=== PATIENT | male | born 1935 | race Hispanic/Latino ===

== ENCOUNTER 2017-10-01 01:09 | Inpatient (IN) | payer MEDICARE ==
[2017-10-01 01:09] VITALS: BMI 23.1
--- NOTE | 2017-10-01 01:29 | C.PDOC ---
History Of Present Illness 82 year old male presents to the ED for evaluation of palpitations. Patient reports he usually goes to dialysis Monday, and Monday, patient states he went to dialysis today. Patient reports he feels like his heart is jumping out of his chest, HR observed on monitor was 180. Patient denies CP, SOB , nausea, vomit, diaphoresis, headache, blurry vision. Time Seen by Provider: 10/01/17 01:28 Chief Complaint (Nursing): Palpitations History Per: Patient History/Exam Limitations: no limitations Onset/Duration Of Symptoms: Hrs Current Symptoms Are (Timing): Still Present Quality Of Symptoms: Rapid Heart Rate Recent travel outside of the [place]: No Additional History Per: Patient Past Medical History Reviewed: Historical Data, Nursing Documentation, Vital Signs Vital Signs: Last Vital Signs Temp Pulse 179 H 10/01/17 01:24 Resp 18 10/01/17 01:24 BP 130/79 10/01/17 01:24 Pulse Ox 99 10/01/17 01:56 - Medical History PMH: Atrial Fibrillation, HTN, Hyperlipidemia, End Stage Renal Disease, Chronic Kidney Disease Surgical History: Appendectomy, CABG, Coronary Stent Family History: States: Unknown Family Hx - Social History Hx Alcohol Use: No Hx Substance Use: No - Immunization History Hx Tetanus Toxoid Vaccination: No Hx Influenza Vaccination: Yes Hx Pneumococcal Vaccination: Yes Review Of Systems Constitutional: Negative for: Fever, Chills Cardiovascular: Positive for: Palpitations. Negative for: Chest Pain Respiratory: Negative for: Cough, Shortness of Breath Gastrointestinal: Negative for: Nausea, Vomiting, Abdominal Pain Skin: Negative for: Rash Neurological: Negative for: Weakness, Numbness, Headache, Dizziness Physical Exam - Physical Exam Appears: Non-toxic, No Acute Distress Skin: Warm, Dry Head: Normacephalic Nose: No Discharge, No Epistaxis, No Deformity Oral Mucosa: Dry Neck: Normal ROM, Supple Chest: Symmetrical, Other (dialysis shunt good thrill bruit) Cardiovascular: Rhythm Regular, No Murmur, Other (dialysis shunt good thrill bruit) Respiratory: No Decreased Breath Sounds, No Rales, No Rhonchi, No Wheezing Gastrointestinal/Abdominal: Soft, No Tenderness Extremity: Normal ROM, No Pedal Edema, No Calf Tenderness, No Deformity, No Swelling Neurological/Psych: Oriented x3 ED Course And Treatment - Laboratory Results Result Diagrams: 10/01/17 01:50 ECG: Interpreted By Me, Viewed By Me ECG Rhythm: SVT, ST/T Changes (non specific) Interpretation Of ECG: Infralateral ischemic changes Rate From EC O2 Sat by Pulse Oximetry: 99 (On RA) Pulse Ox Interpretation: Normal Progress Note: Plan: -EKG. -Blood work. -Adenosine 12 mg IVP. -Adenoside 6 mg IVP. -Cardizem 25 mg IVP. -UA. Patient was given 6 mg and 12 mg of adenosine which did not break the SVT, then patient was give also 25 mg of cardizem which decreased the HR to 97. Patient states he feels much better. repeat ekg nsr 124 lvh, nsstt changes Critical Care Time - Critical Care Note Total Time (in mins): 30 Documented critical care: time excludes all time spent performing seperately billable procedures. Disposition Discussed With : Stephan Trivedi Comment: accepted the pt on his service and took over the care at 2 AM Counseled Patient/Family Regarding: Studies Performed, Diagnosis - Disposition Disposition: HOSPITALIZED Disposition Time: 01:29 Condition: GUARDED Forms: Nival (Kiswahili) - POA Present On Arrival: None - Clinical Impression Clinical Impression: Palpitations, SVT (supraventricular tachycardia) - Scribe Statement The provider has reviewed the documentation as recorded by the Scribe Dariel Lee All medical record entries made by the Scribe were at my direction and personally dictated by me. I have reviewed the chart and agree that the record accurately reflects my personal performance of the history, physical exam, medical decision making, and the department course for this patient. I have also personally directed, reviewed, and agree with the discharge instructions and disposition. Decision To Admit - Pt Status Changed To: Hospital Disposition Of: Inpatient - Admit Certification Admit to Inpatient:: After my assessment, the patient will require hospitalization for at least two midnights. This is because of the severity of symptoms shown, intensity of services needed, and/or the medical risk in this patient being treated as an outpatient. - InPatient: Physician Admission Certification: I certify that this patient requires 2 or more midnights of care for the following reason:: After my assessment, the patient will require hospitalization for at least two midnights. This is because of the severity of symptoms shown, intensity of services needed, and/or the medical risk in this patient being treated as an outpatient. - . Bed Request Type: Telemetry Admitting Physician: Stephan Trivedi Patient Diagnosis: Palpitations, SVT (supraventricular tachycardia)
[2017-10-01 01:56] LABS: BASO # 0.1 K/uL (0.0-0.2); BASO % 1.4 % (0.0-2.0); EOS # 0.2 K/uL (0.0-0.7); EOS % 3.9 % (0.0-4.0); LYMPH # 1.8 K/uL (1.0-4.3); LYMPH % 27.3 % (20.0-40.0); MEAN CORPUSCULAR HEMOGLOBIN 35.1 pg (27.0-31.0); MEAN CORPUSCULAR HGB CONC 34.4 g/dL (33.0-37.0); MEAN PLATELET VOLUME 9.1 fL (7.2-11.7); MONO # 0.9 K/uL (0.0-0.8); MONO % 14.4 % (0.0-10.0); NEUT # 3.4 K/uL (1.8-7.0); NRBC % 0.1 % (0.0-2.0); RBC 3.41 Mil/uL (4.40-5.90); RED CELL DISTRIBUTION WIDTH 14.4 % (11.5-14.5); WHITE BLOOD COUNT 6.5 K/uL (4.8-10.8)
[2017-10-01 02:05] LABS: INR 1.1; PROTHROMBIN TIME 12.6 SECONDS (9.7-12.2)
[2017-10-01 02:10] LABS: ALB/GLOB RATIO 1.3 (1.0-2.1); ALBUMIN 4.1 g/dL (3.5-5.0); CALCIUM 9.2 mg/dl (8.6-10.4)
[2017-10-01] MEDS ORDERED: Potassium Chloride 20 mEq ER Tab PO ONE ×2 (02:14→03:42)
[2017-10-01 02:24] LABS: TROPONIN I 0.623 ng/mL (0.00-0.120)
--- NOTE | 2017-10-01 02:43 | CP.PCM.HP ---
History of Present Illness - History of Present Illness History of Present Illness: "My heart was beating fast" HPI: Mr Jose is a 82 year old male with a PMHx of CAD, AFib, HTN, ESRD on HD, HLD, who was brought to the ER by his because at around midnight today he felt like his heart was racing. He stated he was getting ready for bed and had a coughing fit and immediately after the coughing fit he felt his heart racing. His measured his heart rate which was around 200. He also had some chest tightness. He denied chest pain, dizziness, or lightheadedness. He has a history of palpitations and has had 3 prior ablations. He had a coronary stent placed in 2009 and a CABG in 2016. He also had a valve replacement in 2016. His collections clerk is Dr Kirk. He had hemodialysis yesterday morning at 5:30am. His supervisor graphite is Dr Higuera. PMD: Dr Bennett Shell Grader: Dr Kirk Airplane Pilot Helper: Dr Higuera PMHx: AFib, CAD, HLD, HTN, ESRD on HD (TThS) PSHx: Appendectomy at age 19, Prostectomy 2001, Hernia repair 2003, Coronary Stent 2009, Thoracentesis 2015, CABG 2015, Valve replacement 2015 Home Medications: Crestor 5mg PO QD, Cozaar 50mg PO QD, Eliquis 5mg PO BID, Renvela 800mg PO TID, Metoprolol Tartrate 50mg PO QD FamHx: Father had SD, DM2; Mother had SD, DM2 Social: Never smoked; Non-drinker; No illicit drugs; Lives with at home Present on Admission - Present on Admission Any Indicators Present on Admission: No Review of Systems - Constitutional Constitutional: As Per HPI. absent: Chills, Fever - EENT Eyes: absent: Change in Vision - Cardiovascular Cardiovascular: Palpitations. absent: Chest Pain, Lightheadedness - Respiratory Respiratory: absent: Cough - Gastrointestinal Gastrointestinal: absent: Abdominal Pain - Genitourinary Genitourinary: absent: Dysuria - Neurological Neurological: absent: Dizziness, Syncope Past Patient History - Infectious Disease Hx of Infectious Diseases: None - Past Social History Smoking Status: Never Smoked - CARDIAC Hx Atrial Fibrillation: Yes Hx Hypertension: Yes - PULMONARY Hx Respiratory Disorders: No Other/Comment: left pleural effusion - NEUROLOGICAL Hx Neurological Disorder: No - HEENT Hx HEENT Problems: No Hx Cataracts: Yes - RENAL Hx Chronic Kidney Disease: Yes - ENDOCRINE/METABOLIC Hx Endocrine Disorders: No - HEMATOLOGICAL/ONCOLOGICAL Hx Blood Disorders: No - INTEGUMENTARY Hx Dermatological Problems: No - MUSCULOSKELETAL/RHEUMATOLOGICAL Hx Musculoskeletal Disorders: No - GASTROINTESTINAL Hx Gastrointestinal Disorders: No Hx Constipation: Yes - GENITOURINARY/GYNECOLOGICAL Hx Genitourinary Disorders: No Hx Prostate Problems: Yes (removed at 67) - PSYCHIATRIC Hx Substance Use: No - SURGICAL HISTORY Hx Appendectomy: Yes Hx Coronary Artery Bypass Graft: Yes Hx Coronary Stent: Yes - ANESTHESIA Hx Anesthesia: Yes Hx Anesthesia Reactions: No Hx Malignant Hyperthermia: No Meds Allergies/Adverse Reactions: Allergies Allergy/AdvReac Type Severity Reaction Status Date / Time morphine Allergy VOMITING Verified 10/01/17 01:27 Physical Exam - Constitutional Appears: Well, Non-toxic, No Acute Distress - Head Exam Head Exam: ATRAUMATIC, NORMAL INSPECTION - Eye Exam Eye Exam: EOMI, Normal appearance - ENT Exam ENT Exam: Mucous Membranes Moist - Neck Exam Neck exam: Positive for: Full Rom, Normal Inspection. Negative for: Tenderness - Respiratory Exam Respiratory Exam: Clear to Auscultation Bilateral, NORMAL BREATHING PATTERN. absent: Rales, Rhonchi, Wheezes - Cardiovascular Exam Cardiovascular Exam: Tachycardia, Irregular Rhythm. absent: JVD - GI/Abdominal Exam GI & Abdominal Exam: Normal Bowel Sounds, Soft. absent: Distended, Firm, Guarding, Tenderness - Extremities Exam Extremities exam: Positive for: normal inspection Additional comments: Left arm with HD access site - Neurological Exam Neurological exam: Alert, Oriented x3 - Psychiatric Exam Psychiatric exam: Normal Affect, Normal Mood - Skin Skin Exam: Intact, Normal Color, Warm Additional comments: Midline surgical scar at sternum Results - Vital Signs Recent Vital Signs: Last Vital Signs Temp Pulse 179 H 10/01/17 01:24 Resp 18 10/01/17 01:24 BP 130/79 10/01/17 01:24 Pulse Ox 99 10/01/17 02:08 - Labs Result Diagrams: 10/01/17 01:50 10/01/17 01:50 Labs: Laboratory Results - last 24 hr 10/01/17 10/01/17 10/01/17 01:50 01:50 01:50 WBC 6.5 RBC 3.41 L Hgb 12.0 Hct 34.8 L MCV 102.0 H MCH 35.1 H MCHC 34.4 RDW 14.4 Plt Count 190 MPV 9.1 Neut % (Auto) 53.0 Lymph % (Auto) 27.3 [place] % (Auto) 14.4 H Eos % (Auto) 3.9 Baso % (Auto) 1.4 Neut # 3.4 Lymph # 1.8 [place] # 0.9 H Eos # 0.2 Baso # 0.1 PT 12.6 H INR 1.1 Sodium 136 Potassium 3.2 L Chloride 88 L Carbon Dioxide 35 H Anion Gap 16 BUN 21 H Creatinine 4.9 H Est GFR ( Amer) 14 Est GFR (Non-Af Amer) 11 Random Glucose 140 H Calcium 9.2 Total Bilirubin 0.6 AST 24 ALT 28 Alkaline Phosphatase 153 H Troponin I 0.6230 H* NT-Pro-B Natriuret Pep 17111 H Total Protein 7.3 Albumin 4.1 Globulin 3.2 Albumin/Globulin Ratio 1.3 Assessment & Plan (1) SVT (supraventricular tachycardia) Assessment and Plan: Consult Shell Grader Dr Kirk Regular rhythm tachy HR in 180's narrow complex not responded to adenosine, slowed with cardizem drip currently 7mg/hr, rhythm is sinus 1st deg av block with PAC s/p ablation x3 Con't home med Eliquis 5mg PO BID Cardizem Drip Status: Acute (2) ESRD (end stage renal disease) on dialysis Assessment and Plan: Consult Nephrology, Dr Higuera HD on [facility]Th[facility] Con't home med Renvela 800mg PO TID Status: Acute (3) CAD (coronary artery disease) Assessment and Plan: Coronary Stent 2009, CABG 2015, Valve replacement 2016 Trop elevated 2/2 ESRD Con't home med crestor 5mg PO QD Con't home med Cozaar 50mg PO QD Con't home med metoprolol tartrate 50mg PO QD Status: Acute (4) HLD (hyperlipidemia) Assessment and Plan: Con't home med crestor 5mg PO QD Status: Acute (5) HTN (hypertension) Assessment and Plan: BP well controlled Con't home med Cozaar 50mg PO QD Con't home med metoprolol tartrate 50mg PO QD Status: Acute (6) History of atrial fibrillation Assessment and Plan: s/p ablation x3; cont' home med eliquis 5mg PO BID Status: Acute (7) Prophylactic measure Assessment and Plan: Eliquis 5mg PO BID, SCDs Protonix 40mg PO QD Heart healthy Diet Status: Acute
[2017-10-01] MEDS ORDERED: Metoprolol 1 mg/ml Inj IVP ONE (03:16)
--- NOTE | 2017-10-01 05:44 | CP.PCM.PN ---
Subjective - Date & Time of Evaluation Date of Evaluation: 10/01/17 Time of Evaluation: 05:38 - Subjective Subjective: Assessment * Regular rhythm tachy HR in 180's narrow complex not responded to adenosine, slowed with cardizem drip currently 7mg/hr, rhythm is sinus 1st deg av block with PAC * H/o Aflutter in past s/p ablation x2, h/o AVR, h/o CABG 1 1/2 yrs back after with the Aflutter stopped, pt on eliquis, Dr. Kirk is general magistrate. * H/o HTN * ESRD on hd Dr. Higuera is his physician Plan * Patient given additional dose of metoprolol, continue home meds, continue non titrable cardizem * May need w/u for ischemia * Cardiology and nephrology consult * See orders for detail. Objective - Vital Signs/Intake and Output Vital Signs (last 24 hours): Temp Pulse Resp BP Pulse Ox 179 H 18 112/58 L 99 10/01/17 01:24 10/01/17 01:24 10/01/17 03:20 10/01/17 02:08 - Medications Medications: Current Medications Apixaban (Eliquis) 5 mg PO BID [facility] Diltiazem HCl 125 mg/ Sodium (Chloride) 125 mls @ 5 mls/hr IV .Q24H [facility] PRN Reason: 5 MG/HR Last Admin: 10/01/17 01:53 Dose: 5 mls/hr Losartan Potassium (Cozaar) 50 mg PO DAILY [facility] Metoprolol Tartrate (Lopressor) 50 mg PO DAILY [facility] Rosuvastatin Calcium (Crestor) 5 mg PO HS [facility] Sevelamer Carbonate (Renvela) 800 mg PO TIDCC [facility] - Labs Labs: 10/01/17 01:50 10/01/17 01:50 PT 12.6 SECONDS (9.7-12.2) H 10/01/17 01:50 INR 1.1 10/01/17 01:50
--- NOTE | 2017-10-01 08:36 | CP.PCM.PN ---
<Tammy Mary - Last Filed: 10/01/17 11:23> Subjective - Date & Time of Evaluation Date of Evaluation: 10/01/17 Time of Evaluation: 09:00 - Subjective Subjective: Medicine progress note for Dr. Medina: Patient was seen and examined at bedside this morning. Patient denied chest pain , palpitations, or SOB. He states he is able to eat normally without N/V. He had no complaints today. States he has had many episodes of rapid heart rate due to A fib in the past. We will wait for Dr. Kirk and Dr. Higuera to evaluate the patient before discharge. The patient was requesting to go home. Objective - Vital Signs/Intake and Output Vital Signs (last 24 hours): Temp Pulse Resp BP Pulse Ox 98.1 F 54 L 18 123/54 L 100 10/01/17 05:15 10/01/17 07:15 10/01/17 07:15 10/01/17 07:15 10/01/17 07:15 - Medications Medications: Current Medications Apixaban (Eliquis) 5 mg PO BID [facility] Diltiazem HCl 125 mg/ Sodium (Chloride) 125 mls @ 5 mls/hr IV .Q24H [facility] PRN Reason: 5 MG/HR Last Admin: 10/01/17 01:53 Dose: 5 mls/hr Losartan Potassium (Cozaar) 50 mg PO DAILY [facility] Metoprolol Tartrate (Lopressor) 50 mg PO DAILY [facility] Pantoprazole Sodium (Protonix Ec Tab) 40 mg PO DAILY [facility] Rosuvastatin Calcium (Crestor) 5 mg PO HS [facility] Sevelamer Carbonate (Renvela) 800 mg PO TIDCC [facility] - Labs Labs: 10/01/17 01:50 10/01/17 01:50 PT 12.6 SECONDS (9.7-12.2) H 10/01/17 01:50 INR 1.1 10/01/17 01:50 - Constitutional Appears: Non-toxic, No Acute Distress - Head Exam Head Exam: ATRAUMATIC, NORMAL INSPECTION - Eye Exam Eye Exam: EOMI - ENT Exam ENT Exam: Mucous Membranes Moist - Respiratory Exam Respiratory Exam: Clear to Ausculation Bilateral, NORMAL BREATHING PATTERN. absent: Respiratory Distress - Cardiovascular Exam Cardiovascular Exam: REGULAR RHYTHM, +S1, +S2 - GI/Abdominal Exam GI & Abdominal Exam: Soft, Normal Bowel Sounds. absent: Distended, Firm, Guarding, Tenderness - Extremities Exam Extremities Exam: Normal Inspection. absent: Calf Tenderness - Back Exam Back Exam: NORMAL INSPECTION. absent: CVA tenderness (L), CVA tenderness (R) - Neurological Exam Neurological Exam: Alert, Awake, CN II-XII Intact, Oriented x3 - Psychiatric Exam Psychiatric exam: Normal Affect, Normal Mood - Skin Skin Exam: Dry, Intact, Normal Color, Warm Assessment and Plan - Assessment and Plan (Free Text) Assessment: SVT (supraventricular tachycardia) Assessment and Plan: Consult Assembler Wet Wash Dr Kirk - f/u recs HR in the 60s on tele monitor Overnight: Regular rhythm tachy HR in 180's narrow complex not responded to adenosine, slowed with cardizem drip currently 7mg/hr, rhythm is sinus 1st deg av block with PAC. Cardizem drip was discontinued because patients HR was down into the 50s s/p ablation x3 Eliquis 5mg PO BID Trop #1 - 0.6230, Trop #2 - 0.9560 f/u ekg Status: Acute ESRD (end stage renal disease) on dialysis Assessment and Plan: Consult Nephrology, Dr Higuera HD on [facility]Th[facility] Renvela 800mg PO TID Status: Acute CAD (coronary artery disease) Assessment and Plan: Coronary Stent 2009, CABG 2015, Valve replacement 2015 Trop elevated 2/2 ESRD crestor 5mg PO QD Cozaar 50mg PO QD metoprolol tartrate 50mg PO QD Status: Acute HLD (hyperlipidemia) Assessment and Plan: Crestor 5mg PO QD Status: Acute HTN (hypertension) Assessment and Plan: BP well controlled Cozaar 50mg PO QD metoprolol tartrate 50mg PO QD Status: Acute History of atrial fibrillation Assessment and Plan: s/p ablation x3; eliquis 5mg PO BID Status: Acute Prophylactic measure Assessment and Plan: Eliquis 5mg PO BID SCDs Protonix 40mg PO QD Heart healthy Diet Status: Acute <Tramaine Medina - Last Filed: 10/01/17 15:03> Objective - Vital Signs/Intake and Output Vital Signs (last 24 hours): Temp Pulse Resp BP Pulse Ox 97.5 F L 61 20 133/58 L 98 10/01/17 12:14 10/01/17 12:14 10/01/17 12:14 10/01/17 12:14 10/01/17 12:14 Intake and Output: 10/01/17 10/01/17 06:59 18:59 Intake Total 480 Balance 480 - Medications Medications: Current Medications Apixaban (Eliquis) 5 mg PO BID [facility] Last Admin: 10/01/17 10:09 Dose: 5 mg Aspirin (Ecotrin) 81 mg PO DAILY [facility] Diltiazem HCl (Cardizem) 30 mg PO TID [facility] Last Admin: 10/01/17 13:59 Dose: Not Given Diltiazem HCl 125 mg/ Sodium (Chloride) 125 mls @ 5 mls/hr IV .Q24H [facility] PRN Reason: 5 MG/HR Last Admin: 10/01/17 01:53 Dose: 5 mls/hr Losartan Potassium (Cozaar) 50 mg PO DAILY [facility] Last Admin: 10/01/17 10:09 Dose: 50 mg Metoprolol Tartrate (Lopressor) 25 mg PO BID [facility] Last Admin: 10/01/17 12:14 Dose: 25 mg Pantoprazole Sodium (Protonix Ec Tab) 40 mg PO DAILY [facility] Last Admin: 10/01/17 10:09 Dose: 40 mg Potassium Chloride (K-Dur 20 Meq Er Tab) 20 meq PO BRK [facility] Last Admin: 10/01/17 13:21 Dose: 20 meq Rosuvastatin Calcium (Crestor) 5 mg PO HS [facility] Sevelamer Carbonate (Renvela) 800 mg PO TIDCC [facility] Last Admin: 10/01/17 12:10 Dose: 800 mg - Labs Labs: 10/01/17 09:40 10/01/17 09:40 PT 12.6 SECONDS (9.7-12.2) H 10/01/17 01:50 INR 1.1 10/01/17 01:50 Attending/Attestation - Attestation I have personally seen and examined this patient.: Yes I have fully participated in the care of the patient.: Yes I have reviewed all pertinent clinical information, including history, physical exam and plan: Yes Notes (Text): Medical attending: Patient was seen and examined by me. Agree with the above note by the resident This is a 82-year-old male with an extensive cardiac history including valvular replacement 2016, atrial fibrillation, CAD, CABG surgery in 2016 and end-stage renal disease for which she gets to 6 and Saturdays hemodialysis. He came in with the chief complaint of sensation of rapid heart rate. He does have history of atrial fibrillation. In the emergency room he initially received adenosine for what was initially thought to be SVT, this did not work he was then given Cardizem which then slowed down the rate and was subsequently placed on a Cardizem drip earlier this morning when he was readmitted. Before he reached the telemetry floor, the patient's heart rate returned to the 50s to 60s range and the Cardizem drip was stopped. He is now on PO lopressor and PO Cardizem By the time we saw the patient this morning, he reported feeling fine. He was not having shortness of breath. He was not having chest pain. He reported he no longer had the sensation of palpitations. He requested to go home, however we advised him he should be evaluated by his refuge worker and vice president and portfolio manager He did have a chest XRAY and it did not suggest any significant amounts of pleural effusion or pulmonary edema Tramaine Medina
--- NOTE | 2017-10-01 08:49 | RAD ---
PROCEDURE: CHEST RADIOGRAPH, 1 VIEW HISTORY: chest pain COMPARISON: Comparison is made to 08/04/2017 FINDINGS: LUNGS: No evidence of new infiltrate or consolidation in the lungs. PLEURA: Blunting of the left costophrenic angle is again noted likely due to pleural thickening. The possibility of small left pleural effusion is not totally excluded. CARDIOVASCULAR: The cardiac silhouette is prominent in size. Post cardiac surgery changes are again noted. OSSEOUS STRUCTURES: No significant abnormalities. VISUALIZED UPPER ABDOMEN: Normal. OTHER FINDINGS: None. IMPRESSION: No significant interval change noted since the previous exam.
[2017-10-01] MEDS: Pantoprazole 40 mg EC Tab PO SCH (10:09)
[2017-10-01 10:12] LABS: BASO # 0.1 K/uL (0.0-0.2); BASO % 1.4 % (0.0-2.0); EOS # 0.3 K/uL (0.0-0.7); EOS % 4.9 % (0.0-4.0); HEMOGLOBIN 11.1 g/dL (12.0-18.0); LYMPH # 1.5 K/uL (1.0-4.3); LYMPH % 21.6 % (20.0-40.0); MEAN CELL VOLUME 102.9 fL (80.0-94.0); MEAN CORPUSCULAR HEMOGLOBIN 34.9 pg (27.0-31.0); MEAN CORPUSCULAR HGB CONC 33.9 g/dL (33.0-37.0); MONO # 0.8 K/uL (0.0-0.8); MONO % 12.2 % (0.0-10.0); NEUT % 59.9 % (50.0-75.0); RBC 3.17 Mil/uL (4.40-5.90); RED CELL DISTRIBUTION WIDTH 15.1 % (11.5-14.5); WHITE BLOOD COUNT 6.7 K/uL (4.8-10.8)
[2017-10-01 10:23] LABS: ALB/GLOB RATIO 1.3 (1.0-2.1); ALBUMIN 3.7 g/dL (3.5-5.0); CALCIUM 8.9 mg/dl (8.6-10.4); CK-MB 2.25 ng/mL (0.0-3.38); MAGNESIUM 2.1 mg/dL (1.6-2.3)
[2017-10-01 10:35] LABS: TROPONIN I 0.956 ng/mL (0.00-0.120)
--- NOTE | 2017-10-01 12:49 | CP.PCM.CON ---
History of Present Illness - History of Present Illness History of Present Illness: THe pt is an 82 year old man with CKD, on dialysis, with a long PMH. Pt had CABG avr in 201g, after previously having stents. He had ablation in 2012 twice for svt. Pt had a cough recenlty, and repeat outpatient echo demonstrated normal LV EF and normal functioning bio aortic valve. A chest ct was also negative. Pt had his dialysis volume increased, and cough resolved, suggesting he had a degree of diastolic dysfunction. ] Pt has had no chest pain, and was lifting his hands over his head to take off a sweater and noticed fast heart rates. He went to ER and rapid svt noted with marked st depression. Pt converted to nsr with IOV cardezem. Feels well today and wants to go home. TNI has risen to ,9. ECG in s elbert reveals mild first degree av block and diffuse non specific st changes. Review of Systems - Review of Systems All systems: reviewed and no additional remarkable complaints except (as above) Past Patient History - Infectious Disease Hx of Infectious Diseases: None - Past Medical History & Family History Past Medical History?: Yes - Past Social History Smoking Status: Never Smoked - CARDIAC Hx Atrial Fibrillation: Yes Hx Hypertension: Yes - PULMONARY Hx Respiratory Disorders: No Other/Comment: left pleural effusion - NEUROLOGICAL Hx Neurological Disorder: No - HEENT Hx HEENT Problems: No Hx Cataracts: Yes - RENAL Hx Chronic Kidney Disease: Yes - ENDOCRINE/METABOLIC Hx Endocrine Disorders: No - HEMATOLOGICAL/ONCOLOGICAL Hx Blood Disorders: No - INTEGUMENTARY Hx Dermatological Problems: No - MUSCULOSKELETAL/RHEUMATOLOGICAL Hx Falls: No - GASTROINTESTINAL Hx Gastrointestinal Disorders: No Hx Constipation: Yes - GENITOURINARY/GYNECOLOGICAL Hx Genitourinary Disorders: No Hx Prostate Problems: Yes (removed at 67) - PSYCHIATRIC Hx Substance Use: No - SURGICAL HISTORY Hx Appendectomy: Yes Hx Coronary Artery Bypass Graft: Yes Hx Coronary Stent: Yes - ANESTHESIA Hx Anesthesia: Yes Hx Anesthesia Reactions: No Hx Malignant Hyperthermia: No Meds Allergies/Adverse Reactions: Allergies Allergy/AdvReac Type Severity Reaction Status Date / Time morphine Allergy VOMITING Verified 10/01/17 01:27 - Medications Medications: Current Medications Apixaban (Eliquis) 5 mg PO BID [facility] Last Admin: 10/01/17 10:09 Dose: 5 mg Diltiazem HCl 125 mg/ Sodium (Chloride) 125 mls @ 5 mls/hr IV .Q24H [facility] PRN Reason: 5 MG/HR Last Admin: 10/01/17 01:53 Dose: 5 mls/hr Losartan Potassium (Cozaar) 50 mg PO DAILY [facility] Last Admin: 10/01/17 10:09 Dose: 50 mg Metoprolol Tartrate (Lopressor) 25 mg PO BID [facility] Last Admin: 10/01/17 12:14 Dose: 25 mg Pantoprazole Sodium (Protonix Ec Tab) 40 mg PO DAILY [facility] Last Admin: 10/01/17 10:09 Dose: 40 mg Rosuvastatin Calcium (Crestor) 5 mg PO [facility] Sevelamer Carbonate (Renvela) 800 mg PO TIDCC [facility] Last Admin: 10/01/17 12:10 Dose: 800 mg Physical Exam - Constitutional Appears: Well - Head Exam Head Exam: ATRAUMATIC - Eye Exam Eye Exam: EOMI, Normal appearance - ENT Exam ENT Exam: Mucous Membranes Moist - Cardiovascular Exam Cardiovascular Exam: REGULAR RHYTHM - GI/Abdominal Exam GI & Abdominal Exam: Normal Bowel Sounds - Exam External exam: NORMAL EXTERNAL EXAM - Extremities Exam Extremities exam: Positive for: normal inspection - Back Exam Back exam: NORMAL INSPECTION - Neurological Exam Neurological exam: Alert, Normal Gait, Oriented x3, Reflexes Normal - Psychiatric Exam Psychiatric exam: Normal Affect - Skin Skin Exam: Normal Color Results - Vital Signs Recent Vital Signs: Last Vital Signs Temp 97.5 F L 10/01/17 12:14 Pulse 61 10/01/17 12:14 Resp 20 10/01/17 12:14 BP 133/58 L 10/01/17 12:14 Pulse Ox 98 10/01/17 12:14 - Labs Result Diagrams: 10/01/17 09:40 10/01/17 09:40 Labs: Laboratory Results - last 24 hr 10/01/17 10/01/17 10/01/17 01:50 01:50 01:50 WBC 6.5 RBC 3.41 L Hgb 12.0 Hct 34.8 L MCV 102.0 H MCH 35.1 H MCHC 34.4 RDW 14.4 Plt Count 190 MPV 9.1 Neut % (Auto) 53.0 Lymph % (Auto) 27.3 Hunt % (Auto) 14.4 H Eos % (Auto) 3.9 Baso % (Auto) 1.4 Neut # 3.4 Lymph # 1.8 Hunt # 0.9 H Eos # 0.2 Baso # 0.1 PT 12.6 H INR 1.1 Sodium 136 Potassium 3.2 L Chloride 88 L Carbon Dioxide 35 H Anion Gap 16 BUN 21 H Creatinine 4.9 H Est GFR ( Amer) 14 Est GFR (Non-Af Amer) 11 Random Glucose 140 H Calcium 9.2 Phosphorus Magnesium Total Bilirubin 0.6 AST 24 ALT 28 Alkaline Phosphatase 153 H Total Creatine Kinase CK-MB (Mass) Troponin I 0.6230 H* NT-Pro-B Natriuret Pep 81420 H Total Protein 7.3 Albumin 4.1 Globulin 3.2 Albumin/Globulin Ratio 1.3 10/01/17 10/01/17 09:40 09:40 WBC 6.7 RBC 3.17 L Hgb 11.1 L Hct 32.6 L MCV 102.9 H MCH 34.9 H MCHC 33.9 RDW 15.1 H Plt Count 172 MPV 9.0 Neut % (Auto) 59.9 Lymph % (Auto) 21.6 Hunt % (Auto) 12.2 H Eos % (Auto) 4.9 H Baso % (Auto) 1.4 Neut # 4.0 Lymph # 1.5 Hunt # 0.8 Eos # 0.3 Baso # 0.1 PT INR Sodium 133 Potassium 3.6 Chloride 90 L Carbon Dioxide 37 H Anion Gap 10 BUN 26 H Creatinine 5.0 H Est GFR ( Amer) 14 Est GFR (Non-Af Amer) 11 Random Glucose 129 H Calcium 8.9 Phosphorus 4.0 Magnesium 2.1 Total Bilirubin 0.6 AST 26 ALT 29 Alkaline Phosphatase 113 Total Creatine Kinase 51 L CK-MB (Mass) 2.25 Troponin I 0.9560 H* NT-Pro-B Natriuret Pep Total Protein 6.6 Albumin 3.7 Globulin 2.9 Albumin/Globulin Ratio 1.3 - EKG Data EKG comments: by me as above Assessment & Plan - Assessment and Plan (Free Text) Assessment: 1. SVT: pt cannot tolerate amiodrone (tried in the past). Will try to add in addition a low dose of cardezem if HR and BP allow. Pt is advsied to have repeat ablation, after a nuclear stress test. 2. Pt has no angina, but during tachycardia, marked st depression and a small non stemi from demand ischemia. add asa. Pt is on eliquis already. He is on a statin. a nuclear stress test is advised prior to ablation to assess for ischemia (after cabg ion 2016). If pt is stable tomorrow, he will prefer to do this as outpatient. 3. Replace K. Mag level is good. 4. TFTs
[2017-10-01] MEDS: Potassium Chloride 20 mEq ER Tab PO SCH (13:21)
[2017-10-01 18:05] LABS: URINE BILIRUBIN NEGATIVE (NEGATIVE); URINE BLOOD NEGATIVE (NEGATIVE); URINE CLARITY Clear (Clear); URINE COLOR Yellow (YELLOW); URINE GLUCOSE (UA) NORMAL (Normal); URINE LEUKOCYTE ESTERASE NEG Leu/uL (Negative); URINE NITRATE NEGATIVE (NEGATIVE); URINE PROTEIN 2+ mg/dL (NEGATIVE); URINE UROBILINOGEN NORMAL mg/dL (0.2-1.0)
[2017-10-02 01:29] VITALS: RESP 20
[2017-10-02 07:58] VITALS: PULSE 72; TEMP 97.5; O2SAT 96
[2017-10-02 08:25] LABS: BASO # 0.1 K/uL (0.0-0.2); BASO % 1.2 % (0.0-2.0); EOS # 0.5 K/uL (0.0-0.7); EOS % 5.8 % (0.0-4.0); HEMOGLOBIN 11.2 g/dL (12.0-18.0); LYMPH # 1.6 K/uL (1.0-4.3); LYMPH % 20.3 % (20.0-40.0); MEAN CELL VOLUME 102.2 fL (80.0-94.0); MEAN CORPUSCULAR HEMOGLOBIN 35.5 pg (27.0-31.0); MEAN CORPUSCULAR HGB CONC 34.7 g/dL (33.0-37.0); MONO # 0.8 K/uL (0.0-0.8); MONO % 10.8 % (0.0-10.0); NEUT # 4.8 K/uL (1.8-7.0); NEUT % 61.9 % (50.0-75.0); RBC 3.17 Mil/uL (4.40-5.90); RED CELL DISTRIBUTION WIDTH 14.6 % (11.5-14.5); WHITE BLOOD COUNT 7.8 K/uL (4.8-10.8)
--- NOTE | 2017-10-02 08:39 | CP.PCM.DIS ---
<BrittonYosef R - Last Filed: 10/02/17 10:22> Provider - Provider Date of Admission: 10/01/17 02:06 Attending physician: Stephan Trivedi MD Primary care physician: PMD: Dr Bennett Consults: Research Worker Encyclopedia: Dr Kirk Online Media Buyer: Dr Higuera Time Spent in preparation of Discharge (in minutes): 42 Diagnosis - Discharge Diagnosis (1) SVT (supraventricular tachycardia) Status: Resolved Priority: High (2) ESRD (end stage renal disease) on dialysis Status: Chronic Priority: Medium (3) CAD (coronary artery disease) Status: Chronic Priority: Medium (4) HLD (hyperlipidemia) Status: Chronic Priority: Medium (5) HTN (hypertension) Status: Acute (6) History of atrial fibrillation Status: Chronic Priority: Medium (7) Prophylactic measure Status: Resolved Priority: Low Hospital Course - Lab Results Lab Results: Most Recent Lab Values WBC 7.8 K/uL (4.8-10.8) 10/02/17 08:18 RBC 3.17 Mil/uL (4.40-5.90) L 10/02/17 08:18 Hgb 11.2 g/dL (12.0-18.0) L 10/02/17 08:18 Hct 32.4 % (35.0-51.0) L 10/02/17 08:18 MCV 102.2 fL (80.0-94.0) H 10/02/17 08:18 MCH 35.5 pg (27.0-31.0) H 10/02/17 08:18 MCHC 34.7 g/dL (33.0-37.0) 10/02/17 08:18 RDW 14.6 % (11.5-14.5) H 10/02/17 08:18 Plt Count 171 K/uL (130-400) 10/02/17 08:18 MPV 9.0 fL (7.2-11.7) 10/02/17 08:18 Neut % (Auto) 61.9 % (50.0-75.0) 10/02/17 08:18 Lymph % (Auto) 20.3 % (20.0-40.0) 10/02/17 08:18 Snyder % (Auto) 10.8 % (0.0-10.0) H 10/02/17 08:18 Eos % (Auto) 5.8 % (0.0-4.0) H 10/02/17 08:18 Baso % (Auto) 1.2 % (0.0-2.0) 10/02/17 08:18 Neut # 4.8 K/uL (1.8-7.0) 10/02/17 08:18 Lymph # 1.6 K/uL (1.0-4.3) 10/02/17 08:18 Snyder # 0.8 K/uL (0.0-0.8) 10/02/17 08:18 Eos # 0.5 K/uL (0.0-0.7) 10/02/17 08:18 Baso # 0.1 K/uL (0.0-0.2) 10/02/17 08:18 PT 12.6 SECONDS (9.7-12.2) H 10/01/17 01:50 INR 1.1 10/01/17 01:50 Sodium 133 mmol/L (132-148) 10/01/17 09:40 Potassium 3.6 mmol/L (3.6-5.2) 10/01/17 09:40 Chloride 90 mmol/L (98-107) L 10/01/17 09:40 Carbon Dioxide 37 mmol/L (22-30) H 10/01/17 09:40 Anion Gap 10 (10-20) 10/01/17 09:40 BUN 26 mg/dL (9-20) H 10/01/17 09:40 Creatinine 5.0 mg/dL (0.8-1.5) H 10/01/17 09:40 Est GFR ( Amer) 14 10/01/17 09:40 Est GFR (Non-Af Amer) 11 10/01/17 09:40 Random Glucose 129 mg/dL (75-110) H 10/01/17 09:40 Calcium 8.9 mg/dl (8.6-10.4) 10/01/17 09:40 Phosphorus 4.0 mg/dL (2.5-4.5) 10/01/17 09:40 Magnesium 2.1 mg/dL (1.6-2.3) 10/01/17 09:40 Total Bilirubin 0.6 mg/dL (0.2-1.3) 10/01/17 09:40 AST 26 U/L (17-59) 10/01/17 09:40 ALT 29 U/L (21-72) 10/01/17 09:40 Alkaline Phosphatase 113 U/L (38-126) 10/01/17 09:40 Total Creatine Kinase 51 U/L (55-170) L 10/01/17 09:40 CK-MB (Mass) 2.25 ng/mL (0.0-3.38) 10/01/17 09:40 Troponin I 0.9560 ng/mL (0.00-0.120) H* 10/01/17 09:40 NT-Pro-B Natriuret Pep 16506 pg/mL (0-900) H 10/01/17 01:50 Total Protein 6.6 g/dL (6.3-8.3) 10/01/17 09:40 Albumin 3.7 g/dL (3.5-5.0) 10/01/17 09:40 Globulin 2.9 gm/dL (2.2-3.9) 10/01/17 09:40 Albumin/Globulin Ratio 1.3 (1.0-2.1) 10/01/17 09:40 Urine Color Yellow (YELLOW) 10/01/17 17:45 Urine Clarity Clear (Clear) 10/01/17 17:45 Urine pH 8.0 (5.0-8.0) 10/01/17 17:45 Ur Specific [place] 1.015 (1.003-1.030) 10/01/17 17:45 Urine Protein 2+ mg/dL (NEGATIVE) H 10/01/17 17:45 Urine Glucose (UA) Normal mg/dL (Normal) 10/01/17 17:45 Urine Ketones Negative mg/dL (NEGATIVE) 10/01/17 17:45 Urine Blood Negative (NEGATIVE) 10/01/17 17:45 Urine Nitrate Negative (NEGATIVE) 10/01/17 17:45 Urine Bilirubin Negative (NEGATIVE) 10/01/17 17:45 Urine Urobilinogen Normal mg/dL (0.2-1.0) 10/01/17 17:45 Ur Leukocyte Esterase Neg Maycol/uL (Negative) 10/01/17 17:45 Urine WBC (Auto) < 1 /hpf (0-5) 10/01/17 17:45 Urine RBC (Auto) 2 /hpf (0-3) 10/01/17 17:45 - Hospital Course Hospital Course: "My heart was beating fast" HPI: Mr Jose is a 82 year old male with a PMHx of CAD, AFib, HTN, ESRD on HD, HLD, who was brought to the ER by his because at around midnight today he felt like his heart was racing. He stated he was getting ready for bed and had a coughing fit and immediately after the coughing fit he felt his heart racing. His measured his heart rate which was around 200. He also had some chest tightness. He denied chest pain, dizziness, or lightheadedness. He has a history of palpitations and has had 3 prior ablations. He had a coronary stent placed in 2009 and a CABG in 2016. He also had a valve replacement in 2016. His manager recruitment is Dr Kirk. He had hemodialysis yesterday morning at 5:30am. His intellectual property manager is Dr Higuera. PMD: Dr Bennett Research Worker Encyclopedia: Dr Kirk Online Media Buyer: Dr Higuera PMHx: AFib, CAD, HLD, HTN, ESRD on HD (TThS) PSHx: Appendectomy at age 19, Prostectomy 2001, Hernia repair 2003, Coronary Stent 2009, Thoracentesis 2015, CABG 2015, Valve replacement 2015 Home Medications: Crestor 5mg PO QD, Cozaar 50mg PO QD, Eliquis 5mg PO BID, Renvela 800mg PO TID, Metoprolol Tartrate 50mg PO QD FamHx: Father had VT, DM2; Mother had VT, DM2 Social: Never smoked; Non-drinker; No illicit drugs; Lives with at home HOSPITAL COURSE: This is a patient with a PMHx of SVT and AFib (including what is stated above) who was given various medications to break him out of his SVT. He presented with regular rhythm tachy HR in 180's narrow complex which did not respond to adenosine. The rate slowed with cardizem drip which ran at 7mg/hr and resulted in a rhythm sinus 1st deg av block with PAC. The cardizem drip was eventually discontinued due to a HR in the 50s. His cardiolgist, Dr Kirk was consulted and left the following note (please see his full note for more details): 1. SVT: pt cannot tolerate amiodrone (tried in the past). Will try to add in addition a low dose of cardezem if HR and BP allow. Pt is advsied to have repeat ablation, after a nuclear stress test. 2. Pt has no angina, but during tachycardia, marked st depression and a small non stemi from demand ischemia. add asa. Pt is on eliquis already. He is on a statin. a nuclear stress test is advised prior to ablation to assess for ischemia (after cabg ion 2016). If pt is stable tomorrow, he will prefer to do this as outpatient. 3. Replace K. Mag level is good. 4. TFTs He was given his home medications to treat his other chronic conditions which include ESRD on HD, CAD, HLD, HTN and a Hx of AFib. Discharge Exam - Head Exam Head Exam: ATRAUMATIC - Additional Findings Additional findings: - Constitutional Appears: Non-toxic, No Acute Distress - Head Exam Head Exam: ATRAUMATIC, NORMAL INSPECTION - Eye Exam Eye Exam: EOMI - ENT Exam ENT Exam: Mucous Membranes Moist - Respiratory Exam Respiratory Exam: Clear to Ausculation Bilateral, NORMAL BREATHING PATTERN. absent: Respiratory Distress - Cardiovascular Exam Cardiovascular Exam: REGULAR RHYTHM, +S1, +S2 - GI/Abdominal Exam GI & Abdominal Exam: Soft, Normal Bowel Sounds. absent: Distended, Firm, Guarding, Tenderness - Extremities Exam Extremities Exam: Normal Inspection. absent: Calf Tenderness - Back Exam Back Exam: NORMAL INSPECTION. absent: CVA tenderness (L), CVA tenderness (R) - Neurological Exam Neurological Exam: Alert, Awake, CN II-XII Intact, Oriented x3 - Psychiatric Exam Psychiatric exam: Normal Affect, Normal Mood - Skin Skin Exam: Dry, Intact, Normal Color, Warm Discharge Plan - Discharge Medications Prescriptions: Aspirin [Ecotrin] 81 mg PO DAILY 30 Days #30 tabec Metoprolol Tartrate [Lopressor] 25 mg PO BID 30 Days #60 tab - Follow Up Plan Condition: GOOD Disposition: HOME/ ROUTINE Instructions: Metoprolol (By mouth), Apixaban (By mouth), Supraventricular Tachycardia (DC), Supraventricular Tachycardia (GEN), Palpitations (DC), Palpitations (GEN) Additional Instructions: Patient is medically stable for discharge. Your manager recruitment has recommended you take the following new medications: 1. Aspirin 81mg 1 tablet once a day Please resume all your other home medications which include Eliquis, Cozaar, Metoprolol Tartrate, Crestor, and Renvela. Please note that you should be taking Metoprolol Tartrate 25mg twice a day - If you have 50mg tablets, make sure to break them in half and take half in the morning and half in the evening. Please make an appointment and follow-up with your Research Worker Encyclopedia, Dr Kirk. He has recommended a Stress Test and a possible ablation afterwards. Please follow-up with your PMD, Dr Bennett, so he may be aware of this hospital stay. Please resume hemodialysis as scheduled. If symptoms return or worsen, please return to the ER. Referrals: Surendra Kirk MD [Staff Provider] - Tramaine Medina DO [Staff Provider] - Silvestre Bennett DO [Doctor Osteopathy] - <Tramaine Medina - Last Filed: 10/02/17 18:46> Provider - Provider Date of Admission: 10/01/17 02:06 Attending physician: Stephan Trivedi MD Hospital Course - Lab Results Lab Results: Most Recent Lab Values WBC 7.8 K/uL (4.8-10.8) 10/02/17 08:18 RBC 3.17 Mil/uL (4.40-5.90) L 10/02/17 08:18 Hgb 11.2 g/dL (12.0-18.0) L 10/02/17 08:18 Hct 32.4 % (35.0-51.0) L 10/02/17 08:18 MCV 102.2 fL (80.0-94.0) H 10/02/17 08:18 MCH 35.5 pg (27.0-31.0) H 10/02/17 08:18 MCHC 34.7 g/dL (33.0-37.0) 10/02/17 08:18 RDW 14.6 % (11.5-14.5) H 10/02/17 08:18 Plt Count 171 K/uL (130-400) 10/02/17 08:18 MPV 9.0 fL (7.2-11.7) 10/02/17 08:18 Neut % (Auto) 61.9 % (50.0-75.0) 10/02/17 08:18 Lymph % (Auto) 20.3 % (20.0-40.0) 10/02/17 08:18 Snyder % (Auto) 10.8 % (0.0-10.0) H 10/02/17 08:18 Eos % (Auto) 5.8 % (0.0-4.0) H 10/02/17 08:18 Baso % (Auto) 1.2 % (0.0-2.0) 10/02/17 08:18 Neut # 4.8 K/uL (1.8-7.0) 10/02/17 08:18 Lymph # 1.6 K/uL (1.0-4.3) 10/02/17 08:18 Snyder # 0.8 K/uL (0.0-0.8) 10/02/17 08:18 Eos # 0.5 K/uL (0.0-0.7) 10/02/17 08:18 Baso # 0.1 K/uL (0.0-0.2) 10/02/17 08:18 PT 12.6 SECONDS (9.7-12.2) H 10/01/17 01:50 INR 1.1 10/01/17 01:50 Sodium 135 mmol/L (132-148) 10/02/17 08:18 Potassium 4.0 mmol/L (3.6-5.2) 10/02/17 08:18 Chloride 94 mmol/L (98-107) L 10/02/17 08:18 Carbon Dioxide 33 mmol/L (22-30) H 10/02/17 08:18 Anion Gap 13 (10-20) 10/02/17 08:18 BUN 33 mg/dL (9-20) H 10/02/17 08:18 Creatinine 6.8 mg/dL (0.8-1.5) H 10/02/17 08:18 Est GFR ( Amer) 10 10/02/17 08:18 Est GFR (Non-Af Amer) 8 10/02/17 08:18 Random Glucose 88 mg/dL (75-110) 10/02/17 08:18 Calcium 9.2 mg/dl (8.6-10.4) 10/02/17 08:18 Phosphorus 4.0 mg/dL (2.5-4.5) 10/01/17 09:40 Magnesium 2.1 mg/dL (1.6-2.3) 10/01/17 09:40 Total Bilirubin 0.7 mg/dL (0.2-1.3) 10/02/17 08:18 AST 20 U/L (17-59) 10/02/17 08:18 ALT 22 U/L (21-72) 10/02/17 08:18 Alkaline Phosphatase 79 U/L (38-126) 10/02/17 08:18 Total Creatine Kinase 37 U/L (55-170) L 10/02/17 08:18 CK-MB (Mass) 0.86 ng/mL (0.0-3.38) 10/02/17 08:18 Troponin I 0.9030 ng/mL (0.00-0.120) H* 10/02/17 08:18 NT-Pro-B Natriuret Pep 12963 pg/mL (0-900) H 10/01/17 01:50 Total Protein 6.4 g/dL (6.3-8.3) 10/02/17 08:18 Albumin 3.6 g/dL (3.5-5.0) 10/02/17 08:18 Globulin 2.9 gm/dL (2.2-3.9) 10/02/17 08:18 Albumin/Globulin Ratio 1.2 (1.0-2.1) 10/02/17 08:18 Free T4 1.18 ng/dL (0.78-2.19) 10/02/17 08:18 TSH 3rd Generation 1.41 mIU/L (0.46-4.68) 10/02/17 08:18 Urine Color Yellow (YELLOW) 10/01/17 17:45 Urine Clarity Clear (Clear) 10/01/17 17:45 Urine pH 8.0 (5.0-8.0) 10/01/17 17:45 Ur Specific [place] 1.015 (1.003-1.030) 10/01/17 17:45 Urine Protein 2+ mg/dL (NEGATIVE) H 10/01/17 17:45 Urine Glucose (UA) Normal mg/dL (Normal) 10/01/17 17:45 Urine Ketones Negative mg/dL (NEGATIVE) 10/01/17 17:45 Urine Blood Negative (NEGATIVE) 10/01/17 17:45 Urine Nitrate Negative (NEGATIVE) 10/01/17 17:45 Urine Bilirubin Negative (NEGATIVE) 10/01/17 17:45 Urine Urobilinogen Normal mg/dL (0.2-1.0) 10/01/17 17:45 Ur Leukocyte Esterase Neg Maycol/uL (Negative) 10/01/17 17:45 Urine WBC (Auto) < 1 /hpf (0-5) 10/01/17 17:45 Urine RBC (Auto) 2 /hpf (0-3) 10/01/17 17:45 Attending/Attestation - Attestation I have personally seen and examined this patient.: Yes I have fully participated in the care of the patient.: Yes I have reviewed all pertinent clinical information, including history, physical exam and plan: Yes Notes (Text): 10/02/17 18:46 Medical attending: Patient was seen and examined by me, agrees the above note by registered medical transcriptionist. He reported that he is feeling fine overnight, he again reiterated that he wanted to go home He did not have any palpitations overnight. He denied chest pain, denied shortness of breath. His telemetry readings showed a heart rate in the 50s and 60s and the PO cardizem was held overnight. There were borderine positive troponins, probably from demand ischemia. He needs to continnue with the Eliquis as well as statin medication. The patient is well aware that he needs to follow-up with his manager recruitment. Per the cardiology note the plan is for stress test to be done, and following this the patient will probably need another ablation to be done to see if he can prevent these episodes these episodes of SVT/atrial flutter. thank you Tramaine Medina
[2017-10-02 08:49] LABS: ALB/GLOB RATIO 1.2 (1.0-2.1); ALBUMIN 3.6 g/dL (3.5-5.0); CALCIUM 9.2 mg/dl (8.6-10.4)
[2017-10-02 09:02] LABS: CK-MB 0.86 ng/mL (0.0-3.38); TROPONIN I 0.903 ng/mL (0.00-0.120)
[2017-10-02 09:11] LABS: FREE T4 1.18 ng/dL (0.78-2.19)
[2017-10-02] MEDS: Pantoprazole 40 mg EC Tab PO SCH (10:27)
[2017-10-02 10:32] VITALS: BP 163/52
[2017-10-02] MEDS: Potassium Chloride 20 mEq ER Tab PO SCH (12:01)
--- NOTE | 2017-10-02 12:06 | CP.PCM.PN ---
Subjective - Date & Time of Evaluation Date of Evaluation: 10/02/17 Time of Evaluation: 12:03 - Subjective Subjective: Pt feels Well. HR was too slow to allow cardezem. TNI trended downwards Objective - Vital Signs/Intake and Output Vital Signs (last 24 hours): Temp Pulse Resp BP Pulse Ox 97.5 F L 72 20 163/52 H 96 10/02/17 07:57 10/02/17 07:57 10/02/17 07:57 10/02/17 10:27 10/02/17 07:57 Intake and Output: 10/02/17 10/02/17 06:59 18:59 Intake Total 100 Balance 100 - Medications Medications: Current Medications Apixaban (Eliquis) 5 mg PO BID [facility] Last Admin: 10/02/17 10:35 Dose: Not Given Aspirin (Ecotrin) 81 mg PO DAILY [facility] Last Admin: 10/02/17 10:37 Dose: 81 mg Diltiazem HCl (Cardizem) 30 mg PO TID [facility] Last Admin: 10/02/17 12:01 Dose: Not Given Losartan Potassium (Cozaar) 50 mg PO DAILY [facility] Last Admin: 10/02/17 10:27 Dose: 50 mg Metoprolol Tartrate (Lopressor) 25 mg PO BID [facility] Last Admin: 10/02/17 10:27 Dose: 25 mg Pantoprazole Sodium (Protonix Ec Tab) 40 mg PO DAILY [facility] Last Admin: 10/02/17 10:27 Dose: 40 mg Potassium Chloride (K-Dur 20 Meq Er Tab) 20 meq PO BRK [facility] Last Admin: 10/02/17 12:01 Dose: Not Given Rosuvastatin Calcium (Crestor) 5 mg PO HS [facility] Last Admin: 10/01/17 21:23 Dose: 5 mg Sevelamer Carbonate (Renvela) 800 mg PO TIDCC [facility] Last Admin: 10/02/17 08:51 Dose: 800 mg - Labs Labs: 10/02/17 08:18 10/02/17 08:18 PT 12.6 SECONDS (9.7-12.2) H 10/01/17 01:50 INR 1.1 10/01/17 01:50 - Constitutional Appears: Well - Head Exam Head Exam: NORMAL INSPECTION - Eye Exam Eye Exam: EOMI - ENT Exam ENT Exam: Mucous Membranes Moist - Neck Exam Neck Exam: Full ROM - Respiratory Exam Respiratory Exam: Clear to Ausculation Bilateral, NORMAL BREATHING PATTERN - Cardiovascular Exam Cardiovascular Exam: REGULAR RHYTHM - GI/Abdominal Exam GI & Abdominal Exam: Normal Bowel Sounds - Exam External exam: NORMAL EXTERNAL EXAM - Extremities Exam Extremities Exam: Full ROM - Back Exam Back Exam: NORMAL INSPECTION - Neurological Exam Neurological Exam: Alert, Awake, CN II-XII Intact - Skin Skin Exam: Normal Color Assessment and Plan - Assessment and Plan (Free Text) Assessment: 1. S/P svt. likely a flutter: pt will be referred for repeat ablation after stress test. 2. Small non stemi as a result of demand ischemia from rapid svt. A nuclear stres test is planned. asa. 3. Could not tolerate addition of ca channel aylin due to [id number].
--- NOTE | 2017-10-03 08:07 | CON ---
DATE: 10/01/2017 ATTENDING PHYSICIAN: Stephan Trivedi MD HISTORY OF PRESENT ILLNESS: Mr. Jose is an 82-year-old white male who is being seen for management of dialysis-dependant renal failure. Mr. Jose has a history of hypertension, end-stage renal disease on dialysis for years. Last treatment was 09/30/2017. Last evening, he developed palpitations and felt his heart was racing. He was brought to the emergency room, where he was found to have rapid SVT, was given Cardizem with breaking of the arrhythmia. He subsequently became bradycardic and was admitted. LABORATORY DATA: His white count was 6500, hemoglobin 12, hematocrit 34.8. Sodium 136, potassium 3.2, repeated 3.6, chloride 88, CO2 of 35, BUN 21, creatinine 4.9, calcium 9.2, total bilirubin 0.6. AST of 24, ALT of 28, alkaline phosphatase of 153, troponin was 0.9560, repeated 0.6230, total protein 7.3, albumin 4.1, globulin 3.2. Chest x-ray showed prominent cardiac silhouette, blunting of the left costophrenic angle, and no evidence of new infiltrate or consolidation in the lungs. PAST MEDICAL HISTORY: Please see the above. Coronary artery disease, atrial fib, coronary bypass surgery, coronary stent, prostatectomy, valve replacement in 2016. FAMILY HISTORY: Positive for coronary artery disease and hypertension. SOCIAL HISTORY: Negative for alcohol or drug abuse. He has never smoked. REVIEW OF SYSTEMS: He denied orthostatic symptoms. He denied chest pain, cough, or hemoptysis. There was no abdominal pain, nausea, vomiting, or diarrhea. He continues to make urine with no symptomatology or gross blood. PHYSICAL EXAMINATION: GENERAL: He was awake and alert, in no acute distress. VITAL SIGNS: His blood pressure was 133/54. His pulse was 63. His temperature was 97.6. NECK: There was no jugular venous distention at 60 degrees. LUNGS: Clear. HEART: Rhythm was regular. ABDOMEN: Soft and nontender. EXTREMITIES: There was no CVA tenderness or presacral edema. He moves all his extremities. IMPRESSION: End-stage renal disease, dialysis dependant, hypertensive nephrosclerosis, coronary artery disease post coronary bypass surgery, percutaneous transluminal coronary angioplasty and stent, paroxysmal supraventricular tachycardia. We will follow cardiology recommendations. We will schedule dialysis for 10/03/2017. Thank you for your kind referral. We will continue to follow with you. Austen Perez MD
--- NOTE | 2017-10-03 13:24 | CARD ---
APPROVED REPORT EKG Measurement Heart [id number] [place] 224P80 [id number] <Conclusion> Sinus bradycardia with 1st degree AV block Abnormal QRS-T angle, consider primary T wave abnormality Abnormal ECG
--- NOTE | 2017-10-03 13:25 | CARD ---
APPROVED REPORT EKG Measurement Heart [id number] [place] 218P94 [id number] <Conclusion> Sinus bradycardia with 1st degree AV block Nonspecific ST and T wave abnormality Abnormal ECG
--- NOTE | 2017-10-03 13:26 | CARD ---
APPROVED REPORT EKG Measurement Heart [id number] [place] 136P20 [id number] <Conclusion> Sinus tachycardia Left ventricular hypertrophy with repolarization abnormality Abnormal ECG
--- NOTE | 2017-10-03 13:26 | CARD ---
APPROVED REPORT EKG Measurement Heart [id number] [place] 206P31 [id number] <Conclusion> Sinus bradycardia Nonspecific ST and T wave abnormality Abnormal ECG
--- NOTE | 2017-10-03 13:26 | CARD ---
APPROVED REPORT EKG Measurement Heart [id number] [place] 220P55 [id number] <Conclusion> Sinus bradycardia with 1st degree AV block Left ventricular hypertrophy with repolarization abnormality Abnormal ECG
--- NOTE | 2017-10-03 13:26 | CARD ---
APPROVED REPORT EKG Measurement Heart [id number] <Conclusion> Supraventricular tachycardia Left ventricular hypertrophy with repolarization abnormality Marked ST abnormality, possible anterior subendocardial injury Abnormal ECG
== END 2017-10-02 14:01 | disposition home or self-care (01) | DRG 280 ==
LOC: C.ER 01:09 → C.9E 02:06 → C.5S 07:34
PROVIDERS: ADMIT Internal Medicine; ATTEND Internal Medicine
DX: I47.1 Supraventricular tachycardia (principal); I21.A1 Myocardial infarction type 2; N18.6 End stage renal disease; E11.22 Type 2 diabetes mellitus with diabetic chronic kidney disease; I12.0 Hypertensive chronic kidney disease with stage 5 chronic kidney disease or end stage renal disease; I48.91 Unspecified atrial fibrillation; I48.92 Unspecified atrial flutter; Z99.2 Dependence on renal dialysis; E78.5 Hyperlipidemia, unspecified; Z95.1 Presence of aortocoronary bypass graft; I25.10 Atherosclerotic heart disease of native coronary artery without angina pectoris; Z95.2 Presence of prosthetic heart valve

== ENCOUNTER 2017-10-04 00:26 | Inpatient (IN) | payer MEDICARE ==
[2017-10-04 00:27] VITALS: BMI 23.1
[2017-10-04] MEDS ORDERED: Aspirin 325 mg EC Tablets PO STA (00:46)
--- NOTE | 2017-10-04 00:46 | C.PDOC ---
History Of Present Illness 82 year old male presents to the ER with a complaint of a rapid heart rate and mild chest discomfort. He was seen 2 days ago with similar symptoms, at the time he initially did not respond to adenosine but responded to cardizem. Patient is a Monday, , Monday dialysis patient and notes he was dialyzed this past Monday. Denies fever, chills, nausea, or vomiting. Time Seen by Provider: 10/04/17 00:45 Chief Complaint (Nursing): Chest Pain History Per: Patient History/Exam Limitations: no limitations Onset/Duration Of Symptoms: Hrs Current Symptoms Are (Timing): Still Present Associated Symptoms: Chest Pain. denies: Other (Nausea, vomiting, fever, chills ) Quality Of Symptoms: Rapid Heart Rate Severity: Moderate Pain Scale Rating Of: 4 Exacerbating Factor(s): Pos: None Recent travel outside of the [place]: No Additional History Per: Patient Past Medical History Reviewed: Historical Data, Nursing Documentation, Vital Signs Vital Signs: Last Vital Signs Temp 97.9 F 10/04/17 01:06 Pulse 61 10/04/17 01:06 Resp 14 10/04/17 01:06 BP 104/65 10/04/17 01:06 Pulse Ox 97 10/04/17 01:29 - Medical History PMH: Atrial Fibrillation, HTN, Hypercholesterolemia, Hyperlipidemia, End Stage Renal Disease, Chronic Kidney Disease Surgical History: Appendectomy, CABG, Coronary Stent Family History: States: Unknown Family Hx - Social History Hx Alcohol Use: No Hx Substance Use: No - Immunization History Hx Tetanus Toxoid Vaccination: No Hx Influenza Vaccination: Yes Hx Pneumococcal Vaccination: Yes Review Of Systems Constitutional: Negative for: Fever, Chills Eyes: Negative for: Vision Change Cardiovascular: Positive for: Chest Pain, Palpitations Respiratory: Negative for: Cough, Shortness of Breath Gastrointestinal: Negative for: Nausea, Vomiting Musculoskeletal: Negative for: Back Pain Skin: Negative for: Rash Neurological: Negative for: Weakness, Numbness Psych: Negative for: Anxiety Physical Exam - Physical Exam Appears: In Acute Distress Skin: Warm, Dry Head: Normacephalic Eye(s): bilateral: Normal Inspection Oral Mucosa: Moist Neck: Trachea Midline, Supple Chest: Symmetrical, No Tenderness Cardiovascular: Rhythm Irregular (tachy) Respiratory: No Rales, No Rhonchi, No Wheezing Gastrointestinal/Abdominal: Soft, No Tenderness Back: No CVA Tenderness Extremity: Normal ROM, Other (left hd shunt with good thrill and bruit) Extremity: Bilateral: Atraumatic, Normal Color And Temperature, Normal ROM Pulses: Left Dorsalis Pedis: Normal, Right Dorsalis Pedis: Normal Neurological/Psych: Oriented x3, Normal Speech, Normal Cognition, Other (No focal deficits) Gait: Steady ED Course And Treatment - Laboratory Results Result Diagrams: 10/04/17 00:53 10/04/17 00:53 O2 Sat by Pulse Oximetry: 97 (Room air) Pulse Ox Interpretation: Normal Progress Note: Blood work, EKG, and CXR ordered. IV fluids, cardizem, and aspirin administered. EKG texted to Dr. Galvan at 12:38, who agrees he does not meet code heart criteria. Critical Care Time - Critical Care Note Total Time (in mins): 30 Documented critical care: time excludes all time spent performing seperately billable procedures. Disposition Discussed With DrJoel: Yong Ward Comment: accepted the pt on his service and took over the care at 1:31 AM Doctor Will See Patient In The: ED Counseled Patient/Family Regarding: Studies Performed, Diagnosis - Disposition Disposition: HOSPITALIZED Disposition Time: 00:46 Condition: GUARDED Forms: [facility] ([place]) - POA Present On Arrival: None - Clinical Impression Clinical Impression: Chest pain, ESRD (end stage renal disease) on dialysis, SVT (supraventricular tachycardia) - Scribe Statement The provider has reviewed the documentation as recorded by the Scribedelmira Covington All medical record entries made by the Scribe were at my direction and personally dictated by me. I have reviewed the chart and agree that the record accurately reflects my personal performance of the history, physical exam, medical decision making, and the department course for this patient. I have also personally directed, reviewed, and agree with the discharge instructions and disposition. Decision To Admit - Pt Status Changed To: Hospital Disposition Of: Inpatient - Admit Certification Admit to Inpatient:: After my assessment, the patient will require hospitalization for at least two midnights. This is because of the severity of symptoms shown, intensity of services needed, and/or the medical risk in this patient being treated as an outpatient. - InPatient: Physician Admission Certification: I certify that this patient requires 2 or more midnights of care for the following reason:: After my assessment, the patient will require hospitalization for at least two midnights. This is because of the severity of symptoms shown, intensity of services needed, and/or the medical risk in this patient being treated as an outpatient. - . Bed Request Type: Telemetry Admitting Physician: Yong Ward Patient Diagnosis: Chest pain, ESRD (end stage renal disease) on dialysis, SVT (supraventricular tachycardia)
[2017-10-04 00:58] LABS: BASO # 0.1 K/uL (0.0-0.2); BASO % 1.3 % (0.0-2.0); EOS # 0.3 K/uL (0.0-0.7); EOS % 3.8 % (0.0-4.0); LYMPH % 22.3 % (20.0-40.0); MEAN CELL VOLUME 101.9 fL (80.0-94.0); MEAN CORPUSCULAR HEMOGLOBIN 34.6 pg (27.0-31.0); MEAN PLATELET VOLUME 9.2 fL (7.2-11.7); MONO # 1.2 K/uL (0.0-0.8); MONO % 13.1 % (0.0-10.0); NEUT # 5.3 K/uL (1.8-7.0); NEUT % 59.5 % (50.0-75.0); RBC 3.47 Mil/uL (4.40-5.90); RED CELL DISTRIBUTION WIDTH 14.8 % (11.5-14.5)
[2017-10-04 01:04] LABS: INR 1.1; PROTHROMBIN TIME 12.8 SECONDS (9.7-12.2)
[2017-10-04 01:09] LABS: ALB/GLOB RATIO 1.3 (1.0-2.1); ALBUMIN 4.3 g/dL (3.5-5.0); CALCIUM 8.8 mg/dl (8.6-10.4)
[2017-10-04 01:22] LABS: TROPONIN I 0.322 ng/mL (0.00-0.120)
--- NOTE | 2017-10-04 03:07 | CP.PCM.HP ---
<Armando William - Last Filed: 10/04/17 04:17> History of Present Illness - History of Present Illness History of Present Illness: PGY-1 H&P for Dr. Ward CC: Palpitations This is an 82 year old male with PMHx CAD, AFib, HTN, ESRD on HD (T, Th, S), HLD who presents complaining of palpatations. This began similar to the most recent episode. Patient was preparing to go to sleep when he felt his heart racing at around 11PM. Patient measured his vitals at home and he was "195/90" and his pulse around "122." Patient denies chest pain but admitted to mild diaphoresis minutes after his episode began. Patient also denies dyspnea. He states that he just felt unwell. This sensation is relieved with sitting in an upright posture as opposed to lying down. Patient states that he took all of his medications yesterday and also had his regularly scheduled dialysis session. There was concern of ST segment elevations while patient in the ED. The ED spoke with the [facility] Heart retrofit installer, but per the specialist, the patient was not a candidate for PCI at this time. PMHx: AFib, CAD, HLD, HTN, ESRD on HD (TThS) PSHx: Appendectomy at age 19, Prostectomy 2001, Hernia repair 2003, Coronary Stent 2009, Thoracentesis 2015, CABG 2015, Valve replacement 2015, ablations in the past Allergies: Morphine FamHx: Father had GA, DM2; Mother had GA, DM2 Social: Never smoked; Non-drinker; No illicit drugs; Lives with at home PMD: Dr Bennett Dirt Shoveler: Dr Kirk Boat Diesel Motor Mechanic: Dr Higuera Home Medications: Crestor 5mg PO daily, Cozaar 50mg PO daily, Eliquis 5mg PO BID , Renvela 800mg PO TID, Metoprolol Tartrate 25mg PO BID Present on Admission - Present on Admission Any Indicators Present on Admission: No Review of Systems - Constitutional Constitutional: absent: Chills, Fever - EENT Eyes: absent: Change in Vision Ears: absent: Decreased Hearing Nose/Mouth/Throat: absent: Nasal Congestion - Cardiovascular Cardiovascular: Diaphoresis (resolved at home), Palpitations, Rapid Heart Rate. absent: Chest Pain - Respiratory Respiratory: absent: Cough, Dyspnea - Gastrointestinal Gastrointestinal: absent: Abdominal Pain, Constipation, Diarrhea, Nausea, Vomiting - Genitourinary Genitourinary: absent: Flank Pain - Musculoskeletal Musculoskeletal: absent: Back Pain - Integumentary Integumentary: absent: Rash - Neurological Neurological: absent: Dizziness, Headaches, Weakness - Psychiatric Psychiatric: absent: Anxiety - Endocrine Endocrine: Palpitations. absent: Fatigue Past Patient History - Infectious Disease Hx of Infectious Diseases: None - Past Medical History & Family History Past Medical History?: Yes - Past Social History Smoking Status: Never Smoked - CARDIAC Hx Atrial Fibrillation: Yes Hx Hypercholesterolemia: Yes Hx Hypertension: Yes - PULMONARY Hx Respiratory Disorders: No Other/Comment: left pleural effusion - NEUROLOGICAL Hx Neurological Disorder: No - HEENT Hx HEENT Problems: No Hx Cataracts: Yes - RENAL Hx Chronic Kidney Disease: Yes - ENDOCRINE/METABOLIC Hx Endocrine Disorders: No - HEMATOLOGICAL/ONCOLOGICAL Hx Blood Disorders: No - INTEGUMENTARY Hx Dermatological Problems: No - MUSCULOSKELETAL/RHEUMATOLOGICAL Hx Falls: No - GASTROINTESTINAL Hx Gastrointestinal Disorders: Yes Hx Constipation: Yes - GENITOURINARY/GYNECOLOGICAL Hx Genitourinary Disorders: No Hx Prostate Problems: Yes (removed at 67) - PSYCHIATRIC Hx Substance Use: No - SURGICAL HISTORY Hx Appendectomy: Yes Hx Coronary Artery Bypass Graft: Yes Hx Coronary Stent: Yes - ANESTHESIA Hx Anesthesia: Yes Hx Anesthesia Reactions: No Hx Malignant Hyperthermia: No Meds Allergies/Adverse Reactions: Allergies Allergy/AdvReac Type Severity Reaction Status Date / Time morphine Allergy VOMITING Verified 10/04/17 00:45 Physical Exam - Constitutional Appears: Well, No Acute Distress - Head Exam Head Exam: ATRAUMATIC, NORMOCEPHALIC - Eye Exam Eye Exam: EOMI, PERRL - ENT Exam ENT Exam: Mucous Membranes Moist - Respiratory Exam Respiratory Exam: Clear to Auscultation Bilateral, NORMAL BREATHING PATTERN. absent: Rales, Rhonchi, Wheezes - Cardiovascular Exam Cardiovascular Exam: Irregular Rhythm, +S1, +S2, Systolic Murmur Additional comments: mid line scar on chest wall from prior surgery - GI/Abdominal Exam GI & Abdominal Exam: Normal Bowel Sounds, Soft. absent: Distended, Tenderness - Extremities Exam Extremities exam: Positive for: pedal pulses present. Negative for: pedal edema , tenderness - Neurological Exam Neurological exam: Alert, CN II-XII Intact, Oriented x3 - Psychiatric Exam Psychiatric exam: Normal Affect, Normal Mood - Skin Skin Exam: Dry, Intact, Normal Color, Warm Additional comments: midline scar on chest wall from prior surgery. AV fistula on left arm Results - Vital Signs Recent Vital Signs: Last Vital Signs Temp 97.9 F 10/04/17 01:06 Pulse 59 L 10/04/17 02:54 Resp 15 10/04/17 02:54 BP 114/48 L 10/04/17 02:54 Pulse Ox 96 10/04/17 02:54 - Labs Result Diagrams: 10/04/17 00:53 10/04/17 00:53 Labs: Laboratory Results - last 24 hr 10/04/17 10/04/17 10/04/17 00:53 00:53 00:53 WBC 9.0 RBC 3.47 L Hgb 12.0 Hct 35.4 MCV 101.9 H MCH 34.6 H MCHC 34.0 RDW 14.8 H Plt Count 192 MPV 9.2 Neut % (Auto) 59.5 Lymph % (Auto) 22.3 [place] % (Auto) 13.1 H Eos % (Auto) 3.8 Baso % (Auto) 1.3 Neut # 5.3 Lymph # 2.0 [place] # 1.2 H Eos # 0.3 Baso # 0.1 PT 12.8 H INR 1.1 APTT 32 Sodium 137 Potassium 3.6 Chloride 91 L Carbon Dioxide 33 H Anion Gap 16 BUN 22 H Creatinine 5.2 H Est GFR ( Amer) 13 Est GFR (Non-Af Amer) 11 Random Glucose 131 H Calcium 8.8 Total Bilirubin 0.7 AST 26 ALT 30 Alkaline Phosphatase 136 H D Troponin I 0.3220 H* NT-Pro-B Natriuret Pep 67235 H Total Protein 7.6 Albumin 4.3 Globulin 3.3 Albumin/Globulin Ratio 1.3 Assessment & Plan - Assessment and Plan (Free Text) Plan: SVT (supraventricular tachycardia) Received Cardizem 25 mg IV in ED and there was a Cardizem drip at 5mg/hr ordered but the patient did not receive it because he responded to the initial Cardizem IV push. Rate was in the 70s on the athletic monitor at the time of patient encounter. Patient not candidate for Code Heart per Dr. Galvan Cardiology consult, Dr. Kirk. Help appreciated. 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 Higuera consulted, help appreciated HD on T, Th, S Restarted home med Renvela 800mg PO TID CAD (coronary artery disease) Trop elevated likely due to ESRD Restarted home Losartan 50mg PO daily Restarted home Lopressor 25 mg PO BID Restarted home Aspirin 81 mg PO daily HLD (hyperlipidemia) Restarted home Crestor 5mg PO HS HTN (hypertension) Restarted home Losartan 50mg PO daily Restarted home Lopressor 25 mg PO BID Prophylactic measure Eliquis 5mg PO BID Protonix 40 mg PO daily Renal dialysis Diet Case DW Dr. Sylvia William PGY-1 <Yong Ward - Last Filed: 10/04/17 06:21> Results - Vital Signs Recent Vital Signs: Last Vital Signs Temp 97.9 F 10/04/17 01:06 Pulse 60 10/04/17 05:15 Resp 16 10/04/17 05:15 BP 123/85 10/04/17 05:15 Pulse Ox 97 10/04/17 05:15 - Labs Result Diagrams: 10/04/17 00:53 10/04/17 00:53 Labs: Laboratory Results - last 24 hr 10/04/17 10/04/17 10/04/17 00:53 00:53 00:53 WBC 9.0 RBC 3.47 L Hgb 12.0 Hct 35.4 MCV 101.9 H MCH 34.6 H MCHC 34.0 RDW 14.8 H Plt Count 192 MPV 9.2 Neut % (Auto) 59.5 Lymph % (Auto) 22.3 [place] % (Auto) 13.1 H Eos % (Auto) 3.8 Baso % (Auto) 1.3 Neut # 5.3 Lymph # 2.0 [place] # 1.2 H Eos # 0.3 Baso # 0.1 PT 12.8 H INR 1.1 APTT 32 Sodium 137 Potassium 3.6 Chloride 91 L Carbon Dioxide 33 H Anion Gap 16 BUN 22 H Creatinine 5.2 H Est GFR ( Amer) 13 Est GFR (Non-Af Amer) 11 Random Glucose 131 H Calcium 8.8 Total Bilirubin 0.7 AST 26 ALT 30 Alkaline Phosphatase 136 H D Troponin I 0.3220 H* NT-Pro-B Natriuret Pep 41584 H Total Protein 7.6 Albumin 4.3 Globulin 3.3 Albumin/Globulin Ratio 1.3 Assessment & Plan - Date & Time Date: 10/04/17 (I have seen and examined the patient. I agree with the findings and plan of care as documented by Dr. William. Patient with SVTs in ED. Given Cardizem with adequate response. Consult to patient's cardio. Also with history of atrial fib. Continue home meds. Consult nephro due to history of ESRD. Monitor for acute changes.) Time: 06:19 Attending/Attestation - Attestation I have personally seen and examined this patient.: Yes I have fully participated in the care of the patient.: Yes I have reviewed all pertinent clinical information: Yes
--- NOTE | 2017-10-04 08:19 | CP.PCM.CON ---
History of Present Illness - History of Present Illness History of Present Illness: 82-year-old gentleman with extensive cardiac history followed by Dr. Surendra Cuellar came in last night with an episode of palpitations c heart was activated secondary to ischemic changes in the anterior leads. Past Patient History - Infectious Disease Hx of Infectious Diseases: None - Past Medical History & Family History Past Medical History?: Yes - Past Social History Smoking Status: Never Smoked - CARDIAC Hx Atrial Fibrillation: Yes Hx Hypercholesterolemia: Yes Hx Hypertension: Yes - PULMONARY Hx Respiratory Disorders: No Other/Comment: left pleural effusion - NEUROLOGICAL Hx Neurological Disorder: No - HEENT Hx HEENT Problems: No Hx Cataracts: Yes - RENAL Hx Chronic Kidney Disease: Yes - ENDOCRINE/METABOLIC Hx Endocrine Disorders: No - HEMATOLOGICAL/ONCOLOGICAL Hx Blood Disorders: No - INTEGUMENTARY Hx Dermatological Problems: No - MUSCULOSKELETAL/RHEUMATOLOGICAL Hx Falls: No - GASTROINTESTINAL Hx Gastrointestinal Disorders: Yes Hx Constipation: Yes - GENITOURINARY/GYNECOLOGICAL Hx Genitourinary Disorders: No Hx Prostate Problems: Yes (removed at 67) - PSYCHIATRIC Hx Substance Use: No - SURGICAL HISTORY Hx Appendectomy: Yes Hx Coronary Artery Bypass Graft: Yes Hx Coronary Stent: Yes - ANESTHESIA Hx Anesthesia: Yes Hx Anesthesia Reactions: No Hx Malignant Hyperthermia: No Meds Allergies/Adverse Reactions: Allergies Allergy/AdvReac Type Severity Reaction Status Date / Time morphine Allergy VOMITING Verified 10/04/17 00:45 - Medications Medications: Current Medications Apixaban (Eliquis) 2.5 mg PO BID [facility] Aspirin (Ecotrin) 81 mg PO DAILY [facility] Diltiazem HCl (Cardizem) 30 mg PO BID [facility] Losartan Potassium (Cozaar) 50 mg PO DAILY [facility] Metoprolol Tartrate (Lopressor) 25 mg PO BID [facility] Pantoprazole Sodium (Protonix Ec Tab) 40 mg PO DAILY [facility] Rosuvastatin Calcium (Crestor) 5 mg PO HS [facility] Sevelamer Carbonate (Renvela) 800 mg PO TID [facility] Results - Vital Signs Recent Vital Signs: Last Vital Signs Temp 97.9 F 10/04/17 01:06 Pulse 60 10/04/17 06:57 Resp 13 10/04/17 06:57 BP 110/46 L 10/04/17 06:57 Pulse Ox 100 10/04/17 06:57 - Labs Result Diagrams: 10/04/17 00:53 10/04/17 00:53 Labs: Laboratory Results - last 24 hr 10/04/17 10/04/17 10/04/17 00:53 00:53 00:53 WBC 9.0 RBC 3.47 L Hgb 12.0 Hct 35.4 MCV 101.9 H MCH 34.6 H MCHC 34.0 RDW 14.8 H Plt Count 192 MPV 9.2 Neut % (Auto) 59.5 Lymph % (Auto) 22.3 [place] % (Auto) 13.1 H Eos % (Auto) 3.8 Baso % (Auto) 1.3 Neut # 5.3 Lymph # 2.0 [place] # 1.2 H Eos # 0.3 Baso # 0.1 PT 12.8 H INR 1.1 APTT 32 Sodium 137 Potassium 3.6 Chloride 91 L Carbon Dioxide 33 H Anion Gap 16 BUN 22 H Creatinine 5.2 H Est GFR ( Amer) 13 Est GFR (Non-Af Amer) 11 Random Glucose 131 H Calcium 8.8 Total Bilirubin 0.7 AST 26 ALT 30 Alkaline Phosphatase 136 H D Troponin I 0.3220 H* NT-Pro-B Natriuret Pep 10455 H Total Protein 7.6 Albumin 4.3 Globulin 3.3 Albumin/Globulin Ratio 1.3 Assessment & Plan (1) SVT (supraventricular tachycardia) Assessment and Plan: EKG and clinical presentation not c/w STEMI pt to be followed by dr murillo for his cardiac care Status: Acute
[2017-10-04 09:34] LABS: CK-MB 3.26 ng/mL (0.0-3.38)
[2017-10-04 09:39] LABS: TROPONIN I 1.3 ng/mL (0.00-0.120)
[2017-10-04] MEDS: Pantoprazole 40 mg EC Tab PO SCH (10:31)
--- NOTE | 2017-10-04 11:43 | RAD ---
PROCEDURE: CHEST RADIOGRAPH, 1 VIEW HISTORY: chest pain COMPARISON: None available. FINDINGS: LUNGS: Clear. PLEURA: No pneumothorax or pleural fluid seen. CARDIOVASCULAR: Mild cardiomegaly. Status post CABG. OSSEOUS STRUCTURES: No significant abnormalities. VISUALIZED UPPER ABDOMEN: Normal. OTHER FINDINGS: None. IMPRESSION: No active disease.
--- NOTE | 2017-10-04 13:42 | CP.PCM.CON ---
History of Present Illness - History of Present Illness History of Present Illness: THe pt is an 82 year old man with CKD, on dialysis, with a long PMH. Pt had CABG avr in 2016, after previously having stents. He had ablation in 2011 twice for svt. Pt had a cough recently, and repeat outpatient echo demonstrated normal LV EF and normal functioning bio aortic valve. A chest ct was also negative. Pt had his dialysis volume increased, and cough resolved, suggesting he had a degree of diastolic dysfunction. The pt was recently admitted here for rapid afib, with st segment depression. TNI max wa .9. Pt had no angina. He did not wish to stay in the hospital for eval and went home, with the plna for a nuclear stress and cath if needed, followed by ablation. THe patient has returned now in 2 days with a similar problem, converted to NSR with iv cardezem. TNI is higher at 1.3. ST depression was again noted. Review of Systems - Review of Systems All systems: reviewed and no additional remarkable complaints except (as abov.e) Past Patient History - Infectious Disease Hx of Infectious Diseases: None - Past Medical History & Family History Past Medical History?: Yes - Past Social History Smoking Status: Never Smoked - CARDIAC Hx Atrial Fibrillation: Yes Hx Hypercholesterolemia: Yes Hx Hypertension: Yes - PULMONARY Hx Respiratory Disorders: No Other/Comment: left pleural effusion - NEUROLOGICAL Hx Neurological Disorder: No - HEENT Hx HEENT Problems: No Hx Cataracts: Yes - RENAL Date of Last Dialysis Treatment: 10/03/17 - ENDOCRINE/METABOLIC Hx Endocrine Disorders: No - HEMATOLOGICAL/ONCOLOGICAL Hx Blood Disorders: No - INTEGUMENTARY Hx Dermatological Problems: No - MUSCULOSKELETAL/RHEUMATOLOGICAL Hx Falls: No - GASTROINTESTINAL Hx Gastrointestinal Disorders: Yes Hx Constipation: Yes - GENITOURINARY/GYNECOLOGICAL Hx Genitourinary Disorders: No Hx Prostate Problems: Yes (removed at 67) - PSYCHIATRIC Hx Substance Use: No - SURGICAL HISTORY Hx Appendectomy: Yes Hx Coronary Artery Bypass Graft: Yes Hx Coronary Stent: Yes - ANESTHESIA Hx Anesthesia: Yes Hx Anesthesia Reactions: No Hx Malignant Hyperthermia: No Meds Allergies/Adverse Reactions: Allergies Allergy/AdvReac Type Severity Reaction Status Date / Time morphine Allergy VOMITING Verified 10/04/17 00:45 - Medications Medications: Current Medications Apixaban (Eliquis) 2.5 mg PO BID [facility] Last Admin: 10/04/17 10:30 Dose: 2.5 mg Aspirin (Ecotrin) 81 mg PO DAILY [facility] Last Admin: 10/04/17 10:30 Dose: 81 mg Diltiazem HCl (Cardizem) 30 mg PO BID [facility] Last Admin: 10/04/17 10:30 Dose: 30 mg Losartan Potassium (Cozaar) 50 mg PO DAILY [facility] Last Admin: 10/04/17 10:30 Dose: 50 mg Metoprolol Tartrate (Lopressor) 25 mg PO BID [facility] Last Admin: 10/04/17 10:30 Dose: 25 mg Pantoprazole Sodium (Protonix Ec Tab) 40 mg PO DAILY [facility] Last Admin: 10/04/17 10:31 Dose: 40 mg Rosuvastatin Calcium (Crestor) 5 mg PO [facility] Sevelamer Carbonate (Renvela) 800 mg PO TID [facility] Last Admin: 10/04/17 10:31 Dose: 800 mg Physical Exam - Head Exam Head Exam: ATRAUMATIC - Eye Exam Eye Exam: EOMI - ENT Exam ENT Exam: Mucous Membranes Moist - Respiratory Exam Respiratory Exam: Accessory Muscle Use - Cardiovascular Exam Cardiovascular Exam: REGULAR RHYTHM - GI/Abdominal Exam GI & Abdominal Exam: Normal Bowel Sounds - Exam External exam: NORMAL EXTERNAL EXAM - Back Exam Back exam: NORMAL INSPECTION - Neurological Exam Neurological exam: Alert, Oriented x3 - Psychiatric Exam Psychiatric exam: Normal Mood - Skin Skin Exam: Dry Results - Vital Signs Recent Vital Signs: Last Vital Signs Temp 98 F 10/04/17 08:26 Pulse 79 10/04/17 13:00 Resp 18 10/04/17 13:00 BP 133/55 L 10/04/17 12:23 Pulse Ox 99 10/04/17 08:26 - Labs Result Diagrams: 10/04/17 00:53 10/04/17 00:53 Labs: Laboratory Results - last 24 hr 10/04/17 10/04/17 10/04/17 00:53 00:53 00:53 WBC 9.0 RBC 3.47 L Hgb 12.0 Hct 35.4 MCV 101.9 H MCH 34.6 H MCHC 34.0 RDW 14.8 H Plt Count 192 MPV 9.2 Neut % (Auto) 59.5 Lymph % (Auto) 22.3 [place] % (Auto) 13.1 H Eos % (Auto) 3.8 Baso % (Auto) 1.3 Neut # 5.3 Lymph # 2.0 [place] # 1.2 H Eos # 0.3 Baso # 0.1 PT 12.8 H INR 1.1 APTT 32 Sodium 137 Potassium 3.6 Chloride 91 L Carbon Dioxide 33 H Anion Gap 16 BUN 22 H Creatinine 5.2 H Est GFR ( Amer) 13 Est GFR (Non-Af Amer) 11 Random Glucose 131 H Calcium 8.8 Total Bilirubin 0.7 AST 26 ALT 30 Alkaline Phosphatase 136 H D Total Creatine Kinase CK-MB (Mass) Troponin I 0.3220 H* NT-Pro-B Natriuret Pep 43320 H Total Protein 7.6 Albumin 4.3 Globulin 3.3 Albumin/Globulin Ratio 1.3 TSH 3rd Generation 10/04/17 08:46 WBC RBC Hgb Hct MCV MCH MCHC RDW Plt Count MPV Neut % (Auto) Lymph % (Auto) [place] % (Auto) Eos % (Auto) Baso % (Auto) Neut # Lymph # [place] # Eos # Baso # PT INR APTT Sodium Potassium Chloride Carbon Dioxide Anion Gap BUN Creatinine Est GFR ( Amer) Est GFR (Non-Af Amer) Random Glucose Calcium Total Bilirubin AST ALT Alkaline Phosphatase Total Creatine Kinase 52 L CK-MB (Mass) 3.26 Troponin I 1.3000 H* NT-Pro-B Natriuret Pep Total Protein Albumin Globulin Albumin/Globulin Ratio TSH 3rd Generation 1.99 - EKG Data EKG Interpreted by: Myself EKG shows normal: Sinus rhythm (s elbert with non specific st changes) Assessment & Plan - Assessment and Plan (Free Text) Assessment: 1. 82 year old man with CAD, episodic atrial fib , s/p ablation, and non non stemi. Pt is advised to undergo c cath to asses for ischemic etiology of atrial fib. Once the need for revascularization is assessed, Dr Valdivia of EP has advised afib ablation. Pt will be transferred for this procedure.
--- NOTE | 2017-10-04 14:59 | CP.PCM.CON ---
History of Present Illness - History of Present Illness History of Present Illness: consult requested for management of ESRD 82 yo white male, known to me, history of ESRD, T, TH, Sat, CABG, afib, HTN, DL , in the hospital over the weekend for afib with RVR, and discharged with cardizem. Pt did not have an opportunity to fill the rx and now presents with same. Notes some chest tightness, noted to have equivocol EKG changes. Pt seen by cardiology and not deemed to be consistent with ischemic disease. Ablation planned for patient. He is comfortable at the present time. Also noted to be very hypertensive over last 24 hours. Review of Systems - Constitutional Constitutional: absent: Fever, Headache - EENT Eyes: absent: Blurred Vision, Pain Nose/Mouth/Throat: absent: Epistaxis, Nasal Congestion - Cardiovascular Cardiovascular: Chest Pain, Irregular Heart Rhythm - Respiratory Respiratory: absent: Cough, Dyspnea - Gastrointestinal Gastrointestinal: absent: Bloating, Change in Bowel Habits - Neurological Neurological: absent: Abnormal Speech, Confusion - Hematologic/Lymphatic Hematologic: absent: Easy Bleeding, Easy Bruising Past Patient History - Infectious Disease Hx of Infectious Diseases: None - Past Medical History & Family History Past Medical History?: Yes - Past Social History Smoking Status: Never Smoked - CARDIAC Hx Atrial Fibrillation: Yes Hx Hypercholesterolemia: Yes Hx Hypertension: Yes - PULMONARY Hx Respiratory Disorders: No Other/Comment: left pleural effusion - NEUROLOGICAL Hx Neurological Disorder: No - HEENT Hx HEENT Problems: No Hx Cataracts: Yes - RENAL Date of Last Dialysis Treatment: 10/03/17 - ENDOCRINE/METABOLIC Hx Endocrine Disorders: No - HEMATOLOGICAL/ONCOLOGICAL Hx Blood Disorders: No - INTEGUMENTARY Hx Dermatological Problems: No - MUSCULOSKELETAL/RHEUMATOLOGICAL Hx Falls: No - GASTROINTESTINAL Hx Gastrointestinal Disorders: Yes Hx Constipation: Yes - GENITOURINARY/GYNECOLOGICAL Hx Genitourinary Disorders: No Hx Prostate Problems: Yes (removed at 67) - PSYCHIATRIC Hx Substance Use: No - SURGICAL HISTORY Hx Appendectomy: Yes Hx Coronary Artery Bypass Graft: Yes Hx Coronary Stent: Yes - ANESTHESIA Hx Anesthesia: Yes Hx Anesthesia Reactions: No Hx Malignant Hyperthermia: No Meds Allergies/Adverse Reactions: Allergies Allergy/AdvReac Type Severity Reaction Status Date / Time morphine Allergy VOMITING Verified 10/04/17 00:45 - Medications Medications: Current Medications Aspirin (Ecotrin) 81 mg PO DAILY [facility] Last Admin: 10/04/17 10:30 Dose: 81 mg Diltiazem HCl (Cardizem) 30 mg PO BID [facility] Last Admin: 10/04/17 10:30 Dose: 30 mg Losartan Potassium (Cozaar) 50 mg PO DAILY [facility] Last Admin: 10/04/17 10:30 Dose: 50 mg Metoprolol Tartrate (Lopressor) 25 mg PO BID [facility] Last Admin: 10/04/17 10:30 Dose: 25 mg Pantoprazole Sodium (Protonix Ec Tab) 40 mg PO DAILY [facility] Last Admin: 10/04/17 10:31 Dose: 40 mg Rosuvastatin Calcium (Crestor) [address] [facility] Sevelamer Carbonate (Renvela) 800 mg PO TID [facility] Last Admin: 10/04/17 13:38 Dose: 800 mg Physical Exam - Constitutional Appears: Non-toxic, No Acute Distress, In Acute Distress - Head Exam Head Exam: ATRAUMATIC, NORMAL INSPECTION - Eye Exam Eye Exam: EOMI, Normal appearance - ENT Exam ENT Exam: Mucous Membranes Moist - Neck Exam Neck exam: Positive for: Full Rom. Negative for: Lymphadenopathy - Respiratory Exam Respiratory Exam: Clear to Auscultation Bilateral, NORMAL BREATHING PATTERN - Cardiovascular Exam Cardiovascular Exam: Irregular Rhythm. absent: Rubs Additional comments: sternal scar - GI/Abdominal Exam GI & Abdominal Exam: Distended, Soft - Extremities Exam Extremities exam: Negative for: pedal edema - Neurological Exam Neurological exam: Alert, Oriented x3 Results - Vital Signs Recent Vital Signs: Last Vital Signs Temp 98 F 10/04/17 08:26 Pulse 79 10/04/17 13:26 Resp 18 10/04/17 13:00 BP 133/55 L 10/04/17 12:23 Pulse Ox 99 10/04/17 08:26 - Labs Result Diagrams: 10/04/17 00:53 10/04/17 00:53 Labs: Laboratory Results - last 24 hr 10/04/17 10/04/17 10/04/17 00:53 00:53 00:53 WBC 9.0 RBC 3.47 L Hgb 12.0 Hct 35.4 MCV 101.9 H MCH 34.6 H MCHC 34.0 RDW 14.8 H Plt Count 192 MPV 9.2 Neut % (Auto) 59.5 Lymph % (Auto) 22.3 [place] % (Auto) 13.1 H Eos % (Auto) 3.8 Baso % (Auto) 1.3 Neut # 5.3 Lymph # 2.0 [place] # 1.2 H Eos # 0.3 Baso # 0.1 PT 12.8 H INR 1.1 APTT 32 Sodium 137 Potassium 3.6 Chloride 91 L Carbon Dioxide 33 H Anion Gap 16 BUN 22 H Creatinine 5.2 H Est GFR ( Amer) 13 Est GFR (Non-Af Amer) 11 Random Glucose 131 H Calcium 8.8 Total Bilirubin 0.7 AST 26 ALT 30 Alkaline Phosphatase 136 H D Total Creatine Kinase CK-MB (Mass) Troponin I 0.3220 H* NT-Pro-B Natriuret Pep 79866 H Total Protein 7.6 Albumin 4.3 Globulin 3.3 Albumin/Globulin Ratio 1.3 TSH 3rd Generation 10/04/17 08:46 WBC RBC Hgb Hct MCV MCH MCHC RDW Plt Count MPV Neut % (Auto) Lymph % (Auto) [place] % (Auto) Eos % (Auto) Baso % (Auto) Neut # Lymph # [place] # Eos # Baso # PT INR APTT Sodium Potassium Chloride Carbon Dioxide Anion Gap BUN Creatinine Est GFR ( Amer) Est GFR (Non-Af Amer) Random Glucose Calcium Total Bilirubin AST ALT Alkaline Phosphatase Total Creatine Kinase 52 L CK-MB (Mass) 3.26 Troponin I 1.3000 H* NT-Pro-B Natriuret Pep Total Protein Albumin Globulin Albumin/Globulin Ratio TSH 3rd Generation 1.99 Assessment & Plan - Assessment and Plan (Free Text) Assessment: ESRD CABG recurrent, symptomatic afib HTN recommendations plan per cardiology plan for [place] [facility] [place] [facility] [place]
[2017-10-04 15:26] LABS: CK-MB 2.42 ng/mL (0.0-3.38); TROPONIN I 1.29 ng/mL (0.00-0.120)
--- NOTE | 2017-10-04 16:00 | CP.PCM.PN ---
<Chaitanya Briggs - Last Filed: 10/04/17 17:20> Subjective - Date & Time of Evaluation Date of Evaluation: 10/04/17 Time of Evaluation: 17:20 - Subjective Subjective: Patient seen and examined. Denies any chest pain, SOB, or palpitations. Objective - Vital Signs/Intake and Output Vital Signs (last 24 hours): Temp Pulse Resp BP Pulse Ox 98 F 79 18 133/55 L 99 10/04/17 08:26 10/04/17 13:26 10/04/17 13:00 10/04/17 12:23 10/04/17 08:26 - Medications Medications: Current Medications Aspirin (Ecotrin) 81 mg PO DAILY [facility] Last Admin: 10/04/17 10:30 Dose: 81 mg Diltiazem HCl (Cardizem) 30 mg PO BID [facility] Last Admin: 10/04/17 10:30 Dose: 30 mg Losartan Potassium (Cozaar) 50 mg PO DAILY [facility] Last Admin: 10/04/17 10:30 Dose: 50 mg Metoprolol Tartrate (Lopressor) 25 mg PO BID [facility] Last Admin: 10/04/17 10:30 Dose: 25 mg Pantoprazole Sodium (Protonix Ec Tab) 40 mg PO DAILY [facility] Last Admin: 10/04/17 10:31 Dose: 40 mg Rosuvastatin Calcium (Crestor) 5 mg PO HS [facility] Sevelamer Carbonate (Renvela) 800 mg PO TID [facility] Last Admin: 10/04/17 13:38 Dose: 800 mg - Labs Labs: 10/04/17 00:53 10/04/17 00:53 PT 12.8 SECONDS (9.7-12.2) H 10/04/17 00:53 INR 1.1 10/04/17 00:53 APTT 32 SECONDS (21-34) 10/04/17 00:53 - Additional Findings Additional findings: - Constitutional Appears: Well, No Acute Distress - Head Exam Head Exam: ATRAUMATIC, NORMOCEPHALIC - Eye Exam Eye Exam: EOMI, PERRL - ENT Exam ENT Exam: Mucous Membranes Moist - Respiratory Exam Respiratory Exam: Clear to Auscultation Bilateral, NORMAL BREATHING PATTERN. absent: Rales, Rhonchi, Wheezes - Cardiovascular Exam Cardiovascular Exam: RRR, +S1, +S2, Systolic Murmur Additional comments: mid line scar on chest wall from prior surgery - GI/Abdominal Exam GI & Abdominal Exam: Normal Bowel Sounds, Soft. absent: Distended, Tenderness - Extremities Exam Extremities exam: Positive for: pedal pulses present. Negative for: pedal edema , tenderness - Neurological Exam Neurological exam: Alert, CN II-XII Intact, Oriented x3 - Psychiatric Exam Psychiatric exam: Normal Affect, Normal Mood - Skin Skin Exam: Dry, Intact, Normal Color, Warm Additional comments: midline scar on chest wall from prior surgery. AV fistula on left arm Assessment and Plan - Assessment and Plan (Free Text) Assessment: 82 year old male with PMHx CAD, AFib, HTN, ESRD on HD (T, Th, S), HLD who presents complaining of palpatations. Plan: SVT (supraventricular tachycardia) Cardiology consult, Dr. Kirk. Help appreciated. [place] [facility] [place] and [place]. Restarted home Lopressor 25 mg PO BID Restarted home Eliquis 5mg PO BID Trop: 0.3220-->1.300-->1.29 History of atrial fibrillation s/p ablation x3 Restarted home Eliquis 5mg PO BID Restarted home Lopressor 25 mg PO BID ESRD (end stage renal disease) on dialysis Specialty Trimmer Dr. Higuera consulted, help appreciated HD on T, , S Restarted home med Renvela 800mg PO TID CAD (coronary artery disease) Trop elevated likely due to ESRD Restarted home Losartan 50mg PO daily Restarted home Lopressor 25 mg PO BID Restarted home Aspirin 81 mg PO daily HLD (hyperlipidemia) Restarted home Crestor 5mg PO HS HTN (hypertension) Restarted home Losartan 50mg PO daily Restarted home Lopressor 25 mg PO BID Prophylactic measure Eliquis 5mg PO BID Protonix 40 mg PO daily Renal dialysis Diet Dispo: Patient to be transferred [place] [facility] [place] per Cardio. a <Ava Dai V - Last Filed: 10/04/17 22:48> Objective - Vital Signs/Intake and Output Vital Signs (last 24 hours): Temp Pulse Resp BP Pulse Ox 97.8 F 55 L 20 126/52 L 97 10/04/17 15:30 10/04/17 16:00 10/04/17 15:30 10/04/17 15:30 10/04/17 15:30 - Medications Medications: Current Medications Aspirin (Ecotrin) 81 mg PO DAILY [facility] Last Admin: 10/04/17 10:30 Dose: 81 mg Diltiazem HCl (Cardizem) 30 mg PO BID [facility] Last Admin: 10/04/17 20:38 Dose: Not Given Losartan Potassium (Cozaar) 50 mg PO DAILY [facility] Last Admin: 10/04/17 10:30 Dose: 50 mg Metoprolol Tartrate (Lopressor) 25 mg PO BID [facility] Last Admin: 10/04/17 20:38 Dose: Not Given Pantoprazole Sodium (Protonix Ec Tab) 40 mg PO DAILY [facility] Last Admin: 10/04/17 10:31 Dose: 40 mg Rosuvastatin Calcium (Crestor) 5 mg PO HS [facility] Last Admin: 10/04/17 21:14 Dose: 5 mg Sevelamer Carbonate (Renvela) 800 mg PO TID [facility] Last Admin: 10/04/17 17:57 Dose: 800 mg - Labs Labs: 10/04/17 00:53 10/04/17 00:53 PT 12.8 SECONDS (9.7-12.2) H 10/04/17 00:53 INR 1.1 10/04/17 00:53 APTT 32 SECONDS (21-34) 10/04/17 00:53 Attending/Attestation - Attestation I have personally seen and examined this patient.: Yes I have fully participated in the care of the patient.: Yes I have reviewed all pertinent clinical information, including history, physical exam and plan: Yes Notes (Text): Patient seen, examined and case discussed with day-time resident. Patient seen in the ED Bed 7 awaiting for telemetry at 9:30AM this morning. Patient had converted to NSR after dose of Cardizem 10mg IV X1, cardizem drip cancelled. Patient seen reports he feels better now. He reports overnight, he had felt palpitations and associated chest tightness but reports he feels better at bedside. Denies other ROS including headache, cough, abdominal pain, nausea, vomitting, abdominal pain, dysuria, hematuria, constipation. Patient was unable to fill his Cardizem when he left the hospital. Patient was scheduled for nuclear stress test but came to the hospital. Discussed case with cardiology, patient to be transferred out tomorrow [place] [facility] [place] given CAD hx and will need ablation with his partner, Dr. Valdivia , intake specialist. Assessment/Plan 1) Chest Pain History of Coronary Artery Disease History of CABG SVT (supraventricular tachycardia) * Cardiology consult, Dr. Kirk. Help appreciated. * Patient to be transferred [place] [facility] [place] and cardiac catherization. * Eliquis was renally adjusted to 2.5mg PO BID; d/c in preparation for cardiac catherization. * Patient converted to NSR following Cardizem 10mg IV X1. * Restarted home Lopressor 25 mg PO BID (hold SBP<100 and HR<60) * Start Cardizem 30mg PO BID (hold SBP<100 and HR<60) * Trop: 0.3220-->1.300-->1.29 * Aspirin 81mg PO daily 2) History of atrial fibrillation/flutter * s/p ablation x3 * Restarted home Eliquis 2.5mg PO BID and discontinue by cardiology in preparation for cardiac cath * Restarted home Lopressor 25 mg PO BID (hold SBP<100 and HR<60) * Start Cardizem 30mg PO BID (hold SBP<100 and HR<60) 3) ESRD (end stage renal disease) on dialysis * Specialty Trimmer Dr. Higuera consulted, help appreciated * HD on T, Th, S * Restarted home med Renvela 800mg PO TID * Patient scheduled for [place]D tomorrow [place] [facility] 4) CAD (coronary artery disease) * Patient going to cardiac cath tomorrow [place] [facility] * Restarted home Losartan 50mg PO daily * Restarted home Lopressor 25 mg PO BID * Restarted home Aspirin 81 mg PO daily * unclear elevated troponin in light of CAD and ESRD 5) HLD (hyperlipidemia) * Restarted home Crestor 5mg PO HS 6) HTN (hypertension) * Restarted home Losartan 50mg PO daily * Restarted home Lopressor 25 mg PO BID 7) Prophylactic measure * Eliquis 2.5mg PO BID; Chemical anticoagulation d/c in preparation for cardiac cath tomorrow [place] [facility] * Protonix 40 mg PO daily * Renal dialysis Diet Dispo: Patient to be transferred [place] [facility] [place] per Cardiology for cardiac catherization. Patient will need ablation as well.
[2017-10-04 16:49] VITALS: RESP 20
[2017-10-05 06:36] VITALS: BP 136/61; PULSE 65; TEMP 97.7; O2SAT 95
--- NOTE | 2017-10-05 09:10 | CP.PCM.DIS ---
Provider - Provider Date of Admission: 10/04/17 01:30 Attending physician: Ava Dai DO Consults: Cardio - Dr. Kirk Nephro - Dr. Higuera Time Spent in preparation of Discharge (in minutes): 40 Hospital Course - Lab Results Lab Results: Most Recent Lab Values WBC 9.0 K/uL (4.8-10.8) 10/04/17 00:53 RBC 3.47 Mil/uL (4.40-5.90) L 10/04/17 00:53 Hgb 12.0 g/dL (12.0-18.0) 10/04/17 00:53 Hct 35.4 % (35.0-51.0) 10/04/17 00:53 MCV 101.9 fL (80.0-94.0) H 10/04/17 00:53 MCH 34.6 pg (27.0-31.0) H 10/04/17 00:53 MCHC 34.0 g/dL (33.0-37.0) 10/04/17 00:53 RDW 14.8 % (11.5-14.5) H 10/04/17 00:53 Plt Count 192 K/uL (130-400) 10/04/17 00:53 MPV 9.2 fL (7.2-11.7) 10/04/17 00:53 Neut % (Auto) 59.5 % (50.0-75.0) 10/04/17 00:53 Lymph % (Auto) 22.3 % (20.0-40.0) 10/04/17 00:53 Elbert % (Auto) 13.1 % (0.0-10.0) H 10/04/17 00:53 Eos % (Auto) 3.8 % (0.0-4.0) 10/04/17 00:53 Baso % (Auto) 1.3 % (0.0-2.0) 10/04/17 00:53 Neut # 5.3 K/uL (1.8-7.0) 10/04/17 00:53 Lymph # 2.0 K/uL (1.0-4.3) 10/04/17 00:53 Elbert # 1.2 K/uL (0.0-0.8) H 10/04/17 00:53 Eos # 0.3 K/uL (0.0-0.7) 10/04/17 00:53 Baso # 0.1 K/uL (0.0-0.2) 10/04/17 00:53 PT 12.8 SECONDS (9.7-12.2) H 10/04/17 00:53 INR 1.1 10/04/17 00:53 APTT 32 SECONDS (21-34) 10/04/17 00:53 Sodium 137 mmol/L (132-148) 10/04/17 00:53 Potassium 3.6 mmol/L (3.6-5.2) 10/04/17 00:53 Chloride 91 mmol/L (98-107) L 10/04/17 00:53 Carbon Dioxide 33 mmol/L (22-30) H 10/04/17 00:53 Anion Gap 16 (10-20) 10/04/17 00:53 BUN 22 mg/dL (9-20) H 10/04/17 00:53 Creatinine 5.2 mg/dL (0.8-1.5) H 10/04/17 00:53 Est GFR ( Amer) 13 10/04/17 00:53 Est GFR (Non-Af Amer) 11 10/04/17 00:53 POC Glucose (mg/dL) 80 mg/dL (65-110) 10/05/17 06:06 Random Glucose 131 mg/dL (75-110) H 10/04/17 00:53 Calcium 8.8 mg/dl (8.6-10.4) 10/04/17 00:53 Total Bilirubin 0.7 mg/dL (0.2-1.3) 10/04/17 00:53 AST 26 U/L (17-59) 10/04/17 00:53 ALT 30 U/L (21-72) 10/04/17 00:53 Alkaline Phosphatase 136 U/L (38-126) H D 10/04/17 00:53 Total Creatine Kinase 59 U/L (55-170) 10/04/17 14:53 CK-MB (Mass) 2.42 ng/mL (0.0-3.38) 10/04/17 14:53 Troponin I 1.2900 ng/mL (0.00-0.120) H* 10/04/17 14:53 NT-Pro-B Natriuret Pep 37185 pg/mL (0-900) H 10/04/17 00:53 Total Protein 7.6 g/dL (6.3-8.3) 10/04/17 00:53 Albumin 4.3 g/dL (3.5-5.0) 10/04/17 00:53 Globulin 3.3 gm/dL (2.2-3.9) 10/04/17 00:53 Albumin/Globulin Ratio 1.3 (1.0-2.1) 10/04/17 00:53 TSH 3rd Generation 1.99 mIU/L (0.46-4.68) 10/04/17 08:46 - Hospital Course Hospital Course: This is an 82 year old male with PMHx CAD, AFib, HTN, ESRD on HD (T, Th, S), HLD who presents complaining of palpatations. This began similar to the most recent episode. Patient was preparing to go to sleep when he felt his heart racing at around 11PM. Patient measured his vitals at home and he was "195/90" and his pulse around "122." Patient denies chest pain but admitted to mild diaphoresis minutes after his episode began. Patient also denies dyspnea. He states that he just felt unwell. This sensation is relieved with sitting in an upright posture as opposed to lying down. Patient states that he took all of his medications yesterday and also had his regularly scheduled dialysis session. There was concern of ST segment elevations while patient in the ED. The ED spoke with the [facility] senior health educator, but per the specialist, the patient was not a candidate for PCI at this time. Patient's rate was controlled with Cardizem 25 and his symptoms resolved. Nephro and Cardiology were consulted on the case Last EKG on 10/04/17 @ 9:45am showed NSR without any acute ST or T wave changes. Relevant studies below. Transfer to [facility] [place] set up by cardio team for an ablation and catherization. BNP - 88840 TSH - WNL @ 1.99 Troponins - 0.3220-->1.300-->1.29 CKMB - WNL - Date & Time of H&P Date of H&P: 10/05/17 Time of H&P: 09:23 Discharge Exam - Head Exam Head Exam: ATRAUMATIC, NORMAL INSPECTION - Additional Findings Additional findings: - Constitutional Appears: Well, No Acute Distress - Head Exam Head Exam: ATRAUMATIC, NORMOCEPHALIC - Eye Exam Eye Exam: EOMI, PERRL - ENT Exam ENT Exam: Mucous Membranes Moist - Respiratory Exam Respiratory Exam: Clear to Auscultation Bilateral, NORMAL BREATHING PATTERN. absent: Rales, Rhonchi, Wheezes - Cardiovascular Exam Cardiovascular Exam: RRR, +S1, +S2, Systolic Murmur Additional comments: mid line scar on chest wall from prior surgery - GI/Abdominal Exam GI & Abdominal Exam: Normal Bowel Sounds, Soft. absent: Distended, Tenderness - Extremities Exam Extremities exam: Positive for: pedal pulses present. Negative for: pedal edema , tenderness - Neurological Exam Neurological exam: Alert, CN II-XII Intact, Oriented x3 - Psychiatric Exam Psychiatric exam: Normal Affect, Normal Mood - Skin Skin Exam: Dry, Intact, Normal Color, Warm Additional comments: midline scar on chest wall from prior surgery. AV fistula on left arm Discharge Plan - Follow Up Plan Condition: STABLE Disposition: Trans to Other Acute Care Hosp
[2017-10-05] MEDS: Pantoprazole 40 mg EC Tab PO SCH (09:56)
--- NOTE | 2017-10-05 12:13 | CP.PCM.PN ---
<MiteshedelmiraChaitanya - Last Filed: 10/05/17 12:14> Subjective - Date & Time of Evaluation Date of Evaluation: 10/05/17 Time of Evaluation: 07:00 - Subjective Subjective: Patient seen and examined on stretcher pending transfer to [facility] for [place] and catherization. No overnight events reported. No complaints at this time. Denies any LH, Dizziness, CP, SOB, or palpitations. Objective - Vital Signs/Intake and Output Vital Signs (last 24 hours): Temp Pulse Resp BP Pulse Ox 97.7 F 65 20 136/61 95 10/05/17 06:35 10/05/17 06:35 10/05/17 06:35 10/05/17 06:35 10/05/17 06:35 - Medications Medications: Current Medications Aspirin (Ecotrin) 81 mg PO DAILY [facility] Last Admin: 10/05/17 09:55 Dose: Not Given Diltiazem HCl (Cardizem) 30 mg PO BID [facility] Last Admin: 10/05/17 09:55 Dose: Not Given Losartan Potassium (Cozaar) 50 mg PO DAILY [facility] Last Admin: 10/05/17 09:55 Dose: Not Given Metoprolol Tartrate (Lopressor) 25 mg PO BID [facility] Last Admin: 10/05/17 09:56 Dose: Not Given Pantoprazole Sodium (Protonix Ec Tab) 40 mg PO DAILY [facility] Last Admin: 10/05/17 09:56 Dose: Not Given Rosuvastatin Calcium (Crestor) 5 mg PO HS [facility] Last Admin: 10/04/17 21:14 Dose: 5 mg Sevelamer Carbonate (Renvela) 800 mg PO TID [facility] Last Admin: 10/05/17 09:56 Dose: Not Given - Labs Labs: 10/04/17 00:53 10/04/17 00:53 PT 12.8 SECONDS (9.7-12.2) H 10/04/17 00:53 INR 1.1 10/04/17 00:53 APTT 32 SECONDS (21-34) 10/04/17 00:53 - Additional Findings Additional findings: - Constitutional Appears: Well, No Acute Distress - Head Exam Head Exam: ATRAUMATIC, NORMOCEPHALIC - Eye Exam Eye Exam: EOMI, PERRL - ENT Exam ENT Exam: Mucous Membranes Moist - Respiratory Exam Respiratory Exam: Clear to Auscultation Bilateral, NORMAL BREATHING PATTERN. absent: Rales, Rhonchi, Wheezes - Cardiovascular Exam Cardiovascular Exam: RRR, +S1, +S2, Systolic Murmur Additional comments: mid line scar on chest wall from prior surgery - GI/Abdominal Exam GI & Abdominal Exam: Normal Bowel Sounds, Soft. absent: Distended, Tenderness - Extremities Exam Extremities exam: Positive for: pedal pulses present. Negative for: pedal edema , tenderness - Neurological Exam Neurological exam: Alert, CN II-XII Intact, Oriented x3 - Psychiatric Exam Psychiatric exam: Normal Affect, Normal Mood - Skin Skin Exam: Dry, Intact, Normal Color, Warm Additional comments: midline scar on chest wall from prior surgery. AV fistula on left arm Assessment and Plan - Assessment and Plan (Free Text) Assessment: 82 year old male with PMHx CAD, AFib, HTN, ESRD on HD (T, Th, S), HLD who presents complaining of palpatations. Plan: SVT (supraventricular tachycardia) Cardiology consult, Dr. Kirk. Help appreciated. Will go to [facility] tomorrow for ablation and catherization. Restarted home Lopressor 25 mg PO BID Restarted home Eliquis 5mg PO BID Trop: 0.3220-->1.300-->1.29 History of atrial fibrillation s/p ablation x3 Restarted home Eliquis 5mg PO BID Restarted home Lopressor 25 mg PO BID ESRD (end stage renal disease) on dialysis Resistor Tester Dr. Higuera consulted, help appreciated HD on T, Th, S Restarted home med Renvela 800mg PO TID CAD (coronary artery disease) Trop elevated likely due to ESRD Restarted home Losartan 50mg PO daily Restarted home Lopressor 25 mg PO BID Restarted home Aspirin 81 mg PO daily HLD (hyperlipidemia) Restarted home Crestor 5mg PO HS HTN (hypertension) Restarted home Losartan 50mg PO daily Restarted home Lopressor 25 mg PO BID Prophylactic measure Eliquis 5mg PO BID Protonix 40 mg PO daily Renal dialysis Diet Dispo: Transferred to [facility] today. PENDING return to [facility] today. Patient discussed with Attending Chaitanya Briggs - PGY1 <Ava Dai V - Last Filed: 10/05/17 18:58> Objective - Vital Signs/Intake and Output Vital Signs (last 24 hours): Temp Pulse Resp BP Pulse Ox 97.7 F 65 20 136/61 95 10/05/17 06:35 10/05/17 06:35 10/05/17 06:35 10/05/17 06:35 10/05/17 06:35 - Medications Medications: Current Medications Aspirin (Ecotrin) 81 mg PO DAILY [facility] Last Admin: 10/05/17 09:55 Dose: Not Given Diltiazem HCl (Cardizem) 30 mg PO BID [facility] Last Admin: 10/05/17 09:55 Dose: Not Given Losartan Potassium (Cozaar) 50 mg PO DAILY [facility] Last Admin: 10/05/17 09:55 Dose: Not Given Metoprolol Tartrate (Lopressor) 25 mg PO BID [facility] Last Admin: 10/05/17 09:56 Dose: Not Given Pantoprazole Sodium (Protonix Ec Tab) 40 mg PO DAILY [facility] Last Admin: 10/05/17 09:56 Dose: Not Given Rosuvastatin Calcium (Crestor) 5 mg PO HS [facility] Last Admin: 10/04/17 21:14 Dose: 5 mg Sevelamer Carbonate (Renvela) 800 mg PO TID [facility] Last Admin: 10/05/17 13:01 Dose: Not Given - Labs Labs: 10/04/17 00:53 10/04/17 00:53 PT 12.8 SECONDS (9.7-12.2) H 10/04/17 00:53 INR 1.1 10/04/17 00:53 APTT 32 SECONDS (21-34) 10/04/17 00:53 Attending/Attestation - Attestation Notes (Text): Patient was transferred to [facility] for cardiac cath and ablation this morning and is expected to return. Patient has not yet returned at the end of my shift.
--- NOTE | 2017-10-05 14:39 | CARD ---
APPROVED REPORT EKG Measurement Heart [id number] <Conclusion> Sinus bradycardia with 1st degree AV block Nonspecific ST and T wave abnormality Abnormal ECG
--- NOTE | 2017-10-05 14:46 | CARD ---
APPROVED REPORT EKG Measurement Heart [id number] <Conclusion> Normal sinus rhythm Nonspecific ST and T wave abnormality Abnormal ECG
--- NOTE | 2017-10-05 14:52 | CARD ---
APPROVED REPORT EKG Measurement Heart [id number] <Conclusion> Atrial flutter with variable AV block Left ventricular hypertrophy with repolarization abnormality Abnormal ECG
--- NOTE | 2017-10-05 14:53 | CARD ---
APPROVED REPORT EKG Measurement Heart [id number] <Conclusion> Atrial fibrillation with rapid ventricular response ST elevation, consider anterior injury or acute infarct ACUTE MN / STEMI Abnormal ECG
== END 2017-10-05 22:08 | disposition short-term general hospital (02) | DRG 308 ==
LOC: C.ER 00:26 → C.9E 01:30 → OBSVTOIN 01:30 → C.6T 12:18
PROVIDERS: ADMIT Hospitalist; ATTEND Hospitalist
DX: I47.1 Supraventricular tachycardia (principal); N18.6 End stage renal disease; I12.0 Hypertensive chronic kidney disease with stage 5 chronic kidney disease or end stage renal disease; I48.91 Unspecified atrial fibrillation; I25.10 Atherosclerotic heart disease of native coronary artery without angina pectoris; E78.00 Pure hypercholesterolemia, unspecified; R74.8 Abnormal levels of other serum enzymes; Z79.82 Long term (current) use of aspirin; Z95.5 Presence of coronary angioplasty implant and graft; Z79.899 Other long term (current) drug therapy; Z82.49 Family history of ischemic heart disease and other diseases of the circulatory system; Z83.3 Family history of diabetes mellitus; Z95.1 Presence of aortocoronary bypass graft; Z99.2 Dependence on renal dialysis; Z95.2 Presence of prosthetic heart valve

== ENCOUNTER 2018-01-12 10:44 | Inpatient (IN) | payer MEDICARE ==
[2018-01-12 11:01] VITALS: BMI 24.5
--- NOTE | 2018-01-12 11:38 | C.PDOC ---
History Of Present Illness 83-YEAR-OLD MALE, PRESENTS TO THE EMERGENCY DEPARTMENT WITH COMPLAINTS OF WORSENING COUGH X 1 WEEK. 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 NO TONY/ORTHOPNEA, SOB. S/P CHEST SCAR REVISION 2017 @ [facility] [place] [place] PAIN TO AREA DUE TO FREQ COUGHING. +POST TUSSIVE VOMITING. PMHx CAD, AFib, HTN, ESRD on HD (T, Th, S), HLD, LAST 4/12 PS "THEY TOOK OFF EXTRA FLUID". PMD SKLOWER NEPH KEVON EXAM MILD DIST NONTOXIC 90% RA HEENT NEG LUNGS +ACTIVE DRY COUGH NO TACHYPNEA, SPEAKING FULL SENTENCES CTA B/L NO W/R/R NO EDEMA REMAINDER NEG Time Seen by Provider: 01/12/18 11:12 Chief Complaint (Nursing): Cough, Cold, Congestion History Per: Patient History/Exam Limitations: no limitations Onset/Duration Of Symptoms: Days Current Symptoms Are (Timing): Still Present Past Medical History Reviewed: Historical Data, Nursing Documentation, Vital Signs Vital Signs: Last Vital Signs Temp 101.5 F H 01/12/18 15:56 Pulse 82 01/12/18 15:56 Resp 18 01/12/18 15:56 BP 127/86 01/12/18 15:56 Pulse Ox 96 01/12/18 15:56 - Medical History PMH: Atrial Fibrillation, HTN, Hypercholesterolemia, Hyperlipidemia, End Stage Renal Disease, Chronic Kidney Disease Surgical History: Appendectomy, CABG, Coronary Stent Family History: States: No Known Family Hx - Social History Hx Alcohol Use: No Hx Substance Use: No - Immunization History Hx Tetanus Toxoid Vaccination: No Hx Influenza Vaccination: Yes Hx Pneumococcal Vaccination: Yes Review Of Systems Except As Marked, All Systems Reviewed And Found Negative. Constitutional: Negative for: Fever, Chills Cardiovascular: Negative for: Palpitations, Edema, Light Headedness Respiratory: Positive for: Cough, Pleuritic Pain Gastrointestinal: Positive for: Vomiting Musculoskeletal: Negative for: Back Pain Neurological: Negative for: Weakness, Numbness, Headache, Dizziness Physical Exam - Physical Exam Appears: Non-toxic, No Acute Distress (mild distress) Skin: Normal Color, Warm, Dry, No Rash Head: Normacephalic Eye(s): bilateral: PERRL Nose: Normal Oral Mucosa: Moist Lips: Normal Appearing Neck: Normal ROM Cardiovascular: Rhythm Regular, No Murmur Respiratory: Other ( +ACTIVE DRY COUGH NO TACHYPNEA, SPEAKING FULL SENTENCES CTA B/L NO W/R/R) Extremity: Normal ROM, No Pedal Edema, No Deformity, No Swelling Neurological/Psych: Oriented x3, Normal Speech ED Course And Treatment - Laboratory Results Result Diagrams: 01/12/18 12:10 01/12/18 12:10 Interpretation Of Abnormal: ABG HYPOXEMIA ECG: Interpreted By Me ECG Rhythm: Sinus Rhythm Interpretation Of ECG: [id number] Rate From EC O2 Sat by Pulse Oximetry: 93 (RA) Pulse Ox Interpretation: Abnormal - Radiology CXR: Interpreted by Me (right perihilar opacity compared to 10/2017) Progress - Re-Evaluation Re-evaluation Note: 01/12/18 13:07 NARD APPEARS COMFORTABLE. 01/12/18 13:10 DR KEVON ERIC. PENDING CALL BACK 01/12/18 13:35 DR KEVON ERIC. PENDING CALL BACK 01/12/18 13:48 D/W DR LUND AWARE OF ER FINDINGS WILL EVAL IN ER 01/12/18 16:20 D/W DR Cydney HORN C/F PMD WILL ADMIT - Data Reviewed Data Reviewed: Lab, Diagnostic imaging, EKG, Old records - Continuity of Care Discussed patient case with:: Patient, Family-HIPPA compliant, Covering for PMD Discussed pt. case with [facility] consultant/specialty: Nephrology Disposition Counseled Patient/Family Regarding: Studies Performed, Diagnosis - Disposition Disposition: HOSPITALIZED Disposition Time: 16:21 Condition: STABLE Forms: [facility] (Nepalese) - POA Present On Arrival: None - Clinical Impression Clinical Impression: ESRD (end stage renal disease) on dialysis, Hypoxemia, Cough - Scribe Statement The provider has reviewed the documentation as recorded by the Scribe (Kalli Kingston) All medical record entries made by the Scribe were at my direction and personally dictated by me. I have reviewed the chart and agree that the record accurately reflects my personal performance of the history, physical exam, medical decision making, and the department course for this patient. I have also personally directed, reviewed, and agree with the discharge instructions and disposition. Decision To Admit - Pt Status Changed To: Hospital Disposition Of: Inpatient - Admit Certification Admit to Inpatient:: After my assessment, the patient will require hospitalization for at least two midnights. This is because of the severity of symptoms shown, intensity of services needed, and/or the medical risk in this patient being treated as an outpatient. - InPatient: Physician Admission Certification: I certify that this patient requires 2 or more midnights of care for the following reason:: SEE NOTE - . Bed Request Type: Regular Admitting Physician: Julius Horn Patient Diagnosis: ESRD (end stage renal disease) on dialysis, Hypoxemia, Cough
--- NOTE | 2018-01-12 11:58 | RAD ---
HISTORY: COUGH COMPARISON: Chest radiograph dated 10/04/2017. TECHNIQUE: Chest PA and lateral FINDINGS: LUNGS: Stable chronic prominence of the bilateral interstitial markings. No focal consolidation. PLEURA: No significant pleural effusion identified. No pneumothorax apparent. CARDIOVASCULAR: Interval change in sternal closure hardware. Mediastinal surgical clips redemonstrated. Atherosclerotic aortic calcifications. Prostatic aortic valve Cardiomediastinal silhouette stably enlarged. OSSEOUS STRUCTURES: Unchanged. VISUALIZED UPPER ABDOMEN: Normal. OTHER FINDINGS: None. IMPRESSION: Stable chronic prominence of the bilateral interstitial markings. No focal consolidation or pleural effusion.
[2018-01-12 12:09] LABS: ABG ALLEN TEST PO; ARTERIAL BLOOD GAS HCO3 30.6 mmol/L (21-28); ARTERIAL BLOOD GAS O2 SAT 97.3 % (95-98); ARTERIAL BLOOD GAS PCO2 34 mm/Hg (35-45); ARTERIAL BLOOD GAS PH 7.55 (7.35-7.45); ARTERIAL BLOOD GAS PO2 76 mm/Hg (80-100); ARTERIAL BLOOD GAS TCO2 30.7 mmol/L (22-28)
[2018-01-12 12:25] LABS: BASO # 0.1 K/uL (0.0-0.2); EOS % 0.1 % (0.0-4.0); HEMOGLOBIN 10.3 g/dL (12.0-18.0); LYMPH # 0.6 K/uL (1.0-4.3); LYMPH % 8.2 % (20.0-40.0); MEAN CORPUSCULAR HEMOGLOBIN 33.2 pg (27.0-31.0); MEAN CORPUSCULAR HGB CONC 33.7 g/dL (33.0-37.0); MEAN PLATELET VOLUME 8.9 fL (7.2-11.7); MONO % 12.4 % (0.0-10.0); NEUT % 78.3 % (50.0-75.0); NRBC % 0.1 % (0.0-2.0); PLATELET COUNT 212 K/uL (130-400); RBC 3.12 Mil/uL (4.40-5.90); RED CELL DISTRIBUTION WIDTH 16.1 % (11.5-14.5); WHITE BLOOD COUNT 7.7 K/uL (4.8-10.8)
[2018-01-12 12:32] LABS: ALB/GLOB RATIO 1.1 (1.0-2.1); ALBUMIN 4.4 g/dL (3.5-5.0); CALCIUM 8.8 mg/dl (8.6-10.4)
[2018-01-12 12:34] LABS: MEAN CELL VOLUME 98.4 fL (80.0-94.0)
[2018-01-12 12:42] LABS: TROPONIN I 0.233 ng/mL (0.00-0.120)
[2018-01-12 13:15] LABS: BANDS 1 % (0-2); TOTAL CELLS COUNTED 100
[2018-01-12 13:16] LABS: ANISOCYTOSIS SLIGHT; HYPOCHROMIC SLIGHT; LYMPHOCYTE 8 % (20-40); MONOCYTE 12 % (0-10); NEUTROPHIL 79 % (50-75); PLATELET ESTIMATE NORMAL (NORMAL); POIKILOCYTOSIS SLIGHT
[2018-01-12 13:17] LABS: LARGE PLATELETS PRESENT; TARGET CELLS SLIGHT
[2018-01-12 13:18] LABS: MICROCYTOSIS SLIGHT
[2018-01-12] MEDS ORDERED: Iodixanol 320 MG/ML 100 ML BOTTLE IV ONE (14:39)
--- NOTE | 2018-01-12 15:50 | CT ---
PROCEDURE: CT Chest with contrast (Pulmonary Angiogram) HISTORY: SOB r/o PE COMPARISON: CT chest dated 09/14/2016. TECHNIQUE: Axial computed tomography images were obtained of the chest in the pulmonary arterial phase of enhancement. Coronal and sagittal reformatted images were created and reviewed. Intravenous contrast dose: 100 mL Visipaque 320 Radiation dose: Total exam DLP = 609.4 mGy-cm. This CT exam was performed using one or more of the following dose reduction techniques: Automated exposure control, adjustment of the mA and/or kV according to patient size, and/or use of iterative reconstruction technique. FINDINGS: PULMONARY ARTERIES: Unremarkable. No pulmonary embolism. AORTA: No acute findings. No thoracic aortic aneurysm. Calcific atherosclerosis. LUNGS: Lingula scarring. No nodule, mass or pulmonary consolidation. PLEURAL SPACES: Unremarkable. No effusion or pneumothorax. HEART: Cardiomegaly. Prior CABG, interval change of sternal hardware. No significant pericardial effusion. LYMPH NODES: Multiple small mediastinal lymph nodes. BONES, CHEST WALL: Unremarkable. No fracture or destructive lesion OTHER FINDINGS: Left upper pole exophytic now hyper attenuating structure measuring 3.3 x 2.8 cm, previously characterized as simple cyst. IMPRESSION: Unremarkable CT pulmonary angiogram. No pulmonary embolus. No focal consolidation or pleural effusion. New nonspecific small mediastinal lymph nodes, which do not meet CT criteria for adenopathy. Previously characterize left upper pole is simple cyst is now hyper attenuating, likely representing conversion to a hemorrhagic cyst. Correlation can be made with renal ultrasound.
--- NOTE | 2018-01-12 17:40 | CP.PCM.HP ---
<Meg Garvin - Last Filed: 01/12/18 17:54> History of Present Illness - History of Present Illness History of Present Illness: H&P 83 year old male with past medical history of CAD s/p CABG in 2015, ESRD on HD T ,Th, Sat, HLD, A fib presented to hospital for cough. Patient states that he has had cough for a few years. In November, patient had revision of midline chest scar due to dehiscence. Since the reconstruction, patient has developed a non-productive cough. In past few days though, cough has worsened. Patient also complains of dyspnea on exertion (walking up flight of stairs) and even with mild daily activities for past few weeks. Patient complains of pain in his ribs due to persistent coughing. Denies having any CP with exertion, abd pain, N/V/D/C, F/C. Patient denies having any chest congestion. He does complain of chronic sinus congestion and clear rhinorrhea. [facility] and has most of his cardiac work up there. Last echo on file here was in 2014 which was normal at the time. Last dialysis treatment was yesterday. Pmhx: stated above PSHx: Appendectomy at age 19, Prostectomy 2001, Hernia repair 2003, Coronary Stent 2009, Thoracentesis 2015, CABG 2015, Aortic Valve replacement 2015, ablations in the past, Chest wall scar reconstruction 11/2017 Allergies: Morphine FamHx: Father had [place], DM2; Mother had OR, DM2 Social: Never smoked; Non-drinker; No illicit drugs; Lives with at home PMD: Dr Bennett Acquisition Marketing Manager: Dr Kirk Supervisor Sewing Department: Dr Higuera Home Medications: Crestor 5mg PO daily, Cozaar 50mg PO daily, Eliquis 5mg PO BID , Renvela 800mg PO TID, Lopressor 25mg PO BID, singulair 10 mg po qd, Sensipar 30 mg po qd, Aspirin 81 mg po qd Present on Admission - Present on Admission Any Indicators Present on Admission: No Review of Systems - Constitutional Constitutional: absent: Chills, Fever - EENT Eyes: absent: Change in Vision, Discharge Nose/Mouth/Throat: Nasal Discharge. absent: Nasal Congestion, Sinus Pain, Dysphagia, Sore Throat, Throat Swelling, Neck Pain - Cardiovascular Cardiovascular: Dyspnea. absent: Chest Pain, Edema, Irregular Heart Rhythm, Leg Edema, Lightheadedness, Pedal Edema - Respiratory Respiratory: Cough, Dyspnea, Dyspnea on Exertion, Wheezing, Pain with Coughing. absent: Hemoptysis - Gastrointestinal Gastrointestinal: absent: Abdominal Pain, Constipation, Diarrhea, Nausea, Vomiting - Musculoskeletal Musculoskeletal: absent: Back Pain, Muscle Cramps - Integumentary Integumentary: absent: Acne, Lesions Additional comments: erythema in center of chest - Neurological Neurological: absent: Dizziness, Headaches - Psychiatric Psychiatric: absent: Anxiety, Depression - Endocrine Endocrine: Fatigue Past Patient History - Infectious Disease Hx of Infectious Diseases: None - Past Medical History & Family History Past Medical History?: Yes - Past Social History Smoking Status: Never Smoked Chewing Tobacco Use: No Cigar Use: No Alcohol: None Drugs: Denies Home Situation {Lives}: With Family - CARDIAC Hx Atrial Fibrillation: Yes Hx Hypercholesterolemia: Yes Hx Hypertension: Yes - PULMONARY Hx Respiratory Disorders: No Other/Comment: left pleural effusion - NEUROLOGICAL Hx Neurological Disorder: No - HEENT Hx HEENT Problems: No Hx Cataracts: Yes - RENAL Hx Chronic Kidney Disease: Yes - ENDOCRINE/METABOLIC Hx Endocrine Disorders: No - HEMATOLOGICAL/ONCOLOGICAL Hx Blood Disorders: No - INTEGUMENTARY Hx Dermatological Problems: No - MUSCULOSKELETAL/RHEUMATOLOGICAL Hx Falls: No - GASTROINTESTINAL Hx Gastrointestinal Disorders: Yes Hx Constipation: Yes - GENITOURINARY/GYNECOLOGICAL Hx Genitourinary Disorders: No Hx Prostate Problems: Yes (removed at 67) - PSYCHIATRIC Hx Substance Use: No - SURGICAL HISTORY Hx Appendectomy: Yes Hx Coronary Artery Bypass Graft: Yes Hx Coronary Stent: Yes - ANESTHESIA Hx Anesthesia: Yes Hx Anesthesia Reactions: No Hx Malignant Hyperthermia: No Meds Allergies/Adverse Reactions: Allergies Allergy/AdvReac Type Severity Reaction Status Date / Time morphine Allergy VOMITING Verified 01/12/18 11:00 Physical Exam - Constitutional Appears: Non-toxic, No Acute Distress - Head Exam Head Exam: ATRAUMATIC - Eye Exam Eye Exam: EOMI - ENT Exam ENT Exam: Mucous Membranes Moist - Neck Exam Neck exam: Positive for: Lymphadenopathy (submandibular) - Respiratory Exam Respiratory Exam: Rales, Wheezes (expiratory B/L). absent: Accessory Muscle Use , Chest Wall Tenderness, Decreased Breath Sounds, Rhonchi, Respiratory Distress - Cardiovascular Exam Cardiovascular Exam: REGULAR RHYTHM, +S1, +S2. absent: Diastolic murmur, Gallop , Rubs, Systolic Murmur - GI/Abdominal Exam GI & Abdominal Exam: Normal Bowel Sounds, Soft. absent: Distended, Firm, Guarding, Rigid, Tenderness - Extremities Exam Extremities exam: Negative for: pedal edema, tenderness - Neurological Exam Neurological exam: Alert, Oriented x3 - Psychiatric Exam Psychiatric exam: Normal Affect, Normal Mood - Skin Skin Exam: Dry, Intact, Normal Color, Warm Additional comments: erythema noted in center of chest near scar Results - Vital Signs Recent Vital Signs: Last Vital Signs Temp 100.5 F H 01/12/18 17:15 Pulse 81 01/12/18 17:15 Resp 12 01/12/18 17:15 BP 140/69 01/12/18 17:15 Pulse Ox 98 01/12/18 17:15 - Labs Result Diagrams: 01/12/18 12:10 01/12/18 12:10 Labs: Laboratory Results - last 24 hr 01/12/18 01/12/18 01/12/18 12:05 12:10 12:10 WBC 7.7 RBC 3.12 L Hgb 10.3 L Hct 30.7 L MCV 98.4 H D MCH 33.2 H MCHC 33.7 RDW 16.1 H Plt Count 212 MPV 8.9 Neut % (Auto) 78.3 H Lymph % (Auto) 8.2 L [place] % (Auto) 12.4 H Eos % (Auto) 0.1 Baso % (Auto) 1.0 Neut # (Auto) 6.0 Lymph # (Auto) 0.6 L [place] # (Auto) 1.0 H Eos # (Auto) 0.0 Baso # (Auto) 0.1 Neutrophils % (Manual) 79 H Band Neutrophils % 1 Lymphocytes % (Manual) 8 L Monocytes % (Manual) 12 H Platelet Estimate Normal Large Platelets Present Hypochromasia (manual) Slight Poikilocytosis (manual Slight Anisocytosis (manual) Slight Microcytosis (manual) Slight Target Cells Slight D-Dimer, Quantitative Puncture Site Rra pCO2 34 L pO2 76 L HCO3 30.6 H ABG pH 7.55 H ABG Total CO2 30.7 H ABG O2 Saturation 97.3 ABG Base Excess 7.3 H Luis Test Po ABG Potassium 3.7 A-a O2 Difference 31.0 Respiratory Index 0.4 Sodium 140.0 141 Chloride 100.0 90 L Glucose 129 H Lactate 3.3 H FiO2 21.0 Potassium 4.3 Carbon Dioxide 29 Anion Gap 26 H BUN 28 H Creatinine 5.7 H Est GFR ( Amer) 12 Est GFR (Non-Af Amer) 10 Random Glucose 129 H Calcium 8.8 Total Bilirubin 0.8 AST 36 ALT 14 L D Alkaline Phosphatase 111 Troponin I 0.2330 H* NT-Pro-B Natriuret Pep 69066 H Total Protein 8.3 Albumin 4.4 Globulin 3.9 Albumin/Globulin Ratio 1.1 Arterial Blood Potassium 3.7 01/12/18 12:10 WBC RBC Hgb Hct MCV MCH MCHC RDW Plt Count MPV Neut % (Auto) Lymph % (Auto) [place] % (Auto) Eos % (Auto) Baso % (Auto) Neut # (Auto) Lymph # (Auto) [place] # (Auto) Eos # (Auto) Baso # (Auto) Neutrophils % (Manual) Band Neutrophils % Lymphocytes % (Manual) Monocytes % (Manual) Platelet Estimate Large Platelets Hypochromasia (manual) Poikilocytosis (manual Anisocytosis (manual) Microcytosis (manual) Target Cells D-Dimer, Quantitative 1892 H Puncture Site pCO2 pO2 HCO3 ABG pH ABG Total CO2 ABG O2 Saturation ABG Base Excess Luis Test ABG Potassium A-a O2 Difference Respiratory Index Sodium Chloride Glucose Lactate FiO2 Potassium Carbon Dioxide Anion Gap BUN Creatinine Est GFR ( Amer) Est GFR (Non-Af Amer) Random Glucose Calcium Total Bilirubin AST ALT Alkaline Phosphatase Troponin I NT-Pro-B Natriuret Pep Total Protein Albumin Globulin Albumin/Globulin Ratio Arterial Blood Potassium Assessment & Plan - Assessment and Plan (Free Text) Assessment: 83 year old male with past medical history of AFib, CAD, HLD, HTN, ESRD on HD ( [facility]) is admitted for persistent acute on chronic cough and dyspnea on exertion. [place], [place] [address]. Troponins are slightly elevated at 0.23 and EKg showed slight flattening on T waves in V1 and v2. CTA of chest showed no evidence of PE and no pulmonary effusions. Persistent cough - Likely secondary to CHF exacerbation vs. infectious etiology vs. valvular abnormality - Will check echo - Will check blood cultures and sputum cultures - Pt started on zithromax and rocephin - Will check procal level - Will start pt on Robitussin and Tessalon perls - Tylenol prn for fevers CAD s/p CABG - Will check serial trops and ekg - Will continue home medications: Aspirin 81 mg po qd, Lopressor 25 mg po qd, cozaar 50 mg po qd - will check HgbA1c and lipid panel HLD - continue home medication crestor ESRD on HD T, Th, S - Supervisor Sewing Department, 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 - continue Renvela, Sensipar A fib - Continue home medication Eliquis 5 mg po bid Prophylaxis - Eliquis - Pepcid QD - Renal diet Case discussed with attending, Dr. Chong. - Date & Time Date: 01/12/18 Time: 17:57 <Darian Chong - Last Filed: 01/12/18 18:33> Results - Vital Signs Recent Vital Signs: Last Vital Signs Temp 101.9 F H 01/12/18 18:12 Pulse 86 01/12/18 18:12 Resp 18 01/12/18 18:12 BP 139/62 01/12/18 18:12 Pulse Ox 95 01/12/18 18:12 - Labs Result Diagrams: 01/12/18 12:10 01/12/18 12:10 Labs: Laboratory Results - last 24 hr 01/12/18 01/12/18 01/12/18 12:05 12:10 12:10 WBC 7.7 RBC 3.12 L Hgb 10.3 L Hct 30.7 L MCV 98.4 H D MCH 33.2 H MCHC 33.7 RDW 16.1 H Plt Count 212 MPV 8.9 Neut % (Auto) 78.3 H Lymph % (Auto) 8.2 L [place] % (Auto) 12.4 H Eos % (Auto) 0.1 Baso % (Auto) 1.0 Neut # (Auto) 6.0 Lymph # (Auto) 0.6 L [place] # (Auto) 1.0 H Eos # (Auto) 0.0 Baso # (Auto) 0.1 Neutrophils % (Manual) 79 H Band Neutrophils % 1 Lymphocytes % (Manual) 8 L Monocytes % (Manual) 12 H Platelet Estimate Normal Large Platelets Present Hypochromasia (manual) Slight Poikilocytosis (manual Slight Anisocytosis (manual) Slight Microcytosis (manual) Slight Target Cells Slight D-Dimer, Quantitative Puncture Site Rra pCO2 34 L pO2 76 L HCO3 30.6 H ABG pH 7.55 H ABG Total CO2 30.7 H ABG O2 Saturation 97.3 ABG Base Excess 7.3 H Luis Test Po ABG Potassium 3.7 A-a O2 Difference 31.0 Respiratory Index 0.4 Sodium 140.0 141 Chloride 100.0 90 L Glucose 129 H Lactate 3.3 H FiO2 21.0 Potassium 4.3 Carbon Dioxide 29 Anion Gap 26 H BUN 28 H Creatinine 5.7 H Est GFR ( Amer) 12 Est GFR (Non-Af Amer) 10 Random Glucose 129 H Calcium 8.8 Total Bilirubin 0.8 AST 36 ALT 14 L D Alkaline Phosphatase 111 Troponin I 0.2330 H* NT-Pro-B Natriuret Pep 80036 H Total Protein 8.3 Albumin 4.4 Globulin 3.9 Albumin/Globulin Ratio 1.1 Arterial Blood Potassium 3.7 01/12/18 12:10 WBC RBC Hgb Hct MCV MCH MCHC RDW Plt Count MPV Neut % (Auto) Lymph % (Auto) [place] % (Auto) Eos % (Auto) Baso % (Auto) Neut # (Auto) Lymph # (Auto) [place] # (Auto) Eos # (Auto) Baso # (Auto) Neutrophils % (Manual) Band Neutrophils % Lymphocytes % (Manual) Monocytes % (Manual) Platelet Estimate Large Platelets Hypochromasia (manual) Poikilocytosis (manual Anisocytosis (manual) Microcytosis (manual) Target Cells D-Dimer, Quantitative 1892 H Puncture Site pCO2 pO2 HCO3 ABG pH ABG Total CO2 ABG O2 Saturation ABG Base Excess Luis Test ABG Potassium A-a O2 Difference Respiratory Index Sodium Chloride Glucose Lactate FiO2 Potassium Carbon Dioxide Anion Gap BUN Creatinine Est GFR ( Amer) Est GFR (Non-Af Amer) Random Glucose Calcium Total Bilirubin AST ALT Alkaline Phosphatase Troponin I NT-Pro-B Natriuret Pep Total Protein Albumin Globulin Albumin/Globulin Ratio Arterial Blood Potassium Attending/Attestation - Attestation I have personally seen and examined this patient.: Yes I have fully participated in the care of the patient.: Yes I have reviewed all pertinent clinical information: Yes Notes (Text): 01/12/18 18:22 Patient seen and examined, agree with above Symptoms as mentioned in HPI, dry cough, symptoms worse the past 2 weeks NYHA Class III symptoms, no active sob but reports difficulty climbing stairs in his home and with minimal activity. No orthopnea/PND Last echo from 2014 with preserved LV function P/E: pt actively coughing during encounter pulmonary exam with mild wheezing; cardiac exam with rrr, no crackles. f/u on echo, noted to have spiked fever in the ER - draw blood cx and sputum cx ; send for PCT and Influenza A/B Abx with Rocephin/Azithromycin CXR with NAPD; CT chest reviewed. Nephrology consulted with Dr Higuera for HD orders
[2018-01-12] MEDS ORDERED: guaiFENesin 200 mg/10 ml Syrup UD PO PRN (18:01)
[2018-01-12] MEDS ORDERED: cefTRIAXone IV 1 gm in Dextros 50 ML IVPB ONE (18:37)
[2018-01-12 19:25] LABS: CK-MB 0.41 ng/mL (0.0-3.38); TROPONIN I 0.31 ng/mL (0.00-0.120)
[2018-01-13 01:43] LABS: CK-MB 0.59 ng/mL (0.0-3.38); TROPONIN I 0.346 ng/mL (0.00-0.120)
[2018-01-13 08:25] LABS: BASO # 0.1 K/uL (0.0-0.2); EOS % 0.1 % (0.0-4.0); MEAN CORPUSCULAR HGB CONC 33.4 g/dL (33.0-37.0); NRBC % 0.1 % (0.0-2.0); RED CELL DISTRIBUTION WIDTH 16.5 % (11.5-14.5)
[2018-01-13 08:38] LABS: ALB/GLOB RATIO 1.1 (1.0-2.1); ALBUMIN 4.1 g/dL (3.5-5.0); CALCIUM 8.2 mg/dl (8.6-10.4)
[2018-01-13 08:40] LABS: INR 1.4; PROTHROMBIN TIME 16.4 SECONDS (9.7-12.2)
[2018-01-13 08:42] LABS: BASO % 0.7 % (0.0-2.0); HEMOGLOBIN 10.1 g/dL (12.0-18.0); LYMPH # 0.9 K/uL (1.0-4.3); LYMPH % 8.5 % (20.0-40.0); MEAN CELL VOLUME 98.5 fL (80.0-94.0); MEAN PLATELET VOLUME 9.9 fL (7.2-11.7); MONO # 1.7 K/uL (0.0-0.8); MONO % 16.2 % (0.0-10.0); NEUT # 7.6 K/uL (1.8-7.0); NEUT % 74.5 % (50.0-75.0); PLATELET COUNT 206 K/uL (130-400); RBC 3.08 Mil/uL (4.40-5.90); WHITE BLOOD COUNT 10.2 K/uL (4.8-10.8)
--- NOTE | 2018-01-13 09:51 | CP.PCM.CON ---
History of Present Illness - History of Present Illness History of Present Illness: 83 year old male with past medical history of CAD s/p CABG in 2015, ESRD on HD T ,Th, Sat, DL, A fib presented to hospital for cough. Patient states that he has had cough for a few days. In November, patient had revision of midline chest scar due to dehiscence. Since the reconstruction, patient has developed a non-productive cough. In past few days though, cough has worsened. Patient also complains of dyspnea on exertion (walking up flight of stairs) and even with mild daily activities for past few weeks. Patient complains of pain in his ribs due to persistent coughing. Denies having any CP with exertion, abd pain, N/V/D/C, F/C. Patient denies having any chest congestion. He does complain of chronic sinus congestion and clear rhinorrhea. Patient is usually seen in [facility] and has most of his cardiac work up there. Last echo on file here was in 2014 which was normal at the time. CT chest with contrast - no PE Pmhx: stated above PSHx: Appendectomy at age 19, Prostectomy 2001, Hernia repair 2003, Coronary Stent 2009, Thoracentesis 2015, CABG 2015, Aortic Valve replacement 2015, ablations in the past, Chest wall scar reconstruction 11/2017 FamHx: Father had [place], DM2; Mother had [place], DM2 Social: Never smoked; Non-drinker; No illicit drugs; Lives with at home Review of Systems - Review of Systems All systems: reviewed and no additional remarkable complaints except Review of Systems: as per HPI, other than that 10 point ROS negative Past Patient History - Infectious Disease Hx of Infectious Diseases: None - Past Medical History & Family History Past Medical History?: Yes - Past Social History Smoking Status: Never Smoked - CARDIAC Hx Cardiac Disorders: Yes Hx Atrial Fibrillation: Yes Hx Hypercholesterolemia: Yes Hx Hypertension: Yes - PULMONARY Hx Respiratory Disorders: Yes Other/Comment: left pleural effusion - NEUROLOGICAL Hx Neurological Disorder: No - HEENT Hx HEENT Problems: Yes Hx Cataracts: Yes (cataract surgery) - RENAL Date of Last Dialysis Treatment: 01/11/18 - ENDOCRINE/METABOLIC Hx Endocrine Disorders: No - HEMATOLOGICAL/ONCOLOGICAL Hx Blood Disorders: No Hx Blood Transfusions: Yes Hx Blood Transfusion Reaction: No - INTEGUMENTARY Hx Dermatological Problems: No - MUSCULOSKELETAL/RHEUMATOLOGICAL Hx Falls: No - GASTROINTESTINAL Hx Gastrointestinal Disorders: Yes Hx Constipation: Yes - GENITOURINARY/GYNECOLOGICAL Hx Genitourinary Disorders: Yes Hx Prostate Problems: Yes (removed at 67, 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.) - PSYCHIATRIC Hx Substance Use: No - SURGICAL HISTORY Hx Surgeries: Yes Hx Appendectomy: Yes Hx Coronary Artery Bypass Graft: Yes Hx Coronary Stent: Yes Other/Comment: left thumb surgery 17 years old - ANESTHESIA Hx Anesthesia: Yes Hx Anesthesia Reactions: No Hx Malignant Hyperthermia: No Has any member of the family had a problem w/ anesthesia?: No Meds Allergies/Adverse Reactions: Allergies Allergy/AdvReac Type Severity Reaction Status Date / Time morphine Allergy VOMITING Verified 01/12/18 11:00 - Medications Medications: Current Medications Acetaminophen (Tylenol 325mg Tab) 650 mg PO Q6 PRN PRN Reason: Fever >100.4 F Apixaban (Eliquis) 5 mg PO BID [facility] Last Admin: 01/12/18 21:38 Dose: Not Given Aspirin (Ecotrin) 81 mg PO DAILY [facility] Azithromycin (Zithromax) 500 mg PO DAILY [facility] PRN Reason: Protocol Last Admin: 01/12/18 18:45 Dose: 500 mg Benzonatate (Tessalon Perles) 200 mg PO TID PRN PRN Reason: Cough Cinacalcet (Sensipar) 30 mg PO DAILY [facility] Famotidine (Pepcid) 20 mg PO DAILY [facility] Guaifenesin (Robitussin) 200 mg PO Q4H PRN PRN Reason: Cough and congestion Ceftriaxone Sodium 1 gm/ (Sodium Chloride) 100 mls @ 100 mls/hr IVPB DAILY [facility] PRN Reason: Protocol Last Admin: 01/12/18 18:40 Dose: 100 mls/hr Losartan Potassium (Cozaar) 50 mg PO DAILY [facility] Metoprolol Tartrate (Lopressor) 25 mg PO BID [facility] Montelukast Sodium (Singulair) 10 mg PO DAILY [facility] Ondansetron HCl (Zofran Inj) 4 mg IVP Q6H PRN PRN Reason: Nausea/Vomiting Rosuvastatin Calcium (Crestor) 5 mg PO HS [facility] Last Admin: 01/12/18 22:30 Dose: Not Given Sevelamer Carbonate (Renvela) 800 mg PO TID [facility] Last Admin: 01/12/18 21:38 Dose: Not Given Physical Exam - Constitutional Appears: Chronically Ill - Head Exam Head Exam: ATRAUMATIC, NORMOCEPHALIC - Eye Exam Eye Exam: EOMI, PERRL - ENT Exam ENT Exam: Mucous Membranes Moist - Neck Exam Neck exam: Negative for: Lymphadenopathy - Respiratory Exam Respiratory Exam: Prolonged Expiratory Phase, Wheezes - Cardiovascular Exam Cardiovascular Exam: REGULAR RHYTHM, +S1, +S2 - GI/Abdominal Exam GI & Abdominal Exam: Soft. absent: Distended, Tenderness - Extremities Exam Extremities exam: Positive for: full ROM. Negative for: joint swelling, pedal edema - Neurological Exam Neurological exam: Alert, Oriented x3 - Psychiatric Exam Psychiatric exam: Normal Affect, Normal Mood - Skin Skin Exam: Dry, Warm Results - Vital Signs Recent Vital Signs: Last Vital Signs Temp 99.6 F 01/13/18 08:39 Pulse 97 H 01/13/18 08:39 Resp 20 01/13/18 08:39 BP 172/73 H 01/13/18 08:39 Pulse Ox 97 01/13/18 08:39 - Labs Result Diagrams: 01/13/18 08:11 01/13/18 08:11 Labs: Laboratory Results - last 24 hr 01/12/18 01/12/18 01/12/18 12:05 12:10 12:10 WBC 7.7 RBC 3.12 L Hgb 10.3 L Hct 30.7 L MCV 98.4 H D MCH 33.2 H MCHC 33.7 RDW 16.1 H Plt Count 212 MPV 8.9 Neut % (Auto) 78.3 H Lymph % (Auto) 8.2 L [place] % (Auto) 12.4 H Eos % (Auto) 0.1 Baso % (Auto) 1.0 Neut # (Auto) 6.0 Lymph # (Auto) 0.6 L [place] # (Auto) 1.0 H Eos # (Auto) 0.0 Baso # (Auto) 0.1 Neutrophils % (Manual) 79 H Band Neutrophils % 1 Lymphocytes % (Manual) 8 L Monocytes % (Manual) 12 H Platelet Estimate Normal Large Platelets Present Hypochromasia (manual) Slight Poikilocytosis (manual Slight Anisocytosis (manual) Slight Microcytosis (manual) Slight Target Cells Slight PT INR APTT D-Dimer, Quantitative Puncture Site Rra pCO2 34 L pO2 76 L HCO3 30.6 H ABG pH 7.55 H ABG Total CO2 30.7 H ABG O2 Saturation 97.3 ABG Base Excess 7.3 H Luis Test Po ABG Potassium 3.7 A-a O2 Difference 31.0 Respiratory Index 0.4 Sodium 140.0 141 Chloride 100.0 90 L Glucose 129 H Lactate 3.3 H FiO2 21.0 Potassium 4.3 Carbon Dioxide 29 Anion Gap 26 H BUN 28 H Creatinine 5.7 H Est GFR ( Amer) 12 Est GFR (Non-Af Amer) 10 Random Glucose 129 H Calcium 8.8 Total Bilirubin 0.8 AST 36 ALT 14 L D Alkaline Phosphatase 111 Total Creatine Kinase CK-MB (Mass) Troponin I 0.2330 H* NT-Pro-B Natriuret Pep 14644 H Total Protein 8.3 Albumin 4.4 Globulin 3.9 Albumin/Globulin Ratio 1.1 Triglycerides Cholesterol LDL Cholesterol Direct HDL Cholesterol Arterial Blood Potassium 3.7 Influenza Typ A,B (EIA) 01/12/18 01/12/18 01/12/18 12:10 18:35 21:50 WBC RBC Hgb Hct MCV MCH MCHC RDW Plt Count MPV Neut % (Auto) Lymph % (Auto) [place] % (Auto) Eos % (Auto) Baso % (Auto) Neut # (Auto) Lymph # (Auto) [place] # (Auto) Eos # (Auto) Baso # (Auto) Neutrophils % (Manual) Band Neutrophils % Lymphocytes % (Manual) Monocytes % (Manual) Platelet Estimate Large Platelets Hypochromasia (manual) Poikilocytosis (manual Anisocytosis (manual) Microcytosis (manual) Target Cells PT INR APTT D-Dimer, Quantitative 1892 H Puncture Site pCO2 pO2 HCO3 ABG pH ABG Total CO2 ABG O2 Saturation ABG Base Excess Luis Test ABG Potassium A-a O2 Difference Respiratory Index Sodium Chloride Glucose Lactate FiO2 Potassium Carbon Dioxide Anion Gap BUN Creatinine Est GFR ( Amer) Est GFR (Non-Af Amer) Random Glucose Calcium Total Bilirubin AST ALT Alkaline Phosphatase Total Creatine Kinase 96 CK-MB (Mass) 0.41 Troponin I 0.3100 H* NT-Pro-B Natriuret Pep Total Protein Albumin Globulin Albumin/Globulin Ratio Triglycerides Cholesterol LDL Cholesterol Direct HDL Cholesterol Arterial Blood Potassium Influenza Typ A,B (EIA) Negative for flu a/b 01/13/18 01/13/18 01/13/18 01:14 08:11 08:11 WBC 10.2 RBC 3.08 L Hgb 10.1 L Hct 30.3 L MCV 98.5 H MCH 33.0 H MCHC 33.4 RDW 16.5 H Plt Count 206 MPV 9.9 Neut % (Auto) 74.5 Lymph % (Auto) 8.5 L [place] % (Auto) 16.2 H Eos % (Auto) 0.1 Baso % (Auto) 0.7 Neut # (Auto) 7.6 H Lymph # (Auto) 0.9 L [place] # (Auto) 1.7 H Eos # (Auto) 0.0 Baso # (Auto) 0.1 Neutrophils % (Manual) Band Neutrophils % Lymphocytes % (Manual) Monocytes % (Manual) Platelet Estimate Large Platelets Hypochromasia (manual) Poikilocytosis (manual Anisocytosis (manual) Microcytosis (manual) Target Cells PT 16.4 H INR 1.4 APTT 28 D-Dimer, Quantitative Puncture Site pCO2 pO2 HCO3 ABG pH ABG Total CO2 ABG O2 Saturation ABG Base Excess Luis Test ABG Potassium A-a O2 Difference Respiratory Index Sodium Chloride Glucose Lactate FiO2 Potassium Carbon Dioxide Anion Gap BUN Creatinine Est GFR ( Amer) Est GFR (Non-Af Amer) Random Glucose Calcium Total Bilirubin AST ALT Alkaline Phosphatase Total Creatine Kinase 139 CK-MB (Mass) 0.59 Troponin I 0.3460 H* NT-Pro-B Natriuret Pep Total Protein Albumin Globulin Albumin/Globulin Ratio Triglycerides Cholesterol LDL Cholesterol Direct HDL Cholesterol Arterial Blood Potassium Influenza Typ A,B (EIA) 01/13/18 08:11 WBC RBC Hgb Hct MCV MCH MCHC RDW Plt Count MPV Neut % (Auto) Lymph % (Auto) [place] % (Auto) Eos % (Auto) Baso % (Auto) Neut # (Auto) Lymph # (Auto) [place] # (Auto) Eos # (Auto) Baso # (Auto) Neutrophils % (Manual) Band Neutrophils % Lymphocytes % (Manual) Monocytes % (Manual) Platelet Estimate Large Platelets Hypochromasia (manual) Poikilocytosis (manual Anisocytosis (manual) Microcytosis (manual) Target Cells PT INR APTT D-Dimer, Quantitative Puncture Site pCO2 pO2 HCO3 ABG pH ABG Total CO2 ABG O2 Saturation ABG Base Excess Luis Test ABG Potassium A-a O2 Difference Respiratory Index Sodium 137 Chloride 88 L Glucose Lactate FiO2 Potassium 5.0 Carbon Dioxide 27 Anion Gap 27 H BUN 45 H Creatinine 7.0 H Est GFR ( Amer) 9 Est GFR (Non-Af Amer) 8 Random Glucose 116 H Calcium 8.2 L Total Bilirubin 0.9 AST 71 H D ALT 37 Alkaline Phosphatase 80 Total Creatine Kinase CK-MB (Mass) Troponin I NT-Pro-B Natriuret Pep Total Protein 7.9 Albumin 4.1 Globulin 3.8 Albumin/Globulin Ratio 1.1 Triglycerides 114 Cholesterol 94 LDL Cholesterol Direct 34 HDL Cholesterol 26 L Arterial Blood Potassium Influenza Typ A,B (EIA) Assessment & Plan (1) Cough Status: Acute (2) ESRD (end stage renal disease) on dialysis Status: Chronic Priority: Medium (3) Atrial fibrillation, currently in sinus rhythm Status: Acute (4) HTN (hypertension) Status: Acute (5) CAD (coronary artery disease) Status: Chronic Priority: Medium (6) HLD (hyperlipidemia) Status: Chronic Priority: Medium - Assessment and Plan (Free Text) Plan: ? bronchitis CT chest negative for pE or infiltrates rec ABx HD today BP reasonable cough suppressant - Date & Time Date: 01/13/18 Time: 09:54
--- NOTE | 2018-01-13 10:06 | CP.PCM.PN ---
<Valeri Calhoun - Last Filed: 01/13/18 10:56> Subjective - Date & Time of Evaluation Date of Evaluation: 01/13/18 Time of Evaluation: 08:15 - Subjective Subjective: Patient seen and examined at bedside. Patient resting comfortably in bed complaining of continued cough and nausea. Patient says the cough is mostly dry but occasionally he coughs up "clear saliva". Patient says he does not have an appetitve for breakfast due to the nausea but denies vomiting. Also denies fever , chills, chest pain, SOB, palpitations, diarrhea, constipation, and calf pain/ swelling. Objective - Vital Signs/Intake and Output Vital Signs (last 24 hours): Temp Pulse Resp BP Pulse Ox 98.6 F 92 H 20 146/68 98 01/13/18 09:00 01/13/18 09:00 01/13/18 09:00 01/13/18 09:45 01/13/18 09:00 Intake and Output: 01/13/18 01/13/18 06:59 18:59 Intake Total 240 Output Total 50 Balance 190 - Medications Medications: Current Medications Acetaminophen (Tylenol 325mg Tab) 650 mg PO Q6 PRN PRN Reason: Fever >100.4 F Apixaban (Eliquis) 5 mg PO BID [facility] Last Admin: 01/12/18 21:38 Dose: Not Given Aspirin (Ecotrin) 81 mg PO DAILY [facility] Azithromycin (Zithromax) 500 mg PO DAILY [facility] PRN Reason: Protocol Last Admin: 01/12/18 18:45 Dose: 500 mg Benzonatate (Tessalon Perles) 200 mg PO TID PRN PRN Reason: Cough Cinacalcet (Sensipar) 30 mg PO DAILY [facility] Famotidine (Pepcid) 20 mg PO DAILY [facility] Guaifenesin (Robitussin) 200 mg PO Q4H PRN PRN Reason: Cough and congestion Ceftriaxone Sodium 1 gm/ (Sodium Chloride) 100 mls @ 100 mls/hr IVPB DAILY [facility] PRN Reason: Protocol Last Admin: 01/12/18 18:40 Dose: 100 mls/hr Losartan Potassium (Cozaar) 50 mg PO DAILY [facility] Metoprolol Tartrate (Lopressor) 25 mg PO BID [facility] Montelukast Sodium (Singulair) 10 mg PO DAILY [facility] Ondansetron HCl (Zofran Inj) 4 mg IVP Q6H PRN PRN Reason: Nausea/Vomiting Rosuvastatin Calcium (Crestor) 5 mg PO HS [facility] Last Admin: 01/12/18 22:30 Dose: Not Given Sevelamer Carbonate (Renvela) 800 mg PO TID [facility] Last Admin: 01/12/18 21:38 Dose: Not Given - Labs Labs: 01/13/18 08:11 01/13/18 08:11 PT 16.4 SECONDS (9.7-12.2) H 01/13/18 08:11 INR 1.4 01/13/18 08:11 APTT 28 SECONDS (21-34) 01/13/18 08:11 - Constitutional Appears: Non-toxic, No Acute Distress - Head Exam Head Exam: ATRAUMATIC, NORMAL INSPECTION, NORMOCEPHALIC - Eye Exam Eye Exam: EOMI, Normal appearance, PERRL - ENT Exam ENT Exam: Mucous Membranes Moist - Respiratory Exam Respiratory Exam: Wheezes (expiratory b/l ), NORMAL BREATHING PATTERN. absent: Accessory Muscle Use, Rales, Rhonchi, Respiratory Distress - Cardiovascular Exam Cardiovascular Exam: RRR, +S1, +S2, Murmur (systolic ejection murmur heard throughout all auscultory camarena ) - GI/Abdominal Exam GI & Abdominal Exam: Soft, Normal Bowel Sounds. absent: Distended, Tenderness - Extremities Exam Extremities Exam: Normal Inspection. absent: Calf Tenderness, Pedal Edema - Back Exam Back Exam: NORMAL INSPECTION - Neurological Exam Neurological Exam: Alert, Awake, Oriented x3 - Psychiatric Exam Psychiatric exam: Normal Affect, Normal Mood - Skin Skin Exam: Dry, Intact, Normal Color, Warm Assessment and Plan - Assessment and Plan (Free Text) Plan: Persistent cough * Likely secondary to CHF exacerbation (possibly due to history of aortic stenosis) vs. infectious etiology * Cardiology (Dr. Kirk) consulted, help appreciated * Troponins elevated (0.2330, 0.3100, 0.3460) * BNP: 26438 * D-dimer: 1892 * CTA: negative for PE * CXR: prominent interstitial markings * F/U Echo * Echo from 01/23/15 showed preserved ejection fraction with aortic stenosis * F/U Blood cultures and sputum cultures * Procal level Meds: * Tylenol prn for fevers * Zithromax 500 mg PO QD * Rocephin 1 g IV QD * Robitussin * Tessalon perls Anemia * Monitor H&H CAD s/p CABG * Continue home medications: Aspirin 81 mg po qd, Lopressor 25 mg po qd, cozaar 50 mg po qd * F/U HgbA1c * Lipid panel: Trig Elevated AST * Will monitor for now HLD * Continue home medication crestor ESRD on HD T, Th, S * [employer] Operator, 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; help appreciated * continue Renvela, Sensipar A fib * Continue home medication Eliquis 5 mg po bid Prophylaxis * Eliquis * Pepcid QD * Zofran prn nausea (give sparingly given prolonged QT seen on EKG) * Renal diet <Darian Chong - Last Filed: 01/13/18 12:22> Objective - Vital Signs/Intake and Output Vital Signs (last 24 hours): Temp Pulse Resp BP Pulse Ox 98.6 F 92 H 20 174/79 H 98 01/13/18 09:00 01/13/18 11:20 01/13/18 11:20 01/13/18 12:00 01/13/18 09:00 Intake and Output: 01/13/18 01/13/18 06:59 18:59 Intake Total 240 Output Total 50 Balance 190 - Medications Medications: Current Medications Acetaminophen (Tylenol 325mg Tab) 650 mg PO Q6 PRN PRN Reason: Fever >100.4 F Apixaban (Eliquis) 5 mg PO BID [facility] Last Admin: 01/13/18 10:00 Dose: Not Given Aspirin (Ecotrin) 81 mg PO DAILY [facility] Last Admin: 01/13/18 10:00 Dose: Not Given Azithromycin (Zithromax) 500 mg PO DAILY [facility] PRN Reason: Protocol Last Admin: 01/13/18 10:00 Dose: Not Given Benzonatate (Tessalon Perles) 200 mg PO TID PRN PRN Reason: Cough Cinacalcet (Sensipar) 30 mg PO DAILY [facility] Last Admin: 01/13/18 10:00 Dose: Not Given Famotidine (Pepcid) 20 mg PO DAILY [facility] Last Admin: 01/13/18 10:00 Dose: Not Given Guaifenesin (Robitussin) 200 mg PO Q4H PRN PRN Reason: Cough and congestion Ceftriaxone Sodium 1 gm/ (Sodium Chloride) 100 mls @ 100 mls/hr IVPB DAILY [facility] PRN Reason: Protocol Last Admin: 01/13/18 10:00 Dose: Not Given Losartan Potassium (Cozaar) 50 mg PO DAILY [facility] Last Admin: 01/13/18 10:00 Dose: Not Given Metoprolol Tartrate (Lopressor) 25 mg PO BID [facility] Last Admin: 01/13/18 10:00 Dose: Not Given Montelukast Sodium (Singulair) 10 mg PO DAILY [facility] Last Admin: 01/13/18 10:00 Dose: Not Given Ondansetron HCl (Zofran Inj) 4 mg IVP Q6H PRN PRN Reason: Nausea/Vomiting Rosuvastatin Calcium (Crestor) 5 mg PO HS [facility] Last Admin: 01/12/18 22:30 Dose: Not Given Sevelamer Carbonate (Renvela) 800 mg PO TID [facility] Last Admin: 01/13/18 10:00 Dose: Not Given - Labs Labs: 01/13/18 08:11 01/13/18 08:11 PT 16.4 SECONDS (9.7-12.2) H 01/13/18 08:11 INR 1.4 01/13/18 08:11 APTT 28 SECONDS (21-34) 01/13/18 08:11 Attending/Attestation - Attestation I have personally seen and examined this patient.: Yes I have fully participated in the care of the patient.: Yes I have reviewed all pertinent clinical information, including history, physical exam and plan: Yes Notes (Text): 01/13/18 12:14 Patient seen and examined. Agree with above Persistent cough, noted to have a fever of 100.4 last night pending blood cx report, sputum cx, PCT level. Continue with Abx and may de- escalate as necessary Currently in sinus rhythm, evidence of aortic systolic murmur. F/U on echo report No active chest pain, upward trend of troponin. No acute ischemic ekg changes appreciated. Will consult cardiology for their expert opinion. Further diagnostics, management and/or intervention as hospital course progresses.
[2018-01-13 11:02] LABS: BANDS 6 % (0-2); LYMPHOCYTE 11 % (20-40); MONOCYTE 15 % (0-10); NEUTROPHIL 68 % (50-75); TOTAL CELLS COUNTED 100
[2018-01-13 11:03] LABS: ANISOCYTOSIS SLIGHT; OVALOCYTES SLIGHT; PLATELET ESTIMATE NORMAL (NORMAL)
[2018-01-13 11:04] LABS: TEARDROP CELLS SLIGHT
--- NOTE | 2018-01-13 17:35 | CP.PCM.CON ---
History of Present Illness - History of Present Illness History of Present Illness: reason for consult: persistent cough 83-year-old male with history of coronary artery disease, status post CABG recently had revision of chest scar due to dehiscence was admitted with cough. Cough initially was nonproductive but now productive off frothy and clear phlegm associated with nasal congestion and rhinorrhea. Denies shortness of breath, denies fever chills, denies chest pain. patient had dialysis today PSHx: Appendectomy at age 19, Prostectomy 2001, Hernia repair 2003, Coronary Stent 2009, Thoracentesis 2015, CABG 2015, Aortic Valve replacement 2015, ablations in the past, Chest wall scar reconstruction 11/2017 Allergies: Morphine FamHx: Father had [place], DM2; Mother had [place], DM2 Social: Never smoked; Non-drinker; No illicit drugs; Lives with at home Review of Systems - Review of Systems All systems: reviewed and no additional remarkable complaints except ( persistent cough) Past Patient History - Infectious Disease Hx of Infectious Diseases: None - Past Medical History & Family History Past Medical History?: Yes - Past Social History Smoking Status: Never Smoked - CARDIAC Hx Cardiac Disorders: Yes Hx Atrial Fibrillation: Yes Hx Hypercholesterolemia: Yes Hx Hypertension: Yes - PULMONARY Hx Respiratory Disorders: Yes Other/Comment: left pleural effusion - NEUROLOGICAL Hx Neurological Disorder: No - HEENT Hx HEENT Problems: Yes Hx Cataracts: Yes (cataract surgery) - RENAL Date of Last Dialysis Treatment: 01/11/18 - ENDOCRINE/METABOLIC Hx Endocrine Disorders: No - HEMATOLOGICAL/ONCOLOGICAL Hx Blood Disorders: No Hx Blood Transfusions: Yes Hx Blood Transfusion Reaction: No - INTEGUMENTARY Hx Dermatological Problems: No - MUSCULOSKELETAL/RHEUMATOLOGICAL Hx Falls: No - GASTROINTESTINAL Hx Gastrointestinal Disorders: Yes Hx Constipation: Yes - GENITOURINARY/GYNECOLOGICAL Hx Genitourinary Disorders: Yes Hx Prostate Problems: Yes (removed at 67, 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.) - PSYCHIATRIC Hx Substance Use: No - SURGICAL HISTORY Hx Surgeries: Yes Hx Appendectomy: Yes Hx Coronary Artery Bypass Graft: Yes Hx Coronary Stent: Yes Other/Comment: left thumb surgery 17 years old - ANESTHESIA Hx Anesthesia: Yes Hx Anesthesia Reactions: No Hx Malignant Hyperthermia: No Has any member of the family had a problem w/ anesthesia?: No Meds Allergies/Adverse Reactions: Allergies Allergy/AdvReac Type Severity Reaction Status Date / Time morphine Allergy VOMITING Verified 01/12/18 11:00 - Medications Medications: Current Medications Acetaminophen (Tylenol 325mg Tab) 650 mg PO Q6 PRN PRN Reason: Fever >100.4 F Last Admin: 01/13/18 16:41 Dose: 650 mg Apixaban (Eliquis) 5 mg PO BID [facility] Last Admin: 01/13/18 10:00 Dose: Not Given Aspirin (Ecotrin) 81 mg PO DAILY [facility] Last Admin: 01/13/18 10:00 Dose: Not Given Azithromycin (Zithromax) 500 mg PO DAILY [facility] PRN Reason: Protocol Last Admin: 01/13/18 10:00 Dose: Not Given Cinacalcet (Sensipar) 30 mg PO DAILY [facility] Last Admin: 01/13/18 10:00 Dose: Not Given Famotidine (Pepcid) 20 mg PO DAILY [facility] Last Admin: 01/13/18 10:00 Dose: Not Given Fluticasone Propionate (Flonase) 1 spr NIKHIL DAILY [facility] Guaifenesin (Robitussin) 200 mg PO Q4H PRN PRN Reason: Cough and congestion Ceftriaxone Sodium 1 gm/ (Sodium Chloride) 100 mls @ 100 mls/hr IVPB DAILY [facility] PRN Reason: Protocol Last Admin: 01/13/18 10:00 Dose: Not Given Losartan Potassium (Cozaar) 50 mg PO DAILY [facility] Last Admin: 01/13/18 10:00 Dose: Not Given Metoprolol Tartrate (Lopressor) 25 mg PO BID [facility] Last Admin: 01/13/18 10:00 Dose: Not Given Montelukast Sodium (Singulair) 10 mg PO DAILY [facility] Last Admin: 01/13/18 10:00 Dose: Not Given Ondansetron HCl (Zofran Inj) 4 mg IVP Q6H PRN PRN Reason: Nausea/Vomiting Last Admin: 01/13/18 13:58 Dose: 4 mg Promethazine HCl/Dextromethorphan (Phenergan Dm Syrup) 5 ml PO Q6H PRN PRN Reason: Cough and congestion Rosuvastatin Calcium (Crestor) 5 mg PO HS [facility] Last Admin: 01/12/18 22:30 Dose: Not Given Sevelamer Carbonate (Renvela) 800 mg PO TID [facility] Last Admin: 01/13/18 14:01 Dose: Not Given Physical Exam - Head Exam Head Exam: ATRAUMATIC, NORMOCEPHALIC - Eye Exam Eye Exam: Normal appearance - ENT Exam ENT Exam: Mucous Membranes Moist - Neck Exam Neck exam: Positive for: Normal Inspection - Respiratory Exam Respiratory Exam: Clear to Auscultation Bilateral - Cardiovascular Exam Cardiovascular Exam: REGULAR RHYTHM - GI/Abdominal Exam GI & Abdominal Exam: Normal Bowel Sounds, Soft - Extremities Exam Extremities exam: Positive for: normal inspection - Neurological Exam Neurological exam: Alert, Oriented x3 Results - Vital Signs Recent Vital Signs: Last Vital Signs Temp 101.6 F H 01/13/18 16:41 Pulse 98 H 01/13/18 15:21 Resp 20 01/13/18 15:21 BP 143/72 01/13/18 15:21 Pulse Ox 98 01/13/18 15:21 - Labs Result Diagrams: 01/13/18 08:11 01/13/18 08:11 Labs: Laboratory Results - last 24 hr 01/12/18 01/12/18 01/13/18 18:35 21:50 01:14 WBC RBC Hgb Hct MCV MCH MCHC RDW Plt Count MPV Neut % (Auto) Lymph % (Auto) Dewey % (Auto) Eos % (Auto) Baso % (Auto) Neut # (Auto) Lymph # (Auto) Dewey # (Auto) Eos # (Auto) Baso # (Auto) Neutrophils % (Manual) Band Neutrophils % Lymphocytes % (Manual) Monocytes % (Manual) Platelet Estimate Anisocytosis (manual) Tear Drop Cells Ovalocytes PT INR APTT Sodium Potassium Chloride Carbon Dioxide Anion Gap BUN Creatinine Est GFR ( Amer) Est GFR (Non-Af Amer) Random Glucose Calcium Total Bilirubin AST ALT Alkaline Phosphatase Total Creatine Kinase 96 139 CK-MB (Mass) 0.41 0.59 Troponin I 0.3100 H* 0.3460 H* Total Protein Albumin Globulin Albumin/Globulin Ratio Triglycerides Cholesterol LDL Cholesterol Direct HDL Cholesterol Procalcitonin Influenza Typ A,B (EIA) Negative for flu a/b 01/13/18 01/13/18 01/13/18 08:11 08:11 08:11 WBC 10.2 RBC 3.08 L Hgb 10.1 L Hct 30.3 L MCV 98.5 H MCH 33.0 H MCHC 33.4 RDW 16.5 H Plt Count 206 MPV 9.9 Neut % (Auto) 74.5 Lymph % (Auto) 8.5 L Dewey % (Auto) 16.2 H Eos % (Auto) 0.1 Baso % (Auto) 0.7 Neut # (Auto) 7.6 H Lymph # (Auto) 0.9 L Dewey # (Auto) 1.7 H Eos # (Auto) 0.0 Baso # (Auto) 0.1 Neutrophils % (Manual) 68 Band Neutrophils % 6 H Lymphocytes % (Manual) 11 L Monocytes % (Manual) 15 H Platelet Estimate Normal Anisocytosis (manual) Slight Tear Drop Cells Slight Ovalocytes Slight PT 16.4 H INR 1.4 APTT 28 Sodium 137 Potassium 5.0 Chloride 88 L Carbon Dioxide 27 Anion Gap 27 H BUN 45 H Creatinine 7.0 H Est GFR ( Amer) 9 Est GFR (Non-Af Amer) 8 Random Glucose 116 H Calcium 8.2 L Total Bilirubin 0.9 AST 71 H D ALT 37 Alkaline Phosphatase 80 Total Creatine Kinase CK-MB (Mass) Troponin I Total Protein 7.9 Albumin 4.1 Globulin 3.8 Albumin/Globulin Ratio 1.1 Triglycerides 114 Cholesterol 94 LDL Cholesterol Direct 34 HDL Cholesterol 26 L Procalcitonin Influenza Typ A,B (EIA) 01/13/18 08:11 WBC RBC Hgb Hct MCV MCH MCHC RDW Plt Count MPV Neut % (Auto) Lymph % (Auto) Dewey % (Auto) Eos % (Auto) Baso % (Auto) Neut # (Auto) Lymph # (Auto) Dewey # (Auto) Eos # (Auto) Baso # (Auto) Neutrophils % (Manual) Band Neutrophils % Lymphocytes % (Manual) Monocytes % (Manual) Platelet Estimate Anisocytosis (manual) Tear Drop Cells Ovalocytes PT INR APTT Sodium Potassium Chloride Carbon Dioxide Anion Gap BUN Creatinine Est GFR ( Amer) Est GFR (Non-Af Amer) Random Glucose Calcium Total Bilirubin AST ALT Alkaline Phosphatase Total Creatine Kinase CK-MB (Mass) Troponin I Total Protein Albumin Globulin Albumin/Globulin Ratio Triglycerides Cholesterol LDL Cholesterol Direct HDL Cholesterol Procalcitonin 2.08 H Influenza Typ A,B (EIA) Assessment & Plan - Assessment and Plan (Free Text) Assessment: 83-year-old male admitted with cough for the past few months initially dry and now productive off clear phlegm. Also complaining of sinus congestion and rhinorrhea Rule out cough secondary to postnasal drip/upper airway cough syndrome CAT scan of the sinuses Phenergan DM Steroid nasal spray Short course off IV steroids Continue azithromycin
--- NOTE | 2018-01-13 17:36 | CP.PCM.CON ---
History of Present Illness - History of Present Illness History of Present Illness: 83 yo male wqith h/o CAD, s/p CABG x 3 and AVR in 2016;PAF s/p PVI ablation in 2015 and repeat ablaton of the LA posterior 2wall and atrial tachycardia ablation in 10/2017; was on amiodarone post ablation, but has been stopped as maintained SR; sternotomy wound revision in 10/2017; chronic cough, ENT work-up negative; presents to [facility] with worsening cough/dyspnea and today fever. States tolerated HD two days ago without issues. Denies chest pain/palpitations/ diaphoresis Review of Systems - Review of Systems All systems: reviewed and no additional remarkable complaints except Review of Systems: all others negative except HPI Past Patient History - Infectious Disease Hx of Infectious Diseases: None - Past Medical History & Family History Past Medical History?: Yes - Past Social History Smoking Status: Never Smoked - CARDIAC Hx Cardiac Disorders: Yes (CABG/AVR 2015) Hx Atrial Fibrillation: Yes (s/p PVI ablation 2015, posterior LA ablation and Atach ablaton 10/2017) Hx Hypercholesterolemia: Yes Hx Hypertension: Yes - PULMONARY Hx Respiratory Disorders: Yes Other/Comment: left pleural effusion - NEUROLOGICAL Hx Neurological Disorder: No - HEENT Hx HEENT Problems: Yes Hx Cataracts: Yes (cataract surgery) - RENAL Date of Last Dialysis Treatment: 01/11/18 - ENDOCRINE/METABOLIC Hx Endocrine Disorders: No - HEMATOLOGICAL/ONCOLOGICAL Hx Blood Disorders: No Hx Blood Transfusions: Yes Hx Blood Transfusion Reaction: No - INTEGUMENTARY Hx Dermatological Problems: No - MUSCULOSKELETAL/RHEUMATOLOGICAL Hx Falls: No - GASTROINTESTINAL Hx Gastrointestinal Disorders: Yes Hx Constipation: Yes - GENITOURINARY/GYNECOLOGICAL Hx Genitourinary Disorders: Yes Hx Prostate Problems: Yes (removed at 67, 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.) - PSYCHIATRIC Hx Substance Use: No - SURGICAL HISTORY Hx Surgeries: Yes Hx Appendectomy: Yes Hx Coronary Artery Bypass Graft: Yes Hx Coronary Stent: Yes Other/Comment: left thumb surgery 17 years old - ANESTHESIA Hx Anesthesia: Yes Hx Anesthesia Reactions: No Hx Malignant Hyperthermia: No Has any member of the family had a problem w/ anesthesia?: No Meds Allergies/Adverse Reactions: Allergies Allergy/AdvReac Type Severity Reaction Status Date / Time morphine Allergy VOMITING Verified 01/12/18 11:00 - Medications Medications: Current Medications Acetaminophen (Tylenol 325mg Tab) 650 mg PO Q6 PRN PRN Reason: Fever >100.4 F Last Admin: 01/13/18 16:41 Dose: 650 mg Apixaban (Eliquis) 5 mg PO BID [facility] Last Admin: 01/13/18 10:00 Dose: Not Given Aspirin (Ecotrin) 81 mg PO DAILY [facility] Last Admin: 01/13/18 10:00 Dose: Not Given Azithromycin (Zithromax) 500 mg PO DAILY [facility] PRN Reason: Protocol Last Admin: 01/13/18 10:00 Dose: Not Given Cinacalcet (Sensipar) 30 mg PO DAILY [facility] Last Admin: 01/13/18 10:00 Dose: Not Given Famotidine (Pepcid) 20 mg PO DAILY [facility] Last Admin: 01/13/18 10:00 Dose: Not Given Guaifenesin (Robitussin) 200 mg PO Q4H PRN PRN Reason: Cough and congestion Ceftriaxone Sodium 1 gm/ (Sodium Chloride) 100 mls @ 100 mls/hr IVPB DAILY [facility] PRN Reason: Protocol Last Admin: 01/13/18 10:00 Dose: Not Given Losartan Potassium (Cozaar) 50 mg PO DAILY [facility] Last Admin: 01/13/18 10:00 Dose: Not Given Metoprolol Tartrate (Lopressor) 25 mg PO BID [facility] Last Admin: 01/13/18 10:00 Dose: Not Given Montelukast Sodium (Singulair) 10 mg PO DAILY [facility] Last Admin: 01/13/18 10:00 Dose: Not Given Ondansetron HCl (Zofran Inj) 4 mg IVP Q6H PRN PRN Reason: Nausea/Vomiting Last Admin: 01/13/18 13:58 Dose: 4 mg Promethazine HCl/Dextromethorphan (Phenergan Dm Syrup) 5 ml PO Q6H PRN PRN Reason: Cough and congestion Rosuvastatin Calcium (Crestor) 5 mg PO HS [facility] Last Admin: 01/12/18 22:30 Dose: Not Given Sevelamer Carbonate (Renvela) 800 mg PO TID [facility] Last Admin: 01/13/18 14:01 Dose: Not Given Physical Exam - Constitutional Appears: Well - Head Exam Head Exam: ATRAUMATIC, NORMOCEPHALIC - Eye Exam Eye Exam: EOMI, Normal appearance, PERRL - Neck Exam Neck exam: Positive for: Full Rom. Negative for: Lymphadenopathy - Respiratory Exam Respiratory Exam: NORMAL BREATHING PATTERN Additional comments: Faint bibasilar crckles - Cardiovascular Exam Cardiovascular Exam: REGULAR RHYTHM, RRR, +S1, +S2. absent: JVD - GI/Abdominal Exam GI & Abdominal Exam: Normal Bowel Sounds, Soft, Tenderness - Extremities Exam Extremities exam: Negative for: calf tenderness, pedal edema, tenderness - Neurological Exam Neurological exam: Alert, CN II-XII Intact - Psychiatric Exam Psychiatric exam: Normal Affect, Normal Mood - Skin Skin Exam: Dry, Normal Color, Warm Results - Vital Signs Recent Vital Signs: Last Vital Signs Temp 101.6 F H 01/13/18 16:41 Pulse 98 H 01/13/18 15:21 Resp 20 01/13/18 15:21 BP 143/72 01/13/18 15:21 Pulse Ox 98 01/13/18 15:21 - Labs Result Diagrams: 01/13/18 08:11 01/13/18 08:11 Labs: Laboratory Results - last 24 hr 01/12/18 01/12/18 01/13/18 18:35 21:50 01:14 WBC RBC Hgb Hct MCV MCH MCHC RDW Plt Count MPV Neut % (Auto) Lymph % (Auto) [place] % (Auto) Eos % (Auto) Baso % (Auto) Neut # (Auto) Lymph # (Auto) [place] # (Auto) Eos # (Auto) Baso # (Auto) Neutrophils % (Manual) Band Neutrophils % Lymphocytes % (Manual) Monocytes % (Manual) Platelet Estimate Anisocytosis (manual) Tear Drop Cells Ovalocytes PT INR APTT Sodium Potassium Chloride Carbon Dioxide Anion Gap BUN Creatinine Est GFR ( Amer) Est GFR (Non-Af Amer) Random Glucose Calcium Total Bilirubin AST ALT Alkaline Phosphatase Total Creatine Kinase 96 139 CK-MB (Mass) 0.41 0.59 Troponin I 0.3100 H* 0.3460 H* Total Protein Albumin Globulin Albumin/Globulin Ratio Triglycerides Cholesterol LDL Cholesterol Direct HDL Cholesterol Procalcitonin Influenza Typ A,B (EIA) Negative for flu a/b 01/13/18 01/13/18 01/13/18 08:11 08:11 08:11 WBC 10.2 RBC 3.08 L Hgb 10.1 L Hct 30.3 L MCV 98.5 H MCH 33.0 H MCHC 33.4 RDW 16.5 H Plt Count 206 MPV 9.9 Neut % (Auto) 74.5 Lymph % (Auto) 8.5 L [place] % (Auto) 16.2 H Eos % (Auto) 0.1 Baso % (Auto) 0.7 Neut # (Auto) 7.6 H Lymph # (Auto) 0.9 L [place] # (Auto) 1.7 H Eos # (Auto) 0.0 Baso # (Auto) 0.1 Neutrophils % (Manual) 68 Band Neutrophils % 6 H Lymphocytes % (Manual) 11 L Monocytes % (Manual) 15 H Platelet Estimate Normal Anisocytosis (manual) Slight Tear Drop Cells Slight Ovalocytes Slight PT 16.4 H INR 1.4 APTT 28 Sodium 137 Potassium 5.0 Chloride 88 L Carbon Dioxide 27 Anion Gap 27 H BUN 45 H Creatinine 7.0 H Est GFR ( Amer) 9 Est GFR (Non-Af Amer) 8 Random Glucose 116 H Calcium 8.2 L Total Bilirubin 0.9 AST 71 H D ALT 37 Alkaline Phosphatase 80 Total Creatine Kinase CK-MB (Mass) Troponin I Total Protein 7.9 Albumin 4.1 Globulin 3.8 Albumin/Globulin Ratio 1.1 Triglycerides 114 Cholesterol 94 LDL Cholesterol Direct 34 HDL Cholesterol 26 L Procalcitonin Influenza Typ A,B (EIA) 01/13/18 08:11 WBC RBC Hgb Hct MCV MCH MCHC RDW Plt Count MPV Neut % (Auto) Lymph % (Auto) [place] % (Auto) Eos % (Auto) Baso % (Auto) Neut # (Auto) Lymph # (Auto) [place] # (Auto) Eos # (Auto) Baso # (Auto) Neutrophils % (Manual) Band Neutrophils % Lymphocytes % (Manual) Monocytes % (Manual) Platelet Estimate Anisocytosis (manual) Tear Drop Cells Ovalocytes PT INR APTT Sodium Potassium Chloride Carbon Dioxide Anion Gap BUN Creatinine Est GFR ( Amer) Est GFR (Non-Af Amer) Random Glucose Calcium Total Bilirubin AST ALT Alkaline Phosphatase Total Creatine Kinase CK-MB (Mass) Troponin I Total Protein Albumin Globulin Albumin/Globulin Ratio Triglycerides Cholesterol LDL Cholesterol Direct HDL Cholesterol Procalcitonin 2.08 H Influenza Typ A,B (EIA) - EKG Data EKG comments: NSR, no acute ST-T changes Assessment & Plan (1) CAD (coronary artery disease) Assessment and Plan: Stable CAD, s/p CABG and AVR 2016 mild troponin elevation is likely due to sinus tachycardia, related to fever and ESRD on HD Cont with current meds Status: Chronic Priority: Medium (2) History of atrial fibrillation Assessment and Plan: Currently in NSR Cont with apixaban for stroke prevention Status: Chronic Priority: Medium (3) Cough Assessment and Plan: Patient has had chronic cough, negative ENT work-up documented in our outpatient office Worsening cough this admission, now with fever Possible URi/bronchitis Cont with abx Follow Cx Status: Acute (4) Fever Assessment and Plan: Started on abx Tylenol for fever Follow up blood cultures in view of bio AVR Status: Acute
[2018-01-13] MEDS: Fluticasone Nasal 50 mcg/Spray NAS SCH (19:01)
[2018-01-13] MEDS: Promethazine DM 6.25 mg-15 mg/5 ml Syrup PO PRN (21:21)
[2018-01-13] MEDS: MethylPREDNISolone 40 mg Vial IV SCH (22:00)
--- NOTE | 2018-01-14 08:27 | CP.PCM.PN ---
<Valeri Calhoun - Last Filed: 01/14/18 10:53> Subjective - Date & Time of Evaluation Date of Evaluation: 01/14/18 Time of Evaluation: 08:23 - Subjective Subjective: Patient seen and examined at bedside. Patient resting comfortably in bed with no new complaints at this time. Patient says he is feeling much better than he did yesterday morning however he is having a persistent dry cough. Patient says he is no longer nauseous and his appetite is improving. Patient had dialysis yesterday which went well but he says his left arm was shaking until dialysis was finished. He says he hasnt noticed any weakness numbness or additional tremors since dialysis finished yesterday. He denies fever, chills, headache, chest pain, SOB, palpitations, abdominal pain, n/v/d/c, and calf tenderness. Objective - Vital Signs/Intake and Output Vital Signs (last 24 hours): Temp Pulse Resp BP Pulse Ox 97.3 F L 72 20 138/63 100 01/14/18 08:18 01/14/18 08:18 01/14/18 08:18 01/14/18 08:18 01/14/18 08:18 Intake and Output: 01/14/18 01/14/18 06:59 18:59 Intake Total 300 Balance 300 - Medications Medications: Current Medications Acetaminophen (Tylenol 325mg Tab) 650 mg PO Q6 PRN PRN Reason: Fever >100.4 F Last Admin: 01/13/18 16:41 Dose: 650 mg Apixaban (Eliquis) 5 mg PO BID [facility] Last Admin: 01/13/18 18:54 Dose: 5 mg Aspirin (Ecotrin) 81 mg PO DAILY [facility] Last Admin: 01/13/18 10:00 Dose: Not Given Azithromycin (Zithromax) 500 mg PO DAILY [facility] PRN Reason: Protocol Last Admin: 01/13/18 20:19 Dose: 500 mg Cinacalcet (Sensipar) 30 mg PO DAILY [facility] Last Admin: 01/13/18 10:00 Dose: Not Given Famotidine (Pepcid) 20 mg PO DAILY [facility] Last Admin: 01/13/18 10:00 Dose: Not Given Fluticasone Propionate (Flonase) 1 spr NIKHIL DAILY [facility] Last Admin: 01/13/18 19:01 Dose: 1 spr Guaifenesin (Robitussin) 200 mg PO Q4H PRN PRN Reason: Cough and congestion Ceftriaxone Sodium (Rocephin Iv 1 Gm Duplex) 50 mls @ 100 mls/hr IVPB DAILY [facility] PRN Reason: Protocol Losartan Potassium (Cozaar) 50 mg PO DAILY [facility] Last Admin: 01/13/18 10:00 Dose: Not Given Methylprednisolone (Solu-Medrol) 40 mg IV Q12 [facility] Last Admin: 01/13/18 22:00 Dose: 40 mg Metoprolol Tartrate (Lopressor) 25 mg PO BID [facility] Last Admin: 01/13/18 18:56 Dose: 25 mg Montelukast Sodium (Singulair) 10 mg PO DAILY [facility] Last Admin: 01/13/18 10:00 Dose: Not Given Ondansetron HCl (Zofran Inj) 4 mg IVP Q6H PRN PRN Reason: Nausea/Vomiting Last Admin: 01/13/18 13:58 Dose: 4 mg Promethazine HCl/Dextromethorphan (Phenergan Dm Syrup) 5 ml PO Q6H PRN PRN Reason: Cough and congestion Last Admin: 01/13/18 21:21 Dose: 5 ml Rosuvastatin Calcium (Crestor) 5 mg PO HS [facility] Last Admin: 01/13/18 21:21 Dose: Not Given Sevelamer Carbonate (Renvela) 800 mg PO TID [facility] Last Admin: 01/13/18 19:00 Dose: Not Given - Labs Labs: 01/13/18 08:11 01/13/18 08:11 PT 16.4 SECONDS (9.7-12.2) H 01/13/18 08:11 INR 1.4 01/13/18 08:11 APTT 28 SECONDS (21-34) 01/13/18 08:11 - Constitutional Appears: Non-toxic, No Acute Distress - Head Exam Head Exam: ATRAUMATIC, NORMAL INSPECTION, NORMOCEPHALIC - Eye Exam Eye Exam: EOMI, Normal appearance, PERRL Pupil Exam: NORMAL ACCOMODATION - ENT Exam ENT Exam: Mucous Membranes Moist - Neck Exam Neck Exam: Full ROM, Normal Inspection. absent: Lymphadenopathy - Respiratory Exam Respiratory Exam: Clear to Ausculation Bilateral, NORMAL BREATHING PATTERN - Cardiovascular Exam Cardiovascular Exam: REGULAR RHYTHM, +S1, +S2, Murmur (systolic ejection murmur ). absent: Bradycardia, Tachycardia - GI/Abdominal Exam GI & Abdominal Exam: Soft, Normal Bowel Sounds. absent: Distended, Tenderness - Extremities Exam Extremities Exam: Normal Inspection. absent: Calf Tenderness, Pedal Edema - Back Exam Back Exam: NORMAL INSPECTION - Neurological Exam Neurological Exam: Alert, Awake, Oriented x3 - Psychiatric Exam Psychiatric exam: Normal Affect, Normal Mood - Skin Skin Exam: Dry, Intact, Normal Color, Warm Assessment and Plan - Assessment and Plan (Free Text) Plan: Persistent cough * Likely secondary to CHF exacerbation (possibly due to history of aortic stenosis) vs. infectious etiology * Cardiology (Dr. Kirk) consulted, help appreciated * Pulmonology consulted (Dr. Cyr), help appreciated * CT sinuses: Mild sinuses mucosal thickening noted at the ethmoid maxillary and sphenoid sinuses without evidence of air-fluid level to suggest acute sinusitis. Slight nasal septum deviation to the right. * Troponins elevated (0.2330, 0.3100, 0.3460) * BNP: 11531 * D-dimer: 1892 * CTA: negative for PE * CXR: prominent interstitial markings * F/U Echo * Echo from 01/23/15 showed preserved ejection fraction with aortic stenosis * F/U Blood cultures and sputum cultures * Procal level 2.08 Meds: * Tylenol prn for fevers * Zithromax 500 mg PO QD * Rocephin 1 g IV QD * Robitussin * Tessalon perls * Fluticasone nasal spray * Solumedrol 40 mg IV Q12 * Promethazine DM Q6H PRN Anemia * Monitor H&H CAD s/p CABG * Continue home medications: Aspirin 81 mg po qd, Lopressor 25 mg po qd, cozaar 50 mg po qd * HgbA1c 5.4 * Lipid panel: Trig 114, Chol 94, LDL 34, HDL 26 Transaminitis * Trending up * Will monitor for now HLD * Continue home medication crestor 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; help appreciated * continue Renvela, Sensipar A fib * Continue home medication Eliquis 5 mg po bid Prophylaxis * Eliquis * Pepcid QD * Zofran prn nausea (give sparingly given prolonged QT seen on EKG) * Renal diet <Darian Chong - Last Filed: 01/14/18 12:21> Objective - Vital Signs/Intake and Output Vital Signs (last 24 hours): Temp Pulse Resp BP Pulse Ox 97.3 F L 79 20 166/77 H 100 01/14/18 08:18 01/14/18 10:15 01/14/18 08:18 01/14/18 10:17 01/14/18 08:18 Intake and Output: 01/14/18 01/14/18 06:59 18:59 Intake Total 300 Balance 300 - Medications Medications: Current Medications Acetaminophen (Tylenol 325mg Tab) 650 mg PO Q6 PRN PRN Reason: Fever >100.4 F Last Admin: 01/13/18 16:41 Dose: 650 mg Apixaban (Eliquis) 5 mg PO BID [facility] Last Admin: 01/14/18 10:22 Dose: 5 mg Aspirin (Ecotrin) 81 mg PO DAILY [facility] Last Admin: 01/14/18 11:55 Dose: 81 mg Azithromycin (Zithromax) 500 mg PO DAILY [facility] PRN Reason: Protocol Last Admin: 01/14/18 11:55 Dose: 500 mg Cinacalcet (Sensipar) 30 mg PO DAILY [facility] Last Admin: 01/14/18 11:55 Dose: 30 mg Famotidine (Pepcid) 20 mg PO DAILY [facility] Last Admin: 01/14/18 11:55 Dose: 20 mg Fluticasone Propionate (Flonase) 1 spr NIKHIL DAILY [facility] Last Admin: 01/14/18 10:18 Dose: 1 spr Guaifenesin (Robitussin) 200 mg PO Q4H PRN PRN Reason: Cough and congestion Ceftriaxone Sodium (Rocephin Iv 1 Gm Duplex) 50 mls @ 100 mls/hr IVPB DAILY [facility] PRN Reason: Protocol Last Admin: 01/14/18 11:55 Dose: 100 mls/hr Losartan Potassium (Cozaar) 50 mg PO DAILY [facility] Last Admin: 01/14/18 10:17 Dose: 50 mg Methylprednisolone (Solu-Medrol) 40 mg IV Q12 [facility] Last Admin: 01/14/18 10:22 Dose: 40 mg Metoprolol Tartrate (Lopressor) 25 mg PO BID [facility] Last Admin: 01/14/18 10:17 Dose: 25 mg Montelukast Sodium (Singulair) 10 mg PO DAILY [facility] Last Admin: 01/14/18 10:18 Dose: 10 mg Ondansetron HCl (Zofran Inj) 4 mg IVP Q6H PRN PRN Reason: Nausea/Vomiting Last Admin: 01/13/18 13:58 Dose: 4 mg Promethazine HCl/Dextromethorphan (Phenergan Dm Syrup) 5 ml PO Q6H PRN PRN Reason: Cough and congestion Last Admin: 01/14/18 10:18 Dose: 5 ml Rosuvastatin Calcium (Crestor) 5 mg PO HS [facility] Last Admin: 01/13/18 21:21 Dose: Not Given Sevelamer Carbonate (Renvela) 800 mg PO TID [facility] Last Admin: 01/14/18 10:17 Dose: 800 mg - Labs Labs: 01/14/18 08:42 01/14/18 08:42 PT 16.4 SECONDS (9.7-12.2) H 01/13/18 08:11 INR 1.4 01/13/18 08:11 APTT 28 SECONDS (21-34) 01/13/18 08:11 Attending/Attestation - Attestation I have personally seen and examined this patient.: Yes I have fully participated in the care of the patient.: Yes I have reviewed all pertinent clinical information, including history, physical exam and plan: Yes Notes (Text): Patient seen and examined. Agree with above Cardiology consultation appreciated for elevation of troponins - thought to be attributed to non-ischemic causes and underlying ESRD. No further intervention Pulmonary consultation appreciated. CT sinuses showing no acute pathology or sinusitis. Started on steroid nasal spray and short course of iv steroids for patient's persistent cough. Continue with Phenergan DM Patient spiked fever once again yesterday with 101.6F. Pending blood cx and sputum cx reports. Continue with Abx Mild clinical improvement, states he feels better. Had HD session yesterday with no issues reported. Pending echo report
[2018-01-14 08:52] LABS: BASO % 0.6 % (0.0-2.0); EOS % 0.1 % (0.0-4.0); HEMOGLOBIN 10.7 g/dL (12.0-18.0); LYMPH # 0.9 K/uL (1.0-4.3); LYMPH % 12.1 % (20.0-40.0); MEAN CELL VOLUME 98.2 fL (80.0-94.0); MEAN CORPUSCULAR HGB CONC 33.6 g/dL (33.0-37.0); MEAN PLATELET VOLUME 10.3 fL (7.2-11.7); MONO # 0.4 K/uL (0.0-0.8); MONO % 5.2 % (0.0-10.0); NEUT # 6.4 K/uL (1.8-7.0); NRBC % 0.1 % (0.0-2.0); RBC 3.24 Mil/uL (4.40-5.90); RED CELL DISTRIBUTION WIDTH 15.9 % (11.5-14.5); WHITE BLOOD COUNT 7.8 K/uL (4.8-10.8)
[2018-01-14 09:11] LABS: ALB/GLOB RATIO 1.1 (1.0-2.1); CALCIUM 8.6 mg/dl (8.6-10.4)
[2018-01-14] MEDS: Promethazine DM 6.25 mg-15 mg/5 ml Syrup PO PRN (10:18)
[2018-01-14] MEDS: Fluticasone Nasal 50 mcg/Spray NAS SCH (10:18)
[2018-01-14] MEDS: MethylPREDNISolone 40 mg Vial IV SCH ×2 (10:22→21:51)
--- NOTE | 2018-01-14 10:36 | CT ---
PROCEDURE: CT SINUSES WITHOUT CONTRAST HISTORY: PERSISTENT COUGH, SINUS CONGESTION COMPARISON: None TECHNIQUE: Contiguous axial CT images of the paranasal sinuses were obtained. Coronal and sagittal reformats were generated. Radiation dose: Total exam DLP = 644 0.12 mGy-cm. This CT exam was performed using one or more of the following dose reduction techniques: Automated exposure control, adjustment of the mA and/or kV according to patient size, and/or use of iterative reconstruction technique. FINDINGS: FRONTAL SINUSES: No evidence of significant mucosal thickening. ETHMOID SINUSES: Mild mucosal thickening is noted in the ethmoidal sinuses SPHENOID SINUSES: Mild mucosal thickening is noted in the sphenoid sinuses. MAXILLARY SINUSES: Mild mucosal thickening is noted at the left more than right maxillary sinuses SINUS DRAINAGE: Osteomeatal complexes, frontal recesses and sphenoethmoid recesses clear. NASAL SEPTUM: Slight nasal septum deviation to the right is noted. MASS: None. SKULL BASE: Unremarkable. TEMPORAL BONES: Middle ears and mastoid grossly unremarkable. OTHER FINDINGS: None. IMPRESSION: Mild sinuses mucosal thickening noted at the ethmoid maxillary and sphenoid sinuses without evidence of air-fluid level to suggest acute sinusitis. Slight nasal septum deviation to the right.
[2018-01-14] MEDS: cefTRIAXone IV 1 gm in Dextros 50 ML IVPB SCH (11:55)
[2018-01-15 06:45] LABS: BASO % 0.1 % (0.0-2.0); HEMOGLOBIN 10.3 g/dL (12.0-18.0); LYMPH # 1.1 K/uL (1.0-4.3); MEAN CELL VOLUME 97.1 fL (80.0-94.0); MEAN CORPUSCULAR HEMOGLOBIN 32.5 pg (27.0-31.0); MEAN CORPUSCULAR HGB CONC 33.5 g/dL (33.0-37.0); MEAN PLATELET VOLUME 10.5 fL (7.2-11.7); MONO # 0.5 K/uL (0.0-0.8); MONO % 3.8 % (0.0-10.0); NEUT % 87.1 % (50.0-75.0); NRBC % 0.7 % (0.0-2.0); PLATELET COUNT 165 K/uL (130-400); RBC 3.18 Mil/uL (4.40-5.90); RED CELL DISTRIBUTION WIDTH 16.2 % (11.5-14.5); WHITE BLOOD COUNT 12.6 K/uL (4.8-10.8)
[2018-01-15 08:22] LABS: ALB/GLOB RATIO 1.2 (1.0-2.1); ALBUMIN 3.9 g/dL (3.5-5.0); CALCIUM 8.2 mg/dl (8.6-10.4)
[2018-01-15 08:27] LABS: BANDS 9 % (0-2); LYMPHOCYTE 7 % (20-40); MONOCYTE 5 % (0-10); NEUTROPHIL 79 % (50-75); NUCLEATED RED BLOOD CELL 1 % (0-0); PLATELET ESTIMATE NORMAL (NORMAL); TOTAL CELLS COUNTED 100
[2018-01-15 08:28] LABS: ANISOCYTOSIS SLIGHT; LARGE PLATELETS PRESENT; OVALOCYTES SLIGHT
[2018-01-15] MEDS: Fluticasone Nasal 50 mcg/Spray NAS SCH (10:18)
[2018-01-15] MEDS: MethylPREDNISolone 40 mg Vial IV SCH ×2 (10:18→21:39)
[2018-01-15] MEDS: cefTRIAXone IV 1 gm in Dextros 50 ML IVPB SCH (10:19)
--- NOTE | 2018-01-15 10:47 | CP.PCM.PN ---
<Winifred Lewis - Last Filed: 01/15/18 16:28> Subjective - Date & Time of Evaluation Date of Evaluation: 01/15/18 Time of Evaluation: 07:00 - Subjective Subjective: PGY1- Medicine Note for Dr. Horn Patient seen and examined at bedside and in no acute distress. Patient still coughing. Patient admits to straining during his bowel movement this morning and seeing a small streak of bright red blood. Patient had some mild abdominal pain this morning that resolved. Patient also admits to nausea in the mornings sometimes that resolves on its own. Patient denies any headache, shortness of breath, or chest pain. Objective - Vital Signs/Intake and Output Vital Signs (last 24 hours): Temp Pulse Resp BP Pulse Ox 97.7 F 66 20 157/66 H 97 01/15/18 07:56 01/15/18 10:16 01/15/18 10:16 01/15/18 10:28 01/15/18 10:16 Intake and Output: 01/15/18 01/15/18 06:59 18:59 Intake Total 320 Balance 320 - Medications Medications: Current Medications Acetaminophen (Tylenol 325mg Tab) 650 mg PO Q6 PRN PRN Reason: Fever >100.4 F Last Admin: 01/13/18 16:41 Dose: 650 mg Apixaban (Eliquis) 5 mg PO BID [facility] Last Admin: 01/14/18 21:49 Dose: 5 mg Aspirin (Ecotrin) 81 mg PO DAILY [facility] Last Admin: 01/14/18 11:55 Dose: 81 mg Azithromycin (Zithromax) 500 mg PO DAILY [facility] PRN Reason: Protocol Last Admin: 01/15/18 10:28 Dose: 500 mg Cinacalcet (Sensipar) 30 mg PO DAILY [facility] Last Admin: 01/14/18 11:55 Dose: 30 mg Famotidine (Pepcid) 20 mg PO DAILY [facility] Last Admin: 01/15/18 10:28 Dose: 20 mg Fluticasone Propionate (Flonase) 1 spr NIKHIL DAILY [facility] Last Admin: 01/15/18 10:18 Dose: 1 spr Guaifenesin (Robitussin) 200 mg PO Q4H PRN PRN Reason: Cough and congestion Ceftriaxone Sodium (Rocephin Iv 1 Gm Duplex) 50 mls @ 100 mls/hr IVPB DAILY [facility] PRN Reason: Protocol Last Admin: 01/15/18 10:19 Dose: 100 mls/hr Losartan Potassium (Cozaar) 50 mg PO DAILY [facility] Last Admin: 01/15/18 10:28 Dose: 50 mg Methylprednisolone (Solu-Medrol) 40 mg IV Q12 [facility] Last Admin: 01/15/18 10:18 Dose: 40 mg Metoprolol Tartrate (Lopressor) 25 mg PO BID [facility] Last Admin: 01/15/18 10:28 Dose: 25 mg Montelukast Sodium (Singulair) 10 mg PO DAILY [facility] Last Admin: 01/15/18 10:28 Dose: 10 mg Ondansetron HCl (Zofran Inj) 4 mg IVP Q6H PRN PRN Reason: Nausea/Vomiting Last Admin: 01/15/18 02:48 Dose: 4 mg Promethazine HCl/Dextromethorphan (Phenergan Dm Syrup) 5 ml PO Q6H PRN PRN Reason: Cough and congestion Last Admin: 01/14/18 10:18 Dose: 5 ml Rosuvastatin Calcium (Crestor) 5 mg PO HS [facility] Last Admin: 01/14/18 21:50 Dose: 5 mg Sevelamer Carbonate (Renvela) 800 mg PO TID [facility] Last Admin: 01/15/18 10:28 Dose: Not Given - Labs Labs: 01/15/18 06:38 01/15/18 06:38 PT 16.4 SECONDS (9.7-12.2) H 01/13/18 08:11 INR 1.4 01/13/18 08:11 APTT 28 SECONDS (21-34) 01/13/18 08:11 - Additional Findings Additional findings: - Constitutional Appears: Non-toxic, No Acute Distress - Head Exam Head Exam: ATRAUMATIC, NORMAL INSPECTION, NORMOCEPHALIC - Eye Exam Eye Exam: EOMI, Normal appearance, PERRL Pupil Exam: NORMAL ACCOMODATION - ENT Exam ENT Exam: Mucous Membranes Moist - Neck Exam Neck Exam: Full ROM, Normal Inspection. absent: Lymphadenopathy - Respiratory Exam Respiratory Exam: rales b/l lower lung bases, NORMAL BREATHING PATTERN - Cardiovascular Exam Cardiovascular Exam: REGULAR RHYTHM, +S1, +S2, Murmur (systolic ejection murmur ). absent: Bradycardia, Tachycardia - GI/Abdominal Exam GI & Abdominal Exam: Soft, Normal Bowel Sounds. absent: Distended, Tenderness - Extremities Exam Extremities Exam: Normal Inspection. absent: Calf Tenderness, Pedal Edema - Back Exam Back Exam: NORMAL INSPECTION - Neurological Exam Neurological Exam: Alert, Awake, Oriented x3 - Psychiatric Exam Psychiatric exam: Normal Affect, Normal Mood - Skin Skin Exam: Dry, Intact, Normal Color, Warm Assessment and Plan - Assessment and Plan (Free Text) Assessment: Persistent cough * Likely secondary to interstitial lung disease vs. CHF exacerbation (possibly due to history of aortic stenosis) vs. infectious etiology * Cardiology (Dr. Kirk) consulted, help appreciated * Pulmonology consulted (Dr. Cyr), help appreciated * CT sinuses: Mild sinuses mucosal thickening noted at the ethmoid maxillary and sphenoid sinuses without evidence of air-fluid level to suggest acute sinusitis. Slight nasal septum deviation to the right. * Troponins elevated (0.2330, 0.3100, 0.3460) * BNP: 32959 * D-dimer: 1892 * CTA: negative for PE * CXR: prominent interstitial markings * F/U Echo * Echo from 01/23/15 showed preserved ejection fraction with aortic stenosis * blood cultures negative * repeat sputum culture (first one was contaminated) * Procal level 2.08 Meds: * Tylenol prn for fevers * Zithromax 500 mg PO QD * Rocephin 1 g IV QD * Robitussin * Florastor 250mg po BID * Tessalon perls * Fluticasone nasal spray * Solumedrol 40 mg IV Q12 * Promethazine DM Q6H PRN Anemia * Monitor H&H CAD s/p CABG * Continue home medications: Aspirin 81 mg po qd, Lopressor 25 mg po qd, cozaar 50 mg po qd * HgbA1c 5.4 * Lipid panel: Trig 114, Chol 94, LDL 34, HDL 26 Transaminitis * Trending down * Will monitor for now HLD * Continue home medication crestor ESRD on HD T, , S * [employer], 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; help appreciated * continue Renvela, Sensipar A fib * Continue home medication Eliquis 5 mg po bid Left Upper Pole Hemorrhagic Renal Cyst f/u renal ultrasound Constipation Colace 100mg po TID Prophylaxis * Eliquis * Pepcid QD * Zofran prn nausea (give sparingly given prolonged QT seen on EKG) * Renal diet <Jesus Horncaitlyn Mosley - Last Filed: 01/15/18 19:25> Objective - Vital Signs/Intake and Output Vital Signs (last 24 hours): Temp Pulse Resp BP Pulse Ox 97.3 F L 63 20 144/59 L 92 L 01/15/18 16:00 01/15/18 16:04 01/15/18 16:00 01/15/18 17:30 01/15/18 16:04 Intake and Output: 01/15/18 01/16/18 18:59 06:59 Intake Total 350 Balance 350 - Medications Medications: Current Medications Acetaminophen (Tylenol 325mg Tab) 650 mg PO Q6 PRN PRN Reason: Fever >100.4 F Last Admin: 01/13/18 16:41 Dose: 650 mg Acetylcysteine (Acetylcysteine 20%) 4 ml INH ONCE ONE Stop: 01/16/18 06:31 Albuterol/Ipratropium (Duoneb 3 Mg/0.5 Mg (3 Ml) Ud) 3 ml INH ONCE ONE Stop: 01/16/18 06:31 Apixaban (Eliquis) 5 mg PO BID [facility] Last Admin: 01/15/18 17:30 Dose: 5 mg Aspirin (Ecotrin) 81 mg PO DAILY [facility] Last Admin: 01/15/18 14:37 Dose: Not Given Azithromycin (Zithromax) 500 mg PO DAILY [facility] PRN Reason: Protocol Last Admin: 01/15/18 10:28 Dose: 500 mg Cinacalcet (Sensipar) 30 mg PO DAILY [facility] Last Admin: 01/15/18 14:37 Dose: 30 mg Docusate Sodium (Colace) 100 mg PO TID [facility] Last Admin: 01/15/18 17:30 Dose: 100 mg Famotidine (Pepcid) 20 mg PO DAILY [facility] Last Admin: 01/15/18 10:28 Dose: 20 mg Fluticasone Propionate (Flonase) 1 spr NIKHIL DAILY [facility] Last Admin: 01/15/18 10:18 Dose: 1 spr Ceftriaxone Sodium (Rocephin Iv 1 Gm Duplex) 50 mls @ 100 mls/hr IVPB DAILY [facility] PRN Reason: Protocol Last Admin: 01/15/18 10:19 Dose: 100 mls/hr Losartan Potassium (Cozaar) 50 mg PO DAILY [facility] Last Admin: 01/15/18 10:28 Dose: 50 mg Methylprednisolone (Solu-Medrol) 40 mg IV Q12 [facility] Last Admin: 01/15/18 10:18 Dose: 40 mg Metoprolol Tartrate (Lopressor) 25 mg PO BID [facility] Last Admin: 01/15/18 17:30 Dose: 25 mg Montelukast Sodium (Singulair) 10 mg PO DAILY [facility] Last Admin: 01/15/18 10:28 Dose: 10 mg Ondansetron HCl (Zofran Inj) 4 mg IVP Q6H PRN PRN Reason: Nausea/Vomiting Last Admin: 01/15/18 02:48 Dose: 4 mg Promethazine HCl/Dextromethorphan (Phenergan Dm Syrup) 5 ml PO Q6H PRN PRN Reason: Cough and congestion Last Admin: 01/14/18 10:18 Dose: 5 ml Rosuvastatin Calcium (Crestor) 5 mg PO HS [facility] Last Admin: 01/14/18 21:50 Dose: 5 mg Saccharomyces Boulardii (Florastor) 250 mg PO BID [facility] Last Admin: 01/15/18 17:30 Dose: 250 mg Sevelamer Carbonate (Renvela) 800 mg PO TID [facility] Last Admin: 01/15/18 17:30 Dose: 800 mg - Labs Labs: 01/15/18 06:38 01/15/18 06:38 PT 16.4 SECONDS (9.7-12.2) H 01/13/18 08:11 INR 1.4 01/13/18 08:11 APTT 28 SECONDS (21-34) 01/13/18 08:11 Attending/Attestation - Attestation I have personally seen and examined this patient.: Yes I have fully participated in the care of the patient.: Yes I have reviewed all pertinent clinical information, including history, physical exam and plan: Yes Notes (Text): 01/15/18 19:12 Patient was seen and examined at 12:30 PM Exam, assessment and plan were gone over with the resident I do not believe that this patient is in active heart failure (despite elevated ProBNP on admission) as his chest x ray did not show pulmonary vascular congestion. Also his weight had not increased significantly. He has been getting HD therefore this should help remove any excess fluid should HF be the case. F/U 2D Echocardiogram report. Cough that is mostly dry and occasionally productive of white material: patient states that this has been going on for 2 years since his CABG. 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 Could this be Interstitial Lung Disease? Again we will speak with Pulmonology. CT Chest 01/12/18 did not indicate any consolidations. Because of this I do not feel like we need to have Azithromycin and Rocephin on board. The WBC count elevation likely secondary to Solumedrol as Vitals do not indicate any fevers in the past 36+ hours. Will speak with Pulmonology concerning this issue. CT Sinuses showed some mucosal thickening but not to the level that would indicate Sinusitis Sputum Culture #1 showed mucosal contamination. Induced Sputum (with Duoneb and Mucomyst) ordered for morning 01/16/18. Renal U/S ordered for better evaluation of the left upper pole renal hemorrhagic cyst that was picked up on the CT Chest. Slightly elevated Troponin is likely secondary to the ESRD as it has not changed. Anemia is stable Julius Horn D.O.
--- NOTE | 2018-01-15 13:14 | CP.PCM.PN ---
Subjective - Date & Time of Evaluation Date of Evaluation: 01/15/18 Time of Evaluation: 13:12 - Subjective Subjective: still coughing- maybe better with steroids stable dialysis 01/13- UF 2100ml no overt CHF seen labs acceptable BP controlled Objective - Vital Signs/Intake and Output Vital Signs (last 24 hours): Temp Pulse Resp BP Pulse Ox 97.7 F 66 20 157/66 H 97 01/15/18 07:56 01/15/18 10:16 01/15/18 10:16 01/15/18 10:28 01/15/18 10:16 Intake and Output: 01/15/18 01/15/18 06:59 18:59 Intake Total 320 Balance 320 - Medications Medications: Current Medications Acetaminophen (Tylenol 325mg Tab) 650 mg PO Q6 PRN PRN Reason: Fever >100.4 F Last Admin: 01/13/18 16:41 Dose: 650 mg Apixaban (Eliquis) 5 mg PO BID [facility] Last Admin: 01/14/18 21:49 Dose: 5 mg Aspirin (Ecotrin) 81 mg PO DAILY [facility] Last Admin: 01/14/18 11:55 Dose: 81 mg Azithromycin (Zithromax) 500 mg PO DAILY [facility] PRN Reason: Protocol Last Admin: 01/15/18 10:28 Dose: 500 mg Cinacalcet (Sensipar) 30 mg PO DAILY [facility] Last Admin: 01/14/18 11:55 Dose: 30 mg Famotidine (Pepcid) 20 mg PO DAILY [facility] Last Admin: 01/15/18 10:28 Dose: 20 mg Fluticasone Propionate (Flonase) 1 spr NIKHIL DAILY [facility] Last Admin: 01/15/18 10:18 Dose: 1 spr Guaifenesin (Robitussin) 200 mg PO Q4H PRN PRN Reason: Cough and congestion Ceftriaxone Sodium (Rocephin Iv 1 Gm Duplex) 50 mls @ 100 mls/hr IVPB DAILY [facility] PRN Reason: Protocol Last Admin: 01/15/18 10:19 Dose: 100 mls/hr Losartan Potassium (Cozaar) 50 mg PO DAILY [facility] Last Admin: 01/15/18 10:28 Dose: 50 mg Methylprednisolone (Solu-Medrol) 40 mg IV Q12 [facility] Last Admin: 01/15/18 10:18 Dose: 40 mg Metoprolol Tartrate (Lopressor) 25 mg PO BID [facility] Last Admin: 01/15/18 10:28 Dose: 25 mg Montelukast Sodium (Singulair) 10 mg PO DAILY [facility] Last Admin: 01/15/18 10:28 Dose: 10 mg Ondansetron HCl (Zofran Inj) 4 mg IVP Q6H PRN PRN Reason: Nausea/Vomiting Last Admin: 01/15/18 02:48 Dose: 4 mg Promethazine HCl/Dextromethorphan (Phenergan Dm Syrup) 5 ml PO Q6H PRN PRN Reason: Cough and congestion Last Admin: 01/14/18 10:18 Dose: 5 ml Rosuvastatin Calcium (Crestor) 5 mg PO HS [facility] Last Admin: 01/14/18 21:50 Dose: 5 mg Sevelamer Carbonate (Renvela) 800 mg PO TID [facility] Last Admin: 01/15/18 10:28 Dose: Not Given - Labs Labs: 01/15/18 06:38 01/15/18 06:38 PT 16.4 SECONDS (9.7-12.2) H 01/13/18 08:11 INR 1.4 01/13/18 08:11 APTT 28 SECONDS (21-34) 01/13/18 08:11 - Constitutional Appears: No Acute Distress, Chronically Ill - Head Exam Head Exam: ATRAUMATIC, NORMAL INSPECTION - Eye Exam Eye Exam: EOMI, Normal appearance - Neck Exam Neck Exam: Normal Inspection. absent: Tenderness - Respiratory Exam Respiratory Exam: Rhonchi, NORMAL BREATHING PATTERN - Cardiovascular Exam Cardiovascular Exam: REGULAR RHYTHM, +S1 - GI/Abdominal Exam GI & Abdominal Exam: Soft. absent: Tenderness - Extremities Exam Extremities Exam: Normal Inspection. absent: Tenderness - Neurological Exam Neurological Exam: Alert, CN II-XII Intact - Skin Skin Exam: Dry, Warm Assessment and Plan (1) Cough Status: Acute (2) Hypoxemia Status: Acute (3) ESRD (end stage renal disease) on dialysis Status: Chronic (4) Atrial flutter, paroxysmal Status: Acute (5) End stage renal disease Status: Acute (6) HTN (hypertension) Status: Acute - Assessment and Plan (Free Text) Plan: agree with steroids still needs adequate UF with HD- TTS follow BP
--- NOTE | 2018-01-15 15:22 | CP.PCM.PN ---
Subjective - Date & Time of Evaluation Date of Evaluation: 01/15/18 Time of Evaluation: 08:00 - Subjective Subjective: Patient seen and examined at bedside Patient reports that his cough was worse yesterday but is slightly improved today. He states that he cannot lay down without coughing. Assessment and Plan: 1. Cough secondary to Upper Airway Cough syndrome vs. CHF exacerbation - CBC 01/15: WBC 12.6 from 7.8, 9 bands - WBCs and bands increased, unclear if due to infection or steroids - CT Sinuses 01/13: mild sinus mucosal thickening at the ethmoid, maxillary and sphenoid sinuses without air-fluid levels - CTA 01/12: No Pulmonary embolism, no nodules, masses or pulmonary consolidations - Cardiology onboard - IV rocephin and zithromax - flonase - phenergan DM - continue solu-medrol - Dialysis Tu/Thur/Sat - add nebulizer treatments Objective - Vital Signs/Intake and Output Vital Signs (last 24 hours): Temp Pulse Resp BP Pulse Ox 97.7 F 66 20 157/66 H 97 01/15/18 07:56 01/15/18 10:16 01/15/18 10:16 01/15/18 10:28 01/15/18 10:16 Intake and Output: 01/15/18 01/15/18 06:59 18:59 Intake Total 320 Balance 320 - Medications Medications: Current Medications Acetaminophen (Tylenol 325mg Tab) 650 mg PO Q6 PRN PRN Reason: Fever >100.4 F Last Admin: 01/13/18 16:41 Dose: 650 mg Apixaban (Eliquis) 5 mg PO BID [facility] Last Admin: 01/15/18 14:38 Dose: Not Given Aspirin (Ecotrin) 81 mg PO DAILY [facility] Last Admin: 01/15/18 14:37 Dose: Not Given Azithromycin (Zithromax) 500 mg PO DAILY [facility] PRN Reason: Protocol Last Admin: 01/15/18 10:28 Dose: 500 mg Cinacalcet (Sensipar) 30 mg PO DAILY [facility] Last Admin: 01/15/18 14:37 Dose: 30 mg Famotidine (Pepcid) 20 mg PO DAILY [facility] Last Admin: 01/15/18 10:28 Dose: 20 mg Fluticasone Propionate (Flonase) 1 spr NIKHIL DAILY [facility] Last Admin: 01/15/18 10:18 Dose: 1 spr Guaifenesin (Robitussin) 200 mg PO Q4H PRN PRN Reason: Cough and congestion Ceftriaxone Sodium (Rocephin Iv 1 Gm Duplex) 50 mls @ 100 mls/hr IVPB DAILY [facility] PRN Reason: Protocol Last Admin: 01/15/18 10:19 Dose: 100 mls/hr Losartan Potassium (Cozaar) 50 mg PO DAILY [facility] Last Admin: 01/15/18 10:28 Dose: 50 mg Methylprednisolone (Solu-Medrol) 40 mg IV Q12 [facility] Last Admin: 01/15/18 10:18 Dose: 40 mg Metoprolol Tartrate (Lopressor) 25 mg PO BID [facility] Last Admin: 01/15/18 10:28 Dose: 25 mg Montelukast Sodium (Singulair) 10 mg PO DAILY [facility] Last Admin: 01/15/18 10:28 Dose: 10 mg Ondansetron HCl (Zofran Inj) 4 mg IVP Q6H PRN PRN Reason: Nausea/Vomiting Last Admin: 01/15/18 02:48 Dose: 4 mg Promethazine HCl/Dextromethorphan (Phenergan Dm Syrup) 5 ml PO Q6H PRN PRN Reason: Cough and congestion Last Admin: 01/14/18 10:18 Dose: 5 ml Rosuvastatin Calcium (Crestor) 5 mg PO HS [facility] Last Admin: 01/14/18 21:50 Dose: 5 mg Sevelamer Carbonate (Renvela) 800 mg PO TID [facility] Last Admin: 01/15/18 14:37 Dose: Not Given - Labs Labs: 01/15/18 06:38 01/15/18 06:38 PT 16.4 SECONDS (9.7-12.2) H 01/13/18 08:11 INR 1.4 01/13/18 08:11 APTT 28 SECONDS (21-34) 01/13/18 08:11
[2018-01-15] MEDS: Saccharomyces Boulardi 250 mg Cap PO SCH (17:30)
--- NOTE | 2018-01-15 20:39 | CARD ---
APPROVED REPORT EKG Measurement Heart [id number] <Conclusion> Sinus rhythm with 1st degree AV block ST & T wave abnormality, consider lateral ischemia Prolonged QT Abnormal ECG
--- NOTE | 2018-01-15 20:44 | CARD ---
APPROVED REPORT EKG Measurement Heart [id number] <Conclusion> Sinus rhythm with premature atrial complexes ST & T wave abnormality, consider lateral ischemia Prolonged QT Abnormal ECG
--- NOTE | 2018-01-15 22:51 | CARD ---
APPROVED REPORT EXAM: Two-dimensional and M-mode echocardiogram with Doppler and color Doppler. Other Information Quality : GoodRhythm : INDICATION Cardiac Disease: CAD Palpitations 2D DIMENSIONS IVSd1.6 (0.7-1.1cm)LVDd5.2 (3.9-5.9cm) LVOT Diameter2.1 (1.8-2.4cm)PWd1.0 (0.7-1.1cm) LVDs3.9 (2.5-4.0cm)FS (%) 24.4 % LVEF (%)48.1 (>50%) M-Mode DIMENSIONS Left Atrium (MM)5.19 (2.5-4.0cm)Aortic Root3.06 (2.2-3.7cm) Aortic Cusp Exc.1.80 (1.5-2.0cm) Aortic Valve AoV Peak Cuwxlpkx641.4cm/sAoV VTI49.3cmAO Peak GR.20mmHg AO Mean GR.12mmHg Mitral Valve MV E Adttrsib26.7cm/sMV A Dvtpobow23.1cm/sE/A ratio1.3 TDI E/Lateral E'0.0E/Medial E'0.0 Tricuspid Valve TR Peak Buyzbmrw522gb/sTR Peak Gr.26mmHg LEFT VENTRICLE The left ventricle is normal size. There is borderline concentric left ventricular hypertrophy. Left ventricle systolic function is mildly impaired. The Ejection Fraction is 45-50%. There is mild hypokinesis in the mid-anteroseptal wall. Transmitral Doppler flow pattern is Grade II-pseudonormal filling dynamics. There is no ventricular septal defect visualized. RIGHT VENTRICLE The right ventricle is normal size. The right ventricular systolic function is normal. ATRIA The left atrium is mildly dilated. The right atrium size is normal. AORTIC VALVE The aortic valve is moderately sclerotic. The aortic valve is tri-cuspid. No aortic regurgitation is present. There is mild valvular aortic stenosis. maximum pressure gradient of 20 mmHg , suboptimal, not able to calculate valve area. MITRAL VALVE Mitral annular calcification is moderate. There is no evidence of mitral valve prolapse. Mitral regurgitation is mild. TRICUSPID VALVE The tricuspid valve is normal in structure. There is mild tricuspid regurgitation. Right ventricular systolic pressure is estimated at less than 30 mmHg. There is no pulmonary hypertension. PULMONIC VALVE The pulmonic valve is not well visualized. There is trace pulmonic valvular regurgitation. GREAT VESSELS The aortic root is normal in size. The IVC is dilated. PERICARDIAL EFFUSION There is no pericardial effusion. <Conclusion> There is borderline concentric left ventricular hypertrophy. Left ventricle systolic function is mildly impaired. The Ejection Fraction is 45-50%. There is mild hypokinesis in the mid-anteroseptal wall. Transmitral Doppler flow pattern is Grade II-pseudonormal filling dynamics. There is mild valvular aortic stenosis. Mitral regurgitation is mild.
[2018-01-16] MEDS: Promethazine DM 6.25 mg-15 mg/5 ml Syrup PO PRN ×3 (01:46→20:21)
[2018-01-16] MEDS ORDERED: Albuterol-Ipratrop 3 mg / 0.5 (3 ml) UD INH ONE (06:30)
[2018-01-16] MEDS ORDERED: Acetylcysteine 20% Inhal Soln (4ml) INH ONE (06:30)
[2018-01-16 07:30] LABS: BASO % 0.2 % (0.0-2.0); HEMOGLOBIN 10.7 g/dL (12.0-18.0); LYMPH # 1.4 K/uL (1.0-4.3); LYMPH % 8.3 % (20.0-40.0); MEAN CELL VOLUME 97.3 fL (80.0-94.0); MEAN CORPUSCULAR HEMOGLOBIN 32.9 pg (27.0-31.0); MEAN CORPUSCULAR HGB CONC 33.7 g/dL (33.0-37.0); MEAN PLATELET VOLUME 11.1 fL (7.2-11.7); MONO # 1.1 K/uL (0.0-0.8); MONO % 6.2 % (0.0-10.0); NEUT # 14.6 K/uL (1.8-7.0); NEUT % 85.3 % (50.0-75.0); NRBC % 2.2 % (0.0-2.0); PLATELET COUNT 173 K/uL (130-400); RBC 3.25 Mil/uL (4.40-5.90); RED CELL DISTRIBUTION WIDTH 16.1 % (11.5-14.5); WHITE BLOOD COUNT 17.1 K/uL (4.8-10.8)
[2018-01-16 08:28] LABS: ALB/GLOB RATIO 1.2 (1.0-2.1); ALBUMIN 4.2 g/dL (3.5-5.0); CALCIUM 7.9 mg/dl (8.6-10.4)
--- NOTE | 2018-01-16 10:02 | CP.PCM.PN ---
Subjective - Date & Time of Evaluation Date of Evaluation: 01/16/18 Time of Evaluation: 07:00 - Subjective Subjective: PGY1- Medicine Note for Dr. Horn Patient seen and examined at bedside and in no acute distress. Patient says he had difficulty sleeping last night because he was coughing so much. He said around 2 am he became nauseous from coughing, but did not vomit. Patient says he feels very dry and is not producing any phlegm. Patient says he had 3 bowel movement yesterday. Patient complains of generalized abdominal discomfort. Patient also says he becomes short of breath with walking, but was able to walk with PT down the [place] and back yesterday. Patient denies chest pain. Objective - Vital Signs/Intake and Output Vital Signs (last 24 hours): Temp Pulse Resp BP Pulse Ox 97.0 F L 60 20 166/82 H 98 01/16/18 07:35 01/16/18 08:00 01/16/18 07:35 01/16/18 07:35 01/16/18 07:35 Intake and Output: 01/16/18 01/16/18 06:59 18:59 Intake Total 200 Balance 200 - Medications Medications: Current Medications Acetaminophen (Tylenol 325mg Tab) 650 mg PO Q6 PRN PRN Reason: Fever >100.4 F Last Admin: 01/13/18 16:41 Dose: 650 mg Apixaban (Eliquis) 5 mg PO BID [facility] Last Admin: 01/15/18 17:30 Dose: 5 mg Aspirin (Ecotrin) 81 mg PO DAILY [facility] Last Admin: 01/15/18 14:37 Dose: Not Given Azithromycin (Zithromax) 500 mg PO DAILY [facility] PRN Reason: Protocol Last Admin: 01/15/18 10:28 Dose: 500 mg Cinacalcet (Sensipar) 30 mg PO DAILY [facility] Last Admin: 01/15/18 14:37 Dose: 30 mg Docusate Sodium (Colace) 100 mg PO TID [facility] Last Admin: 01/16/18 09:56 Dose: Not Given Famotidine (Pepcid) 20 mg PO DAILY [facility] Last Admin: 01/15/18 10:28 Dose: 20 mg Fluticasone Propionate (Flonase) 1 spr NIKHIL DAILY [facility] Last Admin: 01/15/18 10:18 Dose: 1 spr Ceftriaxone Sodium (Rocephin Iv 1 Gm Duplex) 50 mls @ 100 mls/hr IVPB DAILY [facility] PRN Reason: Protocol Last Admin: 01/15/18 10:19 Dose: 100 mls/hr Losartan Potassium (Cozaar) 50 mg PO DAILY [facility] Last Admin: 01/15/18 10:28 Dose: 50 mg Methylprednisolone (Solu-Medrol) 40 mg IV Q12 [facility] Last Admin: 01/15/18 21:39 Dose: Not Given Metoprolol Tartrate (Lopressor) 25 mg PO BID [facility] Last Admin: 01/15/18 17:30 Dose: 25 mg Montelukast Sodium (Singulair) 10 mg PO DAILY [facility] Last Admin: 01/15/18 10:28 Dose: 10 mg Ondansetron HCl (Zofran Inj) 4 mg IVP Q6H PRN PRN Reason: Nausea/Vomiting Last Admin: 01/15/18 02:48 Dose: 4 mg Promethazine HCl/Dextromethorphan (Phenergan Dm Syrup) 5 ml PO Q6H PRN PRN Reason: Cough and congestion Last Admin: 01/16/18 01:46 Dose: 5 ml Rosuvastatin Calcium (Crestor) 5 mg PO HS [facility] Last Admin: 01/15/18 21:39 Dose: Not Given Saccharomyces Boulardii (Florastor) 250 mg PO BID [facility] Last Admin: 01/15/18 17:30 Dose: 250 mg Sevelamer Carbonate (Renvela) 800 mg PO TIDCC [facility] Last Admin: 01/16/18 08:33 Dose: 800 mg - Labs Labs: 01/16/18 07:19 01/16/18 07:19 PT 16.4 SECONDS (9.7-12.2) H 01/13/18 08:11 INR 1.4 01/13/18 08:11 APTT 28 SECONDS (21-34) 01/13/18 08:11 - Additional Findings Additional findings: - Constitutional Appears: Non-toxic, No Acute Distress - Head Exam Head Exam: ATRAUMATIC, NORMAL INSPECTION, NORMOCEPHALIC - Eye Exam Eye Exam: EOMI, Normal appearance, PERRL Pupil Exam: NORMAL ACCOMODATION - ENT Exam ENT Exam: Mucous Membranes Moist - Neck Exam Neck Exam: Full ROM, Normal Inspection. absent: Lymphadenopathy - Respiratory Exam Respiratory Exam: rales b/l lower lung bases, NORMAL BREATHING PATTERN - Cardiovascular Exam Cardiovascular Exam: REGULAR RHYTHM, +S1, +S2, Murmur (systolic ejection murmur ). absent: Bradycardia, Tachycardia - GI/Abdominal Exam GI & Abdominal Exam: Soft, Normal Bowel Sounds. absent: Distended, Tenderness - Extremities Exam Extremities Exam: Normal Inspection. absent: Calf Tenderness, Pedal Edema - Back Exam Back Exam: NORMAL INSPECTION - Neurological Exam Neurological Exam: Alert, Awake, Oriented x3 - Psychiatric Exam Psychiatric exam: Normal Affect, Normal Mood - Skin Skin Exam: Dry, Intact, Normal Color, Warm Assessment and Plan - Assessment and Plan (Free Text) Assessment: Persistent cough * Likely secondary to interstitial lung disease vs. CHF exacerbation (possibly due to history of aortic stenosis) vs. infectious etiology * Cardiology (Dr. Kirk) consulted, help appreciated * Pulmonology consulted (Dr. Cyr), help appreciated * CT sinuses: Mild sinuses mucosal thickening noted at the ethmoid maxillary and sphenoid sinuses without evidence of air-fluid level to suggest acute sinusitis. Slight nasal septum deviation to the right. * Troponins elevated (0.2330, 0.3100, 0.3460) probably secondary to ESRD * BNP: 89715 * D-dimer: 1892 * CTA: negative for PE * CXR: prominent interstitial markings * Echo from 01/23/15 showed preserved ejection fraction with aortic stenosis * blood cultures negative * repeat sputum culture (first one was contaminated) * Procal level 2.08 Meds: * Tylenol prn for fevers * Zithromax 500 mg PO QD * Rocephin 1 g IV QD * Robitussin * Florastor 250mg po BID * Tessalon perls * Fluticasone nasal spray * Solumedrol 40 mg IV Q12 * Promethazine DM Q6H PRN * Duonebs q6h (started on 01/16) * Advair 250/50 1 puff q12h (started on 01/16) Anemia * Monitor H&H CAD s/p CABG * Continue home medications: Aspirin 81 mg po qd, Lopressor 25 mg po qd, cozaar 50 mg po qd * HgbA1c 5.4 * Lipid panel: Trig 114, Chol 94, LDL 34, HDL 26 Transaminitis * Trending up * discontinue azithromycin and rocephin HLD * Continue home medication Crestor ESRD on HD T, Th, S * Acetone Recovery Worker, 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; help appreciated * continue Renvela, Sensipar A fib * Continue home medication Eliquis 5 mg po bid Left Upper Pole Hemorrhagic Renal Cyst f/u renal ultrasound Constipation Colace 100mg po TID Prophylaxis * Eliquis * Pepcid QD * Zofran prn nausea (give sparingly given prolonged QT seen on EKG) * Renal diet
[2018-01-16 10:22] LABS: BANDS 8 % (0-2); LYMPHOCYTE 5 % (20-40); MONOCYTE 7 % (0-10); NEUTROPHIL 80 % (50-75); NUCLEATED RED BLOOD CELL 2 % (0-0); PLATELET ESTIMATE NORMAL (NORMAL); TOTAL CELLS COUNTED 100
[2018-01-16 10:25] LABS: ANISOCYTOSIS SLIGHT; LARGE PLATELETS PRESENT; OVALOCYTES SLIGHT
[2018-01-16] MEDS: MethylPREDNISolone 40 mg Vial IV SCH ×2 (11:00→22:27)
--- NOTE | 2018-01-16 13:40 | CP.PCM.PN ---
Subjective - Date & Time of Evaluation Date of Evaluation: 01/16/18 Time of Evaluation: 13:38 - Subjective Subjective: seen and examined still w/ severe cough, unable to speak in complete sentences. Eating lunch hd today, uf 3L Objective - Vital Signs/Intake and Output Vital Signs (last 24 hours): Temp Pulse Resp BP Pulse Ox 95.5 F L 54 L 20 162/69 H 100 01/16/18 09:35 01/16/18 12:00 01/16/18 09:35 01/16/18 12:35 01/16/18 09:35 Intake and Output: 01/16/18 01/16/18 06:59 18:59 Intake Total 200 Balance 200 - Medications Medications: Current Medications Acetaminophen (Tylenol 325mg Tab) 650 mg PO Q6 PRN PRN Reason: Fever >100.4 F Last Admin: 01/13/18 16:41 Dose: 650 mg Apixaban (Eliquis) 5 mg PO BID [facility] Last Admin: 01/15/18 17:30 Dose: 5 mg Aspirin (Ecotrin) 81 mg PO DAILY [facility] Last Admin: 01/15/18 14:37 Dose: Not Given Azithromycin (Zithromax) 500 mg PO DAILY [facility] PRN Reason: Protocol Last Admin: 01/15/18 10:28 Dose: 500 mg Cinacalcet (Sensipar) 30 mg PO DAILY [facility] Last Admin: 01/15/18 14:37 Dose: 30 mg Docusate Sodium (Colace) 100 mg PO TID [facility] Last Admin: 01/16/18 09:56 Dose: Not Given Famotidine (Pepcid) 20 mg PO DAILY [facility] Last Admin: 01/15/18 10:28 Dose: 20 mg Fluticasone Propionate (Flonase) 1 spr NIKHIL DAILY [facility] Last Admin: 01/15/18 10:18 Dose: 1 spr Ceftriaxone Sodium (Rocephin Iv 1 Gm Duplex) 50 mls @ 100 mls/hr IVPB DAILY [facility] PRN Reason: Protocol Last Admin: 01/15/18 10:19 Dose: 100 mls/hr Losartan Potassium (Cozaar) 50 mg PO DAILY [facility] Last Admin: 01/15/18 10:28 Dose: 50 mg Methylprednisolone (Solu-Medrol) 40 mg IV Q12 [facility] Last Admin: 01/15/18 21:39 Dose: Not Given Metoprolol Tartrate (Lopressor) 25 mg PO BID [facility] Last Admin: 01/15/18 17:30 Dose: 25 mg Montelukast Sodium (Singulair) 10 mg PO DAILY [facility] Last Admin: 01/15/18 10:28 Dose: 10 mg Ondansetron HCl (Zofran Inj) 4 mg IVP Q6H PRN PRN Reason: Nausea/Vomiting Last Admin: 01/15/18 02:48 Dose: 4 mg Promethazine HCl/Dextromethorphan (Phenergan Dm Syrup) 5 ml PO Q6H PRN PRN Reason: Cough and congestion Last Admin: 01/16/18 01:46 Dose: 5 ml Rosuvastatin Calcium (Crestor) 5 mg PO HS [facility] Last Admin: 01/15/18 21:39 Dose: Not Given Saccharomyces Boulardii (Florastor) 250 mg PO BID [facility] Last Admin: 01/15/18 17:30 Dose: 250 mg Sevelamer Carbonate (Renvela) 800 mg PO TIDCC [facility] Last Admin: 01/16/18 08:33 Dose: 800 mg - Labs Labs: 01/16/18 07:19 01/16/18 07:19 PT 16.4 SECONDS (9.7-12.2) H 01/13/18 08:11 INR 1.4 01/13/18 08:11 APTT 28 SECONDS (21-34) 01/13/18 08:11 - Constitutional Appears: Non-toxic, No Acute Distress, Chronically Ill - Head Exam Head Exam: NORMAL INSPECTION, NORMOCEPHALIC - Eye Exam Eye Exam: Normal appearance, PERRL - ENT Exam ENT Exam: Mucous Membranes Moist, Normal Exam - Neck Exam Neck Exam: Full ROM, Normal Inspection - Respiratory Exam Respiratory Exam: Decreased Breath Sounds, NORMAL BREATHING PATTERN - Cardiovascular Exam Cardiovascular Exam: REGULAR RHYTHM, RRR - GI/Abdominal Exam GI & Abdominal Exam: Distended, Soft, Normal Bowel Sounds - Extremities Exam Extremities Exam: Full ROM, Normal Inspection - Neurological Exam Neurological Exam: Alert, Awake, Oriented x3 - Psychiatric Exam Psychiatric exam: Normal Affect, Normal Mood - Skin Skin Exam: Dry, Intact Assessment and Plan (1) Cough Status: Acute (2) ESRD (end stage renal disease) on dialysis Status: Chronic (3) Atrial fibrillation, currently in sinus rhythm Status: Acute (4) Chest pain Status: Acute (5) HTN (hypertension) Status: Acute - Assessment and Plan (Free Text) Assessment: leukocytosis / azotemia likely sec to steroids maintain hd tts pulmonary and cardiac eval [place]
--- NOTE | 2018-01-16 13:58 | US ---
PROCEDURE: Ultrasound of the Kidneys HISTORY: Left Upper Pole Hemorrhagic Cyst on CT COMPARISON: 01/12/2018 CT angiogram [facility] for pulmonary embolism includes the upper abdomen. TECHNIQUE: Sonogram of the kidneys. FINDINGS: RIGHT KIDNEY: Measures: 4.9 x 9.6 cm. Normal in size, contour and echogenicity. Upper pole cyst 1.3 x 1.4 cm. Lower pole cyst 2 x 2.5 cm. LEFT KIDNEY: Measures: 4.6 x 10.6 cm. Normal in size, contour and echogenicity. Upper pole cyst 3.9 x 4.9 cm. This appears represent a simple cysts. Midpole cyst 1.9 x 1.7 cm. This appears to represent a simple cyst. Additional lower pole cyst 2.2 x 2.1 cm. OTHER FINDINGS: Aneurysmal dilatation of the abdominal aorta with maximum diameter 4.4 x 4.1 cm IMPRESSION: No significant or acute findings to account for/ related to the clinical presentation. Additional benign and/or incidental findings described above. Simple cyst upper pole left kidney conforms to findings on recent CT angiogram.
[2018-01-16] MEDS: Fluticasone Nasal 50 mcg/Spray NAS SCH (14:22)
[2018-01-16] MEDS: Saccharomyces Boulardi 250 mg Cap PO SCH ×2 (14:30→18:34)
--- NOTE | 2018-01-16 15:52 | CP.PCM.PN ---
Subjective - Date & Time of Evaluation Date of Evaluation: 01/16/18 Time of Evaluation: 11:25 - Subjective Subjective: Patient seen and examined at bedside while receiving hemodialysis. Patient was resting comfortably but reported that he still had a cough and felt short of breath even as he was sitting in bed. Clear lungs on auscultation. Agreed to stop antibiotics and start nebullizer treatments Assessment and Plan: 1. Cough secondary to Upper Airway Cough syndrome vs. CHF exacerbation - CBC 01/16: WBC 17.1 from 12.6, diff pending - WBCs increased, unclear if due to infection or steroids - CT Sinuses 01/13: mild sinus mucosal thickening at the ethmoid, maxillary and sphenoid sinuses without air-fluid levels - CTA 01/12: No Pulmonary embolism, no nodules, masses or pulmonary consolidations - Cardiology onboard - IV rocephin and zithromax stopped by primary team - flonase - phenergan DM - continue solu-medrol - order nebulizer treatments duonebs q6h - advair 250/50 Objective - Vital Signs/Intake and Output Vital Signs (last 24 hours): Temp Pulse Resp BP Pulse Ox 97.4 F L 62 18 153/72 H 100 01/16/18 14:00 01/16/18 14:00 01/16/18 14:00 01/16/18 14:21 01/16/18 14:00 Intake and Output: 01/16/18 01/16/18 06:59 18:59 Intake Total 200 Balance 200 - Medications Medications: Current Medications Acetaminophen (Tylenol 325mg Tab) 650 mg PO Q6 PRN PRN Reason: Fever >100.4 F Last Admin: 01/13/18 16:41 Dose: 650 mg Albuterol/Ipratropium (Duoneb 3 Mg/0.5 Mg (3 Ml) Ud) 3 ml INH RQ6 [facility] Apixaban (Eliquis) 5 mg PO BID [facility] Last Admin: 01/16/18 14:02 Dose: Not Given Aspirin (Ecotrin) 81 mg PO DAILY [facility] Last Admin: 01/16/18 14:02 Dose: Not Given Cinacalcet (Sensipar) 30 mg PO DAILY [facility] Last Admin: 01/16/18 14:31 Dose: Not Given Docusate Sodium (Colace) 100 mg PO TID [facility] Last Admin: 01/16/18 14:31 Dose: Not Given Famotidine (Pepcid) 20 mg PO DAILY [facility] Last Admin: 01/16/18 14:21 Dose: 20 mg Fluticasone Propionate (Flonase) 1 spr NIKHIL DAILY [facility] Last Admin: 01/16/18 14:22 Dose: 1 spr Losartan Potassium (Cozaar) 50 mg PO DAILY [facility] Last Admin: 01/16/18 14:21 Dose: 50 mg Methylprednisolone (Solu-Medrol) 40 mg IV Q12 [facility] Last Admin: 01/16/18 11:00 Dose: Not Given Metoprolol Tartrate (Lopressor) 25 mg PO BID [facility] Last Admin: 01/16/18 14:21 Dose: 25 mg Montelukast Sodium (Singulair) 10 mg PO DAILY [facility] Last Admin: 01/16/18 14:31 Dose: Not Given Ondansetron HCl (Zofran Inj) 4 mg IVP Q6H PRN PRN Reason: Nausea/Vomiting Last Admin: 01/15/18 02:48 Dose: 4 mg Promethazine HCl/Dextromethorphan (Phenergan Dm Syrup) 5 ml PO Q6H PRN PRN Reason: Cough and congestion Last Admin: 01/16/18 14:23 Dose: 5 ml Rosuvastatin Calcium (Crestor) 5 mg PO HS [facility] Last Admin: 01/15/18 21:39 Dose: Not Given Saccharomyces Boulardii (Florastor) 250 mg PO BID [facility] Last Admin: 01/16/18 14:30 Dose: Not Given Fluticasone/Salmeterol (Advair Diskus 250/50) 1 puff INH RQ12 [facility] Sevelamer Carbonate (Renvela) 800 mg PO TIDCC [facility] Last Admin: 01/16/18 14:20 Dose: 800 mg - Labs Labs: 01/16/18 07:19 01/16/18 07:19 PT 16.4 SECONDS (9.7-12.2) H 01/13/18 08:11 INR 1.4 01/13/18 08:11 APTT 28 SECONDS (21-34) 01/13/18 08:11
[2018-01-16] MEDS: Albuterol-Ipratrop 3 mg / 0.5 (3 ml) UD INH SCH ×2 (16:17→20:51)
--- NOTE | 2018-01-16 17:49 | CP.PCM.PN ---
Subjective - Date & Time of Evaluation Date of Evaluation: 01/16/18 Time of Evaluation: 17:42 - Subjective Subjective: Pt has chronic cough for years now. Pt feels overall better with increased dialysis Echo reveals low normal LV EF, mild pulm HTN normal functioning bio-prosthetic aortic valve. Type II pseudonormal diastolic dysfunction. Objective - Vital Signs/Intake and Output Vital Signs (last 24 hours): Temp Pulse Resp BP Pulse Ox 98.0 F 60 20 144/58 L 97 01/16/18 15:00 01/16/18 15:00 01/16/18 15:00 01/16/18 15:00 01/16/18 15:00 Intake and Output: 01/16/18 01/16/18 06:59 18:59 Intake Total 200 Balance 200 - Medications Medications: Current Medications Acetaminophen (Tylenol 325mg Tab) 650 mg PO Q6 PRN PRN Reason: Fever >100.4 F Last Admin: 01/13/18 16:41 Dose: 650 mg Albuterol/Ipratropium (Duoneb 3 Mg/0.5 Mg (3 Ml) Ud) 3 ml INH RQ6 [facility] Last Admin: 01/16/18 16:17 Dose: 3 ml Apixaban (Eliquis) 5 mg PO BID [facility] Last Admin: 01/16/18 14:02 Dose: Not Given Aspirin (Ecotrin) 81 mg PO DAILY [facility] Last Admin: 01/16/18 14:02 Dose: Not Given Cinacalcet (Sensipar) 30 mg PO DAILY [facility] Last Admin: 01/16/18 14:31 Dose: Not Given Docusate Sodium (Colace) 100 mg PO TID [facility] Last Admin: 01/16/18 14:31 Dose: Not Given Famotidine (Pepcid) 20 mg PO DAILY [facility] Last Admin: 01/16/18 14:21 Dose: 20 mg Fluticasone Propionate (Flonase) 1 spr NIKHIL DAILY [facility] Last Admin: 01/16/18 14:22 Dose: 1 spr Losartan Potassium (Cozaar) 50 mg PO DAILY [facility] Last Admin: 01/16/18 14:21 Dose: 50 mg Methylprednisolone (Solu-Medrol) 40 mg IV Q12 [facility] Last Admin: 01/16/18 11:00 Dose: Not Given Metoprolol Tartrate (Lopressor) 25 mg PO BID [facility] Last Admin: 01/16/18 14:21 Dose: 25 mg Montelukast Sodium (Singulair) 10 mg PO DAILY [facility] Last Admin: 01/16/18 14:31 Dose: Not Given Ondansetron HCl (Zofran Inj) 4 mg IVP Q6H PRN PRN Reason: Nausea/Vomiting Last Admin: 01/15/18 02:48 Dose: 4 mg Promethazine HCl/Dextromethorphan (Phenergan Dm Syrup) 5 ml PO Q6H PRN PRN Reason: Cough and congestion Last Admin: 01/16/18 14:23 Dose: 5 ml Rosuvastatin Calcium (Crestor) 5 mg PO HS [facility] Last Admin: 01/15/18 21:39 Dose: Not Given Saccharomyces Boulardii (Florastor) 250 mg PO BID [facility] Last Admin: 01/16/18 14:30 Dose: Not Given Fluticasone/Salmeterol (Advair Diskus 250/50) 1 puff INH RQ12 [facility] Sevelamer Carbonate (Renvela) 800 mg PO TIDCC [facility] Last Admin: 01/16/18 14:20 Dose: 800 mg - Labs Labs: 01/16/18 07:19 01/16/18 07:19 PT 16.4 SECONDS (9.7-12.2) H 01/13/18 08:11 INR 1.4 01/13/18 08:11 APTT 28 SECONDS (21-34) 01/13/18 08:11 - Constitutional Appears: Chronically Ill - Head Exam Head Exam: ATRAUMATIC - Eye Exam Eye Exam: EOMI - ENT Exam ENT Exam: Mucous Membranes Moist - Respiratory Exam Respiratory Exam: Rhonchi (bilateral rhonchi at both lung bases) - Cardiovascular Exam Cardiovascular Exam: Bradycardia, Murmur (systolic murmur aortic) - GI/Abdominal Exam GI & Abdominal Exam: Soft - Neurological Exam Neurological Exam: Alert, Awake, Oriented x3 - Psychiatric Exam Psychiatric exam: Normal Affect - Skin Skin Exam: Normal Color Assessment and Plan - Assessment and Plan (Free Text) Assessment: 1. No vegetation seen on echo 2. Pt has had dry cough for years, and i suspect laryngeal irritation/damage, possible from cabg, as pt has had work up by ent. he has had dry cough in the office when dry and euvolemic. 3. CXR reports chronic interstitial markings, and there is is no chf on cxr. However, Lungs do not sound clear, with bibasal rhonchi, not rales. If pt does not improve, consider CT of the chest of evaluation (ct that was done was for PE and windows/technique are different and cannot see find lung problems). 4. HTN: will add amlodipine 5 mg.
[2018-01-16] MEDS: Fluticasone-Salmeterol 250-50mcg Diskus INH SCH (20:51)
[2018-01-17] MEDS: Albuterol-Ipratrop 3 mg / 0.5 (3 ml) UD INH SCH ×3 (01:23→13:43)
[2018-01-17 07:43] LABS: BASO % 0.1 % (0.0-2.0); HEMOGLOBIN 10.2 g/dL (12.0-18.0); LYMPH % 6.6 % (20.0-40.0); MEAN CELL VOLUME 97.7 fL (80.0-94.0); MEAN CORPUSCULAR HEMOGLOBIN 32.8 pg (27.0-31.0); MEAN CORPUSCULAR HGB CONC 33.5 g/dL (33.0-37.0); MEAN PLATELET VOLUME 10.7 fL (7.2-11.7); MONO # 0.9 K/uL (0.0-0.8); MONO % 5.4 % (0.0-10.0); NEUT # 13.8 K/uL (1.8-7.0); NEUT % 87.9 % (50.0-75.0); NRBC % 0.5 % (0.0-2.0); PLATELET COUNT 196 K/uL (130-400); RBC 3.13 Mil/uL (4.40-5.90); RED CELL DISTRIBUTION WIDTH 16.4 % (11.5-14.5); WHITE BLOOD COUNT 15.8 K/uL (4.8-10.8)
[2018-01-17 07:50] LABS: ALB/GLOB RATIO 1.1 (1.0-2.1); ALBUMIN 3.9 g/dL (3.5-5.0)
[2018-01-17] MEDS: Fluticasone-Salmeterol 250-50mcg Diskus INH SCH (07:51)
[2018-01-17 08:44] LABS: LYMPHOCYTE 8 % (20-40); MONOCYTE 4 % (0-10); MYELOCYTE 1 % (0-0); NEUTROPHIL 86 % (50-75); NUCLEATED RED BLOOD CELL 1 % (0-0); PLATELET ESTIMATE NORMAL (NORMAL); REACTIVE LYMPHOCYTES 1 % (0-0); TOTAL CELLS COUNTED 100
[2018-01-17 08:47] LABS: ANISOCYTOSIS SLIGHT; HYPOCHROMIC SLIGHT; POIKILOCYTOSIS SLIGHT
[2018-01-17 08:48] LABS: LARGE PLATELETS PRESENT; MICROCYTOSIS SLIGHT
--- NOTE | 2018-01-17 09:23 | CP.PCM.PN ---
Subjective - Date & Time of Evaluation Date of Evaluation: 01/17/18 Time of Evaluation: 08:30 - Subjective Subjective: Hospitalist Progress Note Patient was seen and examined at 8:30 AM 01/17/18 [id number] Upon FULL ROS NO dysphagia/odynopahgia NO soreness in throat Cough that is dry and is now a "half" cough since last night. NO sinus/nasal congestion NO fever/chills NO muscle aches/pains NO joint pain NO chest pain/palpations (+) SOB when he walks short distances NO abdominal pain NO n/v/d/c: last normal bowel movement was yesterday and there was NO blood NO burning pain with urination NO ADEN NO lightheadedness/dizziness NO paresthesias Exam: General: AAOX3, NAD, Speaking in full sentences HEENT: NCA, EOMI, PERRLA, NO cervical/supraclavicular/submandibular lymphadenopathy, NO pharyngeal erythema/exudate, Nasal Turbinates are nonerythematous/nonedematous, Oral Mucosa is moist Cardio: NS1 and NS2, NO M/R/G Resp: Bilateral Lower Lobe Expiratory Rhonchi GI: BSx4, Soft, NT, NO HSM, NO guarding/rebound tenderness Ext: Pulses are strong and equal, Capillary Refill is 2 seconds, NO edema Neuro: CN II through XII are grossly intact Assessments: 1). Chronic Cough since CABG 2 years ago 2). Leukocytosis 3). ESRD on HD via Left Arm AV Fistula T--S (outpatient at [facility]) 4). CAD S/P CABG 2 years ago with recent revision of sternum (November 2017 as per patient) 5). 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 HLD 7). Atrial Fibrillation 8). Elevated Troponin: secondary to ESRD 9). Left Renal Simple Cysts 10). Hyponatremia 11). Elevated LFTs: likely secondary to Rocephin and Azithromycin antibiotic use during admission 12). AAA (present for 10 years as per patient) NO oxygen desaturation after 6 minute walk: SPO2 remained 97% The patient is stable from Respiratory, Cardiac, Renal, and Medical Standpoint. The following instructions were explained to patient and a copy will be provided to him upon discharge: 1). Schedule follow up with your Primary Care Physician Dr. Bennett to help coordinate your health care. Please bring your discharge paperwork with you to your appointment with Dr. Bennett for his review. 2). Through Dr. Bennett's office you will need to arrange the following: Repeat Ultrasound of Kidneys in 6 to 12 months to make sure that your cysts have not grown in size. Referral and recommendation for Ear, Nose, and Throat specialist of Dr. Bennett' s choice for second opinion concerning your cough. Referral for outpatient physical therapy as you declined to be transferred to subacute rehab from the hospital. 3). Schedule follow up with your Lung Pysician Dr. Cyr by calling his office at [phone]. This follow up should take place in the next 10 days. 4). Schedule follow up with your Heart Physician Dr. Kirk by calling his office at [phone]. This follow up should take place in the next 10 days. 5). Schedule follow up with Vascular Surgeon Dr. Mauricio as instructed by Dr. Bennett for repeat imaging of your abdomen for monitoring of your abdominal aneurysm which should take place in the next 6 [address] Mauricio's office number is [phone]. 6). Please have the following prescriptions filled at your pharmacy on your way home from the hospital and take as directed. These are the only medications that you should be taking: Eliquis 5 mg, 1 tablet by mouth 2x/day (breakfast and dinner), Dispense #60, NO refills Aspirin 81 mg, 1 tablet by mouth 1x/day (lunch), Dispense #30, NO refills Sensipar 30 mg, 1 tablet by mouth 1x/day (breakfast), Dispense #30, NO refills Colace 100 mg, 1 tablet by mouth 3x/day (breakfast, lunch, dinner), Dispense #90 , NO refills Advair 250/50 mcg/actuation, 1 inhalation by mouth 2x/day (breakfast and dinner) , Dispense #1, NO refills Ipratropium 17 mcg/actuation, 2 inhalations by mouth every 6 hours ONLY NEEDED for severe shortness of breath/wheezing, Dispense #1, NO refills Losartan 50 mg, 1 tablet by mouth 1x/day (lunch), Dispense #30, NO refills Metoprolol Tartrate 25 mg, 1 tablet by mouth 2x/day (breakfast and dinner), Dispense #60, NO refills Singulair 10 mg, 1 tablet by mouth 1x/day (dinner), Dispense #30, NO refills Crestor 5 mg, 1 tablet by mouth 1x/day (dinner), Dispense #30, NO refills Renvela 800 mg, 1 tablet by mouth 3x/day (breakfast, lunch, dinner), Dispense # 90, NO refills Amlodipine 5 mg, 1 tablet by mouth 1x/day (lunch), Dispense #30, NO refills Prednisone 10 mg, 5 tablets by mouth 1x/day (breakfast) on 01/18/18, 4 tablets by mouth 1x/day (breakfast) on 01/19/18, 3 tablets by mouth 1x/day (breakfast) on 01/20/18, 2 tablets by mouth 1x/day (breakfast) on 01/21/18, 1 tablet by mouth 1x/day (breakfast) on 01/22/18, Dispense #15, NO refills 7). Please follow the instructions above. Failure to do so will cause serious harm to your health. 8). Please take care and be well. Julius Horn D.O. Objective - Vital Signs/Intake and Output Vital Signs (last 24 hours): Temp Pulse Resp BP Pulse Ox 97.4 F L 60 18 157/56 H 99 01/17/18 07:50 01/17/18 07:50 01/17/18 07:50 01/17/18 07:50 01/17/18 07:50 - Medications Medications: Current Medications Acetaminophen (Tylenol 325mg Tab) 650 mg PO Q6 PRN PRN Reason: Fever >100.4 F Last Admin: 01/13/18 16:41 Dose: 650 mg Albuterol/Ipratropium (Duoneb 3 Mg/0.5 Mg (3 Ml) Ud) 3 ml INH RQ6 [facility] Last Admin: 01/17/18 07:31 Dose: 3 ml Apixaban (Eliquis) 5 mg PO BID [facility] Last Admin: 01/16/18 18:32 Dose: 5 mg Aspirin (Ecotrin) 81 mg PO DAILY [facility] Last Admin: 01/16/18 14:02 Dose: Not Given Cinacalcet (Sensipar) 30 mg PO DAILY [facility] Last Admin: 01/16/18 14:31 Dose: Not Given Docusate Sodium (Colace) 100 mg PO TID [facility] Last Admin: 01/16/18 18:35 Dose: Not Given Famotidine (Pepcid) 20 mg PO DAILY [facility] Last Admin: 01/16/18 14:21 Dose: 20 mg Fluticasone Propionate (Flonase) 1 spr NIKHIL DAILY [facility] Last Admin: 01/16/18 14:22 Dose: 1 spr Losartan Potassium (Cozaar) 50 mg PO DAILY [facility] Last Admin: 01/16/18 14:21 Dose: 50 mg Methylprednisolone (Solu-Medrol) 40 mg IV Q12 [facility] Last Admin: 01/16/18 22:27 Dose: 40 mg Metoprolol Tartrate (Lopressor) 25 mg PO BID [facility] Last Admin: 01/16/18 18:33 Dose: 25 mg Montelukast Sodium (Singulair) 10 mg PO DAILY [facility] Last Admin: 01/16/18 14:31 Dose: Not Given Ondansetron HCl (Zofran Inj) 4 mg IVP Q6H PRN PRN Reason: Nausea/Vomiting Last Admin: 01/15/18 02:48 Dose: 4 mg Promethazine HCl/Dextromethorphan (Phenergan Dm Syrup) 5 ml PO Q6H PRN PRN Reason: Cough and congestion Last Admin: 01/16/18 20:21 Dose: 5 ml Rosuvastatin Calcium (Crestor) 5 mg PO HS [facility] Last Admin: 01/16/18 22:27 Dose: 5 mg Saccharomyces Boulardii (Florastor) 250 mg PO BID [facility] Last Admin: 01/16/18 18:34 Dose: 250 mg Fluticasone/Salmeterol (Advair Diskus 250/50) 1 puff INH RQ12 [facility] Last Admin: 01/17/18 07:51 Dose: Not Given Sevelamer Carbonate (Renvela) 800 mg PO TIDCC [facility] Last Admin: 01/17/18 08:10 Dose: 800 mg - Labs Labs: 01/17/18 07:30 01/17/18 07:30 PT 16.4 SECONDS (9.7-12.2) H 01/13/18 08:11 INR 1.4 01/13/18 08:11 APTT 28 SECONDS (21-34) 01/13/18 08:11
[2018-01-17 10:33] VITALS: PULSE 64
[2018-01-17] MEDS: Fluticasone Nasal 50 mcg/Spray NAS SCH (10:33)
[2018-01-17] MEDS: MethylPREDNISolone 40 mg Vial IV SCH (10:33)
[2018-01-17] MEDS: Saccharomyces Boulardi 250 mg Cap PO SCH (10:36)
--- NOTE | 2018-01-17 13:01 | CP.PCM.CON ---
History of Present Illness - History of Present Illness History of Present Illness: Mr Jose is a 83 year old male with past medical history of CAD s/ p CABG in 2016, ESRD on HD T,Th, Sat, HLD, A fib on eliquis who presented to hospital for cough. Surgery has been consulted for a 4.4 x 4.1 cm aneurysmal aortic dilation seen by an ultrasound performed on 01/15/18. There are no prior ultrasounds or abdominal imaging in the EMR for comparison. On review of systems patient still reports a mild cough and states he gets short of breath upon ambulation - however per medicine note patient does not desaturate on ambulation. He did not offer any other complaints. He denied abdominal pain or pulsatile masses in the abdomen. Pmhx: stated above PSHx: Appendectomy at age 19, Prostectomy 2001, Hernia repair 2003, Coronary Stent 2009, Thoracentesis 2015, CABG 2015, Aortic Valve replacement 2015, ablations in the past, Chest wall scar reconstruction 11/2017 Allergies: Morphine FamHx: Father had MD, DM2; Mother had MD, DM2 Social: Never smoked; Non-drinker; No illicit drugs; Lives with at home PMD: Dr Bennett Instructional Coordinator: Dr Kirk Ham Stripper: Dr Higuera Knox Medications: Crestor 5mg PO daily, Cozaar 50mg PO daily, Eliquis 5mg PO BID , Renvela 800mg PO TID, Lopressor 25mg PO BID, singulair 10 mg po qd, Sensipar 30 mg po qd, Aspirin 81 mg po qd Review of Systems - Constitutional Constitutional: absent: Chills, Fever - Cardiovascular Cardiovascular: absent: Chest Pain - Respiratory Respiratory: Dyspnea on Exertion - Gastrointestinal Gastrointestinal: absent: Abdominal Pain, Diarrhea, Nausea, Vomiting - Genitourinary Genitourinary: absent: Dysuria Past Patient History - Infectious Disease Hx of Infectious Diseases: None - Past Medical History & Family History Past Medical History?: Yes - Past Social History Smoking Status: Never Smoked - CARDIAC Hx Cardiac Disorders: Yes (CAD, CABG/AVR 2015, Coronary stent) Hx Hypercholesterolemia: Yes Hx Hypertension: Yes - PULMONARY Hx Respiratory Disorders: Yes Other/Comment: left pleural effusion - NEUROLOGICAL Hx Neurological Disorder: No - HEENT Hx HEENT Problems: Yes Hx Cataracts: Yes (cataract surgery) - RENAL Hx Renal Failure: Yes (ESRD, CKD) - ENDOCRINE/METABOLIC Hx Endocrine Disorders: No - HEMATOLOGICAL/ONCOLOGICAL Hx Blood Disorders: No Hx Blood Transfusions: Yes Hx Blood Transfusion Reaction: No - INTEGUMENTARY Hx Dermatological Problems: No - MUSCULOSKELETAL/RHEUMATOLOGICAL Hx Falls: No - GASTROINTESTINAL Hx Gastrointestinal Disorders: Yes Hx Constipation: Yes - GENITOURINARY/GYNECOLOGICAL Hx Genitourinary Disorders: Yes Hx Prostate Problems: Yes (removed at 67, 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.) - PSYCHIATRIC Hx Substance Use: No - SURGICAL HISTORY Hx Surgeries: Yes Hx Appendectomy: Yes Hx Coronary Artery Bypass Graft: Yes Hx Coronary Stent: Yes Other/Comment: left thumb surgery 17 years old - ANESTHESIA Hx Anesthesia: Yes Hx Anesthesia Reactions: No Hx Malignant Hyperthermia: No Has any member of the family had a problem w/ anesthesia?: No Meds Home Medications: Home Medication List Medication Instructions Recorded Confirmed Type Apixaban [Eliquis] 5 mg PO BID #60 tablet 01/17/18 Rx Aspirin [Ecotrin] 81 mg PO DAILY 30 Days #30 tabec 01/17/18 Rx Cinacalcet [Sensipar] 30 mg PO DAILY #30 tab 01/17/18 Rx Docusate [Colace] 100 mg PO TID #90 cap 01/17/18 Rx Fluticasone/Salmeterol 250/50 1 puff INH RQ12 #1 dsk 01/17/18 Rx [Advair Diskus 250/50] Ipratropium [Atrovent] 0.018 mg IH Q6H #1 inhaler 01/17/18 Rx Losartan [Cozaar] 50 mg PO DAILY #30 tab 01/17/18 Rx Metoprolol Tartrate [Lopressor] 25 mg PO BID 30 Days #60 tab 01/17/18 Rx Montelukast Sodium [Singulair] 10 mg PO DAILY #30 tablet 01/17/18 Rx Rosuvastatin Calcium [Crestor] 5 mg PO DAILY #30 tab 01/17/18 Rx Sevelamer Carbonate [Renvela] 800 mg PO TID #90 tab 01/17/18 Rx amLODIPine [Norvasc] 5 mg PO DAILY #30 tab 01/17/18 Rx predniSONE [predniSONE Tab] 10 mg PO DAILY #15 tab 01/17/18 Rx Allergies/Adverse Reactions: Allergies Allergy/AdvReac Type Severity Reaction Status Date / Time morphine Allergy VOMITING Verified 04/13/18 11:00 - Medications Medications: Current Medications Acetaminophen (Tylenol 325mg Tab) 650 mg PO Q6 PRN PRN Reason: Fever >100.4 F Last Admin: 01/13/18 16:41 Dose: 650 mg Albuterol/Ipratropium (Duoneb 3 Mg/0.5 Mg (3 Ml) Ud) 3 ml INH RQ6 [facility] Last Admin: 01/17/18 07:31 Dose: 3 ml Apixaban (Eliquis) 5 mg PO BID [facility] Last Admin: 01/17/18 10:35 Dose: 5 mg Aspirin (Ecotrin) 81 mg PO DAILY [facility] Last Admin: 01/17/18 10:36 Dose: Not Given Cinacalcet (Sensipar) 30 mg PO DAILY [facility] Last Admin: 01/17/18 10:34 Dose: 30 mg Docusate Sodium (Colace) 100 mg PO TID [facility] Last Admin: 01/17/18 10:36 Dose: Not Given Famotidine (Pepcid) 20 mg PO DAILY [facility] Last Admin: 01/17/18 10:34 Dose: 20 mg Fluticasone Propionate (Flonase) 1 spr NIKHIL DAILY [facility] Last Admin: 01/17/18 10:33 Dose: 1 spr Losartan Potassium (Cozaar) 50 mg PO DAILY [facility] Last Admin: 01/17/18 10:34 Dose: 50 mg Methylprednisolone (Solu-Medrol) 40 mg IV Q12 [facility] Last Admin: 01/17/18 10:33 Dose: 40 mg Metoprolol Tartrate (Lopressor) 25 mg PO BID [facility] Last Admin: 01/17/18 10:34 Dose: 25 mg Montelukast Sodium (Singulair) 10 mg PO DAILY [facility] Last Admin: 01/17/18 10:35 Dose: 10 mg Ondansetron HCl (Zofran Inj) 4 mg IVP Q6H PRN PRN Reason: Nausea/Vomiting Last Admin: 01/15/18 02:48 Dose: 4 mg Promethazine HCl/Dextromethorphan (Phenergan Dm Syrup) 5 ml PO Q6H PRN PRN Reason: Cough and congestion Last Admin: 01/16/18 20:21 Dose: 5 ml Rosuvastatin Calcium (Crestor) 5 mg PO HS [facility] Last Admin: 01/16/18 22:27 Dose: 5 mg Saccharomyces Boulardii (Florastor) 250 mg PO BID [facility] Last Admin: 01/17/18 10:36 Dose: Not Given Fluticasone/Salmeterol (Advair Diskus 250/50) 1 puff INH RQ12 [facility] Last Admin: 01/17/18 07:51 Dose: Not Given Sevelamer Carbonate (Renvela) 800 mg PO TIDCC [facility] Last Admin: 01/17/18 08:10 Dose: 800 mg Physical Exam - Constitutional Appears: Well, No Acute Distress - Head Exam Head Exam: ATRAUMATIC, NORMAL INSPECTION - Eye Exam Eye Exam: EOMI - ENT Exam ENT Exam: Mucous Membranes Moist - Respiratory Exam Respiratory Exam: Rhonchi - Cardiovascular Exam Cardiovascular Exam: +S1, +S2. absent: Systolic Murmur - GI/Abdominal Exam GI & Abdominal Exam: Normal Bowel Sounds, Soft. absent: Tenderness Additional comments: GI: BSx4, Soft, NT, NO HSM, NO guarding/rebound tenderness - Extremities Exam Extremities exam: Positive for: normal inspection - Neurological Exam Neurological exam: Oriented x3 - Skin Skin Exam: Intact, Normal Color, Warm Results - Vital Signs Recent Vital Signs: Last Vital Signs Temp 97.4 F L 01/17/18 07:50 Pulse 64 01/17/18 10:32 Resp 18 01/17/18 07:50 BP 152/68 H 01/17/18 10:34 Pulse Ox 99 01/17/18 07:50 - Labs Result Diagrams: 01/17/18 07:30 01/17/18 07:30 Labs: Laboratory Results - last 24 hr 01/17/18 01/17/18 07:30 07:30 WBC 15.8 H RBC 3.13 L Hgb 10.2 L Hct 30.6 L MCV 97.7 H MCH 32.8 H MCHC 33.5 RDW 16.4 H Plt Count 196 MPV 10.7 Neut % (Auto) 87.9 H Lymph % (Auto) 6.6 L [place] % (Auto) 5.4 Eos % (Auto) 0.0 Baso % (Auto) 0.1 Neut # (Auto) 13.8 H Lymph # (Auto) 1.0 [place] # (Auto) 0.9 H Eos # (Auto) 0.0 Baso # (Auto) 0.0 Neutrophils % (Manual) 86 H Lymphocytes % (Manual) 8 L Reactive Lymphs % 1 H Monocytes % (Manual) 4 Myelocytes % 1 H Nucleated RBC % 1 H Platelet Estimate Normal Large Platelets Present Hypochromasia (manual) Slight Poikilocytosis (manual Slight Anisocytosis (manual) Slight Microcytosis (manual) Slight Macrocytosis (manual) Slight Sodium 137 Potassium 4.1 Chloride 88 L Carbon Dioxide 27 Anion Gap 26 H BUN 73 H Creatinine 6.9 H Est GFR ( Amer) 9 Est GFR (Non-Af Amer) 8 Random Glucose 167 H Calcium 8.0 L Phosphorus 5.1 H Magnesium 2.4 H Total Bilirubin 0.9 AST 85 H D ALT 127 H Alkaline Phosphatase 158 H Total Protein 7.4 Albumin 3.9 Globulin 3.5 Albumin/Globulin Ratio 1.1 Assessment & Plan - Assessment and Plan (Free Text) Assessment: A/P: 83 year old Male with a PMHx of CAD s/p CABG in 2015, ESRD on HD T,Th, Sat, HLD , A fib on eliquis, with aortic abdominal aneurysm: -Ultrasound 01/15/18 shows Aneurysmal dilatation of the abdominal aorta with maximum diameter 4.4 x 4.1 cm. -Repair not indicated at this time. -Per screening guidelines, a repeat Ultrasound should be performed in 6-12 months. This was explained to the patient. -Outpatient follow-up. D/W Dr Mauricio.
[2018-01-17 13:40] VITALS: BP 137/66; RESP 20; TEMP 97.9; O2SAT 95
--- NOTE | 2018-01-17 14:08 | CP.PCM.CON ---
History of Present Illness - History of Present Illness History of Present Illness: Palliative consult requested by Doctor Cydney Horn for goals of care discussion Patient is a 83 yo male admitted from home with worsening cough X 1 week. patient had had a chronic dry cough, since CABG procedure in 2016. By the end of last year patient had 3 more procedures on his heart including oblation. Patient feels, ever since original procedure he has never return to his normal health. He feels, he is still recovering from all those procedures. Upon this admission CT chest and CT sinuses all were negative. WBC 17.1 on admission, dropping to 15.8 today, Procalcitonin elevated at 2.08. The definite diagnosis of infection not made yet. Hb 10.2 chronically low, most likly due to long use of Eliquis PMH: chronic cough, CAD, ESRD with HD Fam. 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 Hx: Younger brother with heart problems Review of Systems - Constitutional Constitutional: absent: As Per HPI, Anorexia, Chills, Daytime Sleepiness, Excessive Sweating, Fatigue, Fever, Frequent Falls, Headache, Increased Appetite , Lethargy, Malaise, Night Sweats, Snoring, Sleep Apnea, Weight Gain, Weight Loss, Weakness, Other - EENT Eyes: absent: As Per HPI, Blind Spots, Blurred Vision, Change in Vision, Decreased Night Vision, Diplopia, Discharge, Dry Eye, Exophthalmos, Floaters, Irritation, Itchy Eyes, Loss of Peripheral Vision, Pain, Photophobia, Requires Corrective Lenses, Sees Flashes, Spots in Vision, Tunnel Vision, Other Visual Disturbances, Loss of Vision, Other Ears: absent: As Per HPI, Decreased Hearing, Ear Discharge, Ear Pain, Tinnitus, Abnormal Hearing, Disequilibrium, Dizziness, Other Nose/Mouth/Throat: absent: As Per HPI, Epistaxis, Nasal Congestion, Nasal Discharge, Nasal Obstruction, Nasal Trauma, Nose Pain, Post Nasal Drip, Sinus Pain, Sinus Pressure, Bleeding Gums, Change in Voice, Dental Pain, Dry Mouth, Dysphagia, Halitosis, Hoarsness, Lip Swelling, Mouth Lesions, Mouth Pain, Odynophagia, Sore Throat, Throat Swelling, Tongue Swelling, Facial Pain, Neck Pain, Neck Mass, Other - Cardiovascular Cardiovascular: absent: As Per HPI, Acrocyanosis, Chest Pain, Chest Pain at Rest , Chest Pain with Activity, Claudication, Diaphoresis, Dyspnea, Dyspnea on Exertion, Edema, Irregular Heart Rhythm, Pain Radiating to Arm/Neck/Jaw, Leg Edema, Leg Ulcers, Lightheadedness, Orthopnea, Palpitations, Paroxysmal Nocturnal Dyspnea, Pedal Edema, Radiating Pain, Rapid Heart Rate, Slow Heart Rate, Syncope, Other - Respiratory Respiratory: Cough - Gastrointestinal Gastrointestinal: absent: As Per HPI, Abdominal Pain, Belching, Bloating, Change in Bowel Habits, Change in Stool Character, Coffee Ground Emesis, Constipation, Cramping, Diarrhea, Dyspepsia, Dysphagia, Early Satiety, Excessive Flatus, Fecal Incontinence, Heartburn, Hematemesis, Hematochezia, Loose Stools, Melena, Nausea, Odynophagia, Temesmus, Vomiting, Other - Genitourinary Genitourinary: absent: As Per HPI, Change in Urinary Stream, Difficulty Urinating, Dysuria, Flank Pain, Hematuria, Pyuria, Nocturia, Urinary Incontinence, Urinary Frequency, Urinary Hesitance, Urinary Urgency, Voiding Freq/Small Amts, Freq UTI, Hx Renal/Bladder Calculi, Hx /Renal Surgery, Bladder Distension, Other - Musculoskeletal Musculoskeletal: absent: As Per HPI, Abnormal Gait, Arthralgias, Atrophy, Back Pain, Deformity, Joint Swelling, Limited Range of Motion, Loss of Height, Muscle Cramps, Muscle Weakness, Myalgias, Neck Pain, Numbness, Radiating Pain into Limb, Stiffness, Tingling, Other - Integumentary Integumentary: absent: As Per HPI, Acne, Alopecia, Bleeding Lesions, Change in Hair, Change in Nails, Change in Pigmentation, Changing Lesions, Dry Skin, Erythema, Furuncle, Hirsutism, Lesions, New Lesions, Non-Healing Lesions, Photosensitivity, Pruritus, Rash, Skin Pain, Skin Ulcer, Sores, Striae, Swelling , Unusual Bruising, Wounds, Jaundice, Other - Neurological Neurological: absent: As Per HPI, Abnormal Gait, Abnormal Hearing, Abnormal Movements, Abnormal Speech, Behavioral Changes, Burning Sensations, Confusion, Convulsions, Disequilibrium, Dizziness, Numbness, Focal Weakness, Frequent Falls , Headaches, Lack of Coordination, Loss of Vision, Memory Loss, Paresthesias, Radicular Pain, Restless Legs, Sensory Deficit, Syncope, Tingling, Tremor, Vertigo, Weakness, Other Visual Disturbances, Other - Psychiatric Psychiatric: absent: As Per HPI, Abnormal Sleep Pattern, Anhedonia, Anxiety, Auditory Hallucinations, Behavioral Changes, Change in Appetite, Change in Libido, Confusion, Depression, Difficulty Concentrating, Hallucinations, Homicidal Ideation, Hopelessness, Irritability, Memory Loss, Mood Swings, Panic Attacks, Paranoia, Suicidal Ideation, Visual Hallucinations, Tactile Hallucinations, Other - Endocrine Endocrine: absent: As Per HPI, Change in Body Appearance, Change in Libido, Cold Intolorance, Deepening of Voice, Excessive Sweating, Fatigue, Flushing, Heat Intolorance, Increase in Ring/Shoe/Hat Size, Palpitations, Polydipsia, Polyphagia, Polyuria, Other - Hematologic/Lymphatic Hematologic: Easy Bleeding Past Patient History - Infectious Disease Hx of Infectious Diseases: None - Past Medical History & Family History Past Medical History?: Yes - Past Social History Smoking Status: Never Smoked - CARDIAC Hx Cardiac Disorders: Yes (CAD, CABG/AVR 2015, Coronary stent) Hx Hypercholesterolemia: Yes Hx Hypertension: Yes - PULMONARY Hx Respiratory Disorders: Yes Other/Comment: left pleural effusion - NEUROLOGICAL Hx Neurological Disorder: No - HEENT Hx HEENT Problems: Yes Hx Cataracts: Yes (cataract surgery) - RENAL Hx Renal Failure: Yes (ESRD, CKD) - ENDOCRINE/METABOLIC Hx Endocrine Disorders: No - HEMATOLOGICAL/ONCOLOGICAL Hx Blood Disorders: No Hx Blood Transfusions: Yes Hx Blood Transfusion Reaction: No - INTEGUMENTARY Hx Dermatological Problems: No - MUSCULOSKELETAL/RHEUMATOLOGICAL Hx Falls: No - GASTROINTESTINAL Hx Gastrointestinal Disorders: Yes Hx Constipation: Yes - GENITOURINARY/GYNECOLOGICAL Hx Genitourinary Disorders: Yes Hx Prostate Problems: Yes (removed at 67, 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.) - PSYCHIATRIC Hx Substance Use: No - SURGICAL HISTORY Hx Surgeries: Yes Hx Appendectomy: Yes Hx Coronary Artery Bypass Graft: Yes Hx Coronary Stent: Yes Other/Comment: left thumb surgery 17 years old - ANESTHESIA Hx Anesthesia: Yes Hx Anesthesia Reactions: No Hx Malignant Hyperthermia: No Has any member of the family had a problem w/ anesthesia?: No Meds Home Medications: Home Medication List Medication Instructions Recorded Confirmed Type Apixaban [Eliquis] 5 mg PO BID #60 tablet 01/17/18 Rx Aspirin [Ecotrin] 81 mg PO DAILY 30 Days #30 tabec 01/17/18 Rx Cinacalcet [Sensipar] 30 mg PO DAILY #30 tab 01/17/18 Rx Docusate [Colace] 100 mg PO TID #90 cap 01/17/18 Rx Fluticasone/Salmeterol 250/50 1 puff INH RQ12 #1 dsk 01/17/18 Rx [Advair Diskus 250/50] Ipratropium [Atrovent] 0.018 mg IH Q6H #1 inhaler 01/17/18 Rx Losartan [Cozaar] 50 mg PO DAILY #30 tab 01/17/18 Rx Metoprolol Tartrate [Lopressor] 25 mg PO BID 30 Days #60 tab 01/17/18 Rx Montelukast Sodium [Singulair] 10 mg PO DAILY #30 tablet 01/17/18 Rx Rosuvastatin Calcium [Crestor] 5 mg PO DAILY #30 tab 01/17/18 Rx Sevelamer Carbonate [Renvela] 800 mg PO TID #90 tab 01/17/18 Rx amLODIPine [Norvasc] 5 mg PO DAILY #30 tab 01/17/18 Rx predniSONE [predniSONE Tab] 10 mg PO DAILY #15 tab 01/17/18 Rx Allergies/Adverse Reactions: Allergies Allergy/AdvReac Type Severity Reaction Status Date / Time morphine Allergy VOMITING Verified 01/12/18 11:00 - Medications Medications: Current Medications Acetaminophen (Tylenol 325mg Tab) 650 mg PO Q6 PRN PRN Reason: Fever >100.4 F Last Admin: 01/13/18 16:41 Dose: 650 mg Albuterol/Ipratropium (Duoneb 3 Mg/0.5 Mg (3 Ml) Ud) 3 ml INH RQ6 [facility] Last Admin: 01/17/18 13:43 Dose: Not Given Apixaban (Eliquis) 5 mg PO BID [facility] Last Admin: 01/17/18 10:35 Dose: 5 mg Aspirin (Ecotrin) 81 mg PO DAILY [facility] Last Admin: 01/17/18 10:36 Dose: Not Given Cinacalcet (Sensipar) 30 mg PO DAILY [facility] Last Admin: 01/17/18 10:34 Dose: 30 mg Docusate Sodium (Colace) 100 mg PO TID [facility] Last Admin: 01/17/18 13:07 Dose: Not Given Famotidine (Pepcid) 20 mg PO DAILY [facility] Last Admin: 01/17/18 10:34 Dose: 20 mg Fluticasone Propionate (Flonase) 1 spr NIKHIL DAILY [facility] Last Admin: 01/17/18 10:33 Dose: 1 spr Losartan Potassium (Cozaar) 50 mg PO DAILY [facility] Last Admin: 01/17/18 10:34 Dose: 50 mg Methylprednisolone (Solu-Medrol) 40 mg IV Q12 [facility] Last Admin: 01/17/18 10:33 Dose: 40 mg Metoprolol Tartrate (Lopressor) 25 mg PO BID [facility] Last Admin: 01/17/18 10:34 Dose: 25 mg Montelukast Sodium (Singulair) 10 mg PO DAILY [facility] Last Admin: 01/17/18 10:35 Dose: 10 mg Ondansetron HCl (Zofran Inj) 4 mg IVP Q6H PRN PRN Reason: Nausea/Vomiting Last Admin: 01/15/18 02:48 Dose: 4 mg Promethazine HCl/Dextromethorphan (Phenergan Dm Syrup) 5 ml PO Q6H PRN PRN Reason: Cough and congestion Last Admin: 01/16/18 20:21 Dose: 5 ml Rosuvastatin Calcium (Crestor) 5 mg PO HS [facility] Last Admin: 01/16/18 22:27 Dose: 5 mg Saccharomyces Boulardii (Florastor) 250 mg PO BID [facility] Last Admin: 01/17/18 10:36 Dose: Not Given Fluticasone/Salmeterol (Advair Diskus 250/50) 1 puff INH RQ12 [facility] Last Admin: 01/17/18 07:51 Dose: Not Given Sevelamer Carbonate (Renvela) 800 mg PO TIDCC [facility] Last Admin: 01/17/18 13:00 Dose: 800 mg Physical Exam - Constitutional Appears: Chronically Ill - Head Exam Head Exam: ATRAUMATIC, NORMAL INSPECTION, NORMOCEPHALIC - Eye Exam Eye Exam: EOMI, Normal appearance, PERRL Pupil Exam: NORMAL ACCOMODATION, PERRL - ENT Exam ENT Exam: Mucous Membranes Moist, Normal Exam - Neck Exam Neck exam: Positive for: Normal Inspection - Respiratory Exam Respiratory Exam: Clear to Auscultation Bilateral, NORMAL BREATHING PATTERN - Cardiovascular Exam Cardiovascular Exam: REGULAR RHYTHM - GI/Abdominal Exam GI & Abdominal Exam: Normal Bowel Sounds, Soft - Rectal Exam Rectal Exam: Deferred - Extremities Exam Extremities exam: Positive for: normal inspection - Back Exam Back exam: NORMAL INSPECTION - Neurological Exam Neurological exam: Alert, Normal Gait, Oriented x3, Reflexes Normal - Psychiatric Exam Psychiatric exam: Normal Affect, Normal Mood - Skin Skin Exam: Dry, Normal Color, Warm Results - Vital Signs Recent Vital Signs: Last Vital Signs Temp 97.9 F 01/17/18 13:40 Pulse 64 01/17/18 13:40 Resp 20 01/17/18 13:40 BP 137/66 01/17/18 13:40 Pulse Ox 95 01/17/18 13:40 - Labs Result Diagrams: 01/17/18 07:30 01/17/18 07:30 Labs: Laboratory Results - last 24 hr 01/17/18 01/17/18 07:30 07:30 WBC 15.8 H RBC 3.13 L Hgb 10.2 L Hct 30.6 L MCV 97.7 H MCH 32.8 H MCHC 33.5 RDW 16.4 H Plt Count 196 MPV 10.7 Neut % (Auto) 87.9 H Lymph % (Auto) 6.6 L [place] % (Auto) 5.4 Eos % (Auto) 0.0 Baso % (Auto) 0.1 Neut # (Auto) 13.8 H Lymph # (Auto) 1.0 [place] # (Auto) 0.9 H Eos # (Auto) 0.0 Baso # (Auto) 0.0 Neutrophils % (Manual) 86 H Lymphocytes % (Manual) 8 L Reactive Lymphs % 1 H Monocytes % (Manual) 4 Myelocytes % 1 H Nucleated RBC % 1 H Platelet Estimate Normal Large Platelets Present Hypochromasia (manual) Slight Poikilocytosis (manual Slight Anisocytosis (manual) Slight Microcytosis (manual) Slight Macrocytosis (manual) Slight Sodium 137 Potassium 4.1 Chloride 88 L Carbon Dioxide 27 Anion Gap 26 H BUN 73 H Creatinine 6.9 H Est GFR ( Amer) 9 Est GFR (Non-Af Amer) 8 Random Glucose 167 H Calcium 8.0 L Phosphorus 5.1 H Magnesium 2.4 H Total Bilirubin 0.9 AST 85 H D ALT 127 H Alkaline Phosphatase 158 H Total Protein 7.4 Albumin 3.9 Globulin 3.5 Albumin/Globulin Ratio 1.1 Assessment & Plan - Assessment and Plan (Free Text) Assessment: Palliative consult Code status Full Code, No Advance directive on chart, PPS 70% I reviewed medical records, all diagnostic studies, examined and interviewed patient in the bed. Patient is alert, oriented x 3, in no acute distress, looking well for stated age. Skin is dry and intact, pale, hb 10.2. Breath sounds diminished to bases. Dry cough elicited by talking or laying flat in the bed. Cough decreases if patient in upright position or slightly tilted over. Patient had noticed same problems at home when sleeps on flat pillow. Climbing the stairs also become difficult. patient believes he had retained fluids since after more agressive HD his breathing improved, but never had edema to LEs. Abdomen flat, active bowel sounds, denies constipation, tolerates diet. Able to freely move all extremities. BP 149/63, HR 60, afebrile. o2Sat 99 % RA. Patient does not feel any difference with or without O2 supplement. We discussed goals of care. Patient feels tired from all surgical interventions and is planing on taking it easy at least to the end of this year, and later decide on further surgical interventions. I supported him. Patient lives with his and they share the house chores. he is able to drive him self to HD 3X a week. Patient's biggest concern is cough during the night. We discussed techniques of sleeping 2-3 pillows at night. I offered rationale for this. Patient was very open for new suggestions. He feels as long as he adapts well to " new him" , sooner he will feel better. At the end of our discussion, patient expressed appreciation for this visit. Impression * Chronic, dry cough affects ADLs and sleep pattern * Patient is trying to adapt to his new state f health and continue with his ADLs * O2 supplement does not improve breathing pattern * Patient is looking toward discharge home Plan * Reinforce use of 2-3 pillows at night, upon discharge * Discharge home Thank you very much for consulting Palliative Care.
--- NOTE | 2018-01-17 16:43 | CP.PCM.DIS ---
<Winifred Lewis Kelly - Last Filed: 01/17/18 16:39> Provider - Provider Date of Admission: 01/12/18 16:22 Attending physician: Julius Horn MD Primary care physician: Dr. Golden Consults: Dr. Kirk (cardio) Dr. Higuera (nephro) Dr. Cyr (pulm) Dr. Mauricio (vascular) Time Spent in preparation of Discharge (in minutes): 45 Diagnosis - Discharge Diagnosis (1) Persistent cough for 3 weeks or longer Status: Chronic (2) Atrial fibrillation, currently in sinus rhythm Status: Chronic (3) ESRD (end stage renal disease) on dialysis Status: Chronic Priority: Medium (4) Anemia Status: Chronic (5) Transaminitis Status: Acute (6) Renal cyst Status: Chronic (7) CAD (coronary artery disease) Status: Chronic Priority: Medium (8) HLD (hyperlipidemia) Status: Chronic Priority: Medium (9) Constipation Status: Resolved Hospital Course - Lab Results Lab Results: Micro Results 01/13/18 Unknown Blood-Venous Blood Culture - Preliminary NO GROWTH AFTER 4 DAYS 01/13/18 Unknown Blood-Venous Blood Culture - Preliminary NO GROWTH AFTER 4 DAYS 01/14/18 14:00 Sputum Gram Stain - Final 01/14/18 14:00 Sputum Sputum Culture - Final Most Recent Lab Values WBC 15.8 K/uL (4.8-10.8) H 01/17/18 07:30 RBC 3.13 Mil/uL (4.40-5.90) L 01/17/18 07:30 Hgb 10.2 g/dL (12.0-18.0) L 01/17/18 07:30 Hct 30.6 % (35.0-51.0) L 01/17/18 07:30 MCV 97.7 fL (80.0-94.0) H 01/17/18 07:30 MCH 32.8 pg (27.0-31.0) H 01/17/18 07:30 MCHC 33.5 g/dL (33.0-37.0) 01/17/18 07:30 RDW 16.4 % (11.5-14.5) H 01/17/18 07:30 Plt Count 196 K/uL (130-400) 01/17/18 07:30 MPV 10.7 fL (7.2-11.7) 01/17/18 07:30 Neut % (Auto) 87.9 % (50.0-75.0) H 01/17/18 07:30 Lymph % (Auto) 6.6 % (20.0-40.0) L 01/17/18 07:30 [place] % (Auto) 5.4 % (0.0-10.0) 01/17/18 07:30 Eos % (Auto) 0.0 % (0.0-4.0) 01/17/18 07:30 Baso % (Auto) 0.1 % (0.0-2.0) 01/17/18 07:30 Neut # (Auto) 13.8 K/uL (1.8-7.0) H 01/17/18 07:30 Lymph # (Auto) 1.0 K/uL (1.0-4.3) 01/17/18 07:30 [place] # (Auto) 0.9 K/uL (0.0-0.8) H 01/17/18 07:30 Eos # (Auto) 0.0 K/uL (0.0-0.7) 01/17/18 07:30 Baso # (Auto) 0.0 K/uL (0.0-0.2) 01/17/18 07:30 Neutrophils % (Manual) 86 % (50-75) H 01/17/18 07:30 Band Neutrophils % 8 % (0-2) H 01/16/18 07:19 Lymphocytes % (Manual) 8 % (20-40) L 01/17/18 07:30 Reactive Lymphs % 1 % (0-0) H 01/17/18 07:30 Monocytes % (Manual) 4 % (0-10) 01/17/18 07:30 Myelocytes % 1 % (0-0) H 01/17/18 07:30 Nucleated RBC % 1 % (0-0) H 01/17/18 07:30 Platelet Estimate Normal (NORMAL) 01/17/18 07:30 Large Platelets Present 01/17/18 07:30 Hypochromasia (manual) Slight 01/17/18 07:30 Poikilocytosis (manual Slight 01/17/18 07:30 Basophilic Stippling Slight 01/16/18 07:19 Anisocytosis (manual) Slight 01/17/18 07:30 Microcytosis (manual) Slight 01/17/18 07:30 Macrocytosis (manual) Slight 01/17/18 07:30 Target Cells Slight 01/12/18 12:10 Tear Drop Cells Slight 01/13/18 08:11 Ovalocytes Slight 01/16/18 07:19 PT 16.4 SECONDS (9.7-12.2) H 01/13/18 08:11 INR 1.4 01/13/18 08:11 APTT 28 SECONDS (21-34) 01/13/18 08:11 D-Dimer, Quantitative 1892 ng/mlDDU (0-243) H 01/12/18 12:10 Puncture Site Rra 01/12/18 12:05 pCO2 34 mm/Hg (35-45) L 01/12/18 12:05 pO2 76 mm/Hg (80-100) L 01/12/18 12:05 HCO3 30.6 mmol/L (21-28) H 01/12/18 12:05 ABG pH 7.55 (7.35-7.45) H 01/12/18 12:05 ABG Total CO2 30.7 mmol/L (22-28) H 01/12/18 12:05 ABG O2 Saturation 97.3 % (95-98) 01/12/18 12:05 ABG Base Excess 7.3 mmol/L (-2.0-3.0) H 01/12/18 12:05 Luis Test Po 01/12/18 12:05 ABG Potassium 3.7 mmol/L (3.6-5.2) 01/12/18 12:05 A-a O2 Difference 31.0 mm/Hg 01/12/18 12:05 Respiratory Index 0.4 01/12/18 12:05 Sodium 140.0 mmol/l (132-148) 01/12/18 12:05 Chloride 100.0 mmol/L (98-107) 01/12/18 12:05 Glucose 129 mg/dl (75-110) H 01/12/18 12:05 Lactate 3.3 mmol/L (0.7-2.1) H 01/12/18 12:05 FiO2 21.0 % 01/12/18 12:05 Sodium 137 mmol/L (132-148) 01/17/18 07:30 Potassium 4.1 mmol/L (3.6-5.2) 01/17/18 07:30 Chloride 88 mmol/L (98-107) L 01/17/18 07:30 Carbon Dioxide 27 mmol/L (22-30) 01/17/18 07:30 Anion Gap 26 (10-20) H 01/17/18 07:30 BUN 73 mg/dL (9-20) H 01/17/18 07:30 Creatinine 6.9 mg/dL (0.8-1.5) H 01/17/18 07:30 Est GFR ( Amer) 9 01/17/18 07:30 Est GFR (Non-Af Amer) 8 01/17/18 07:30 Random Glucose 167 mg/dL (75-110) H 01/17/18 07:30 Hemoglobin A1c 5.4 % (4.2-6.5) 01/13/18 08:11 Calcium 8.0 mg/dl (8.6-10.4) L 01/17/18 07:30 Phosphorus 5.1 mg/dL (2.5-4.5) H 01/17/18 07:30 Magnesium 2.4 mg/dL (1.6-2.3) H 01/17/18 07:30 Total Bilirubin 0.9 mg/dL (0.2-1.3) 01/17/18 07:30 AST 85 U/L (17-59) H D 01/17/18 07:30 ALT 127 U/L (21-72) H 01/17/18 07:30 Alkaline Phosphatase 158 U/L (38-126) H 01/17/18 07:30 Total Creatine Kinase 139 U/L (55-170) 01/13/18 01:14 CK-MB (Mass) 0.59 ng/mL (0.0-3.38) 01/13/18 01:14 Troponin I 0.3460 ng/mL (0.00-0.120) H* 01/13/18 01:14 NT-Pro-B Natriuret Pep 69242 pg/mL (0-900) H 01/12/18 12:10 Total Protein 7.4 g/dL (6.3-8.3) 01/17/18 07:30 Albumin 3.9 g/dL (3.5-5.0) 01/17/18 07:30 Globulin 3.5 gm/dL (2.2-3.9) 01/17/18 07:30 Albumin/Globulin Ratio 1.1 (1.0-2.1) 01/17/18 07:30 Triglycerides 114 mg/dL (0-149) 01/13/18 08:11 Cholesterol 94 mg/dL (0-199) 01/13/18 08:11 LDL Cholesterol Direct 34 mg/dL (0-129) 01/13/18 08:11 HDL Cholesterol 26 mg/dL (30-70) L 01/13/18 08:11 Procalcitonin 2.08 NG/ML (0.19-0.49) H 01/13/18 08:11 Arterial Blood Potassium 3.7 mmol/L (3.6-5.2) 01/12/18 12:05 Influenza Typ A,B (EIA) Negative for flu a/b (NEGATIVE) 01/12/18 21:50 - Hospital Course Hospital Course: 83 year old male with past medical history of CAD s/p CABG/AVR 2015, ESRD on HD TTS, HLD, Afib presented [facility] on 01/12/18 for cough. Patient was found to be febrile at 101.9. Chest XR was ordered which showed stable chronic prominence of the bilateral interstitial markings with no consolidations or effusions. Patient was initially treated with Rocephin/Azithromycin 1gm/500mg. Blood and sputum cultures were obtain. Influenza a/b was negative. A chest CTA was ordered to r/o PE. CTA found left upper pole simple cyst on the kidney but was otherwise "unremarkable CT pulm angiogram with no PE." An echocardiogram was ordered which showed borderline concentric LVH with an EF of 45-50%. Hypokinesis of the mid-anteroseptal wall along with mild aortic stenosis and mitral regurgitation were also uncovered. Dr. Kirk/Kevyn from cardiology were consulted who concurred with current treatment. Dr. Hipolito Long/ Dr. Higuera from nephrology were consulted and recommended continuation of patient's current hemodialysis schedule. Dr. Cyr from Pulmonology was consulted who recommended CT of sinuses which showed mild sinus mucosal thickening and slight septum deviation to right. Dr. Cyr also recommended phenergan DM, steroid nasal spray, short course of IV steriods and continuation of azithromycin. Patient was continued on regimen of tylenol prn for fever, zithromax 500mg po QD , rocephin 1g IV QD, robitussin PRN, florastor 150mg PO BID, Tessalon perls, fluticasone nasal spray, solumedrol 40mg IV Q12, promethazine DM Q6h PRN, Duonebs Q6h (started on 01/16/18) and Advair 250/50 1 puff Q12 (started on ). Patient was continued on home medications of ASA 81mg, Lopressor 25mg, cozaar mg, renvela 800 mg TID, Sensipar 30mg and eliquis 5mg BID. Patient was continued on his dialysis T, Th, S and will continue as an outpatient. While patient was in hospital a renal ultrasound was ordered to evaluate the findings from the CTA. Simple cyst of left upper kidney was confirmed. An abdominal aortic aneurysm was found measuring 4.4x4.[address] Mauricio from surgery was consulted in regards to the aneurysm who recommended follow up as an outpatient in 6-12 months. On 01/14/18, patient's AST and ALT were found to be elevated at 146/108 likely secondary to rocephin/azithromycin. These medications were discontinued which saw a decrease in AST/ALT to 85/127 upon discharge. Patient's WBC was found to be elevated on 01/16/18 at 17.1 likely secondary to steroid admission. Upon discharge, patient was diagnosed with upper airway cough syndrome vs CHF exacerbation by Dr. Cyr. Patient stated his cough was now a "half cough". Patient's fever had subsided. Blood and sputum cultures showed no growth after 4 days. Patient was deemed stable from Respiratory, Cardiac, Renal and medical standpoint. Patient was instructed to follow up with an ENT of his primary care doctors choice, PT at a location of his choice, Pulmonology with Dr. Cyr and Cardiology with Dr. Kirk within ten days of discharge and Dr. Mauricio in 6 months. Patient was discharged with prednisone taper, Advair 250/50, ASA 81mg, Lopressor 25mg, cozaar mg, renvela 800 mg TID, Sensipar 30mg, eliquis 5mg BID, [id number], ipratropium 17mcg/actuation, Singulair 10mg, crestor 5mg, amlodipine 5mg. This is a summary of the patient's hospital course, please see chart for full details. Discharge Exam - Additional Findings Additional findings: - Constitutional Appears: Non-toxic, No Acute Distress - Head Exam Head Exam: ATRAUMATIC, NORMAL INSPECTION, NORMOCEPHALIC - Eye Exam Eye Exam: EOMI, Normal appearance, PERRL Pupil Exam: NORMAL ACCOMODATION - ENT Exam ENT Exam: Mucous Membranes Moist - Neck Exam Neck Exam: Full ROM, Normal Inspection. absent: Lymphadenopathy - Respiratory Exam Respiratory Exam: rales b/l lower lung bases, NORMAL BREATHING PATTERN - Cardiovascular Exam Cardiovascular Exam: REGULAR RHYTHM, +S1, +S2, Murmur (systolic ejection murmur ). absent: Bradycardia, Tachycardia - GI/Abdominal Exam GI & Abdominal Exam: Soft, Normal Bowel Sounds. absent: Distended, Tenderness - Extremities Exam Extremities Exam: Normal Inspection. absent: Calf Tenderness, Pedal Edema - Back Exam Back Exam: NORMAL INSPECTION - Neurological Exam Neurological Exam: Alert, Awake, Oriented x3 - Psychiatric Exam Psychiatric exam: Normal Affect, Normal Mood - Skin Skin Exam: Dry, Intact, Normal Color, Warm Discharge Plan - Discharge Medications Prescriptions: amLODIPine [Norvasc] 5 mg PO DAILY #30 tab Apixaban [Eliquis] 5 mg PO BID #60 tablet Aspirin [Ecotrin] 81 mg PO DAILY 30 Days #30 tabec Cinacalcet [Sensipar] 30 mg PO DAILY #30 tab Docusate [Colace] 100 mg PO TID #90 cap Fluticasone/Salmeterol 250/50 [Advair Diskus 250/50] 1 puff INH RQ12 #1 dsk Ipratropium [Atrovent] 0.018 mg IH Q6H #1 inhaler Losartan [Cozaar] 50 mg PO DAILY #30 tab Metoprolol Tartrate [Lopressor] 25 mg PO BID 30 Days #60 tab Montelukast Sodium [Singulair] 10 mg PO DAILY #30 tablet predniSONE [predniSONE Tab] 10 mg PO DAILY #15 tab Rosuvastatin Calcium [Crestor] 5 mg PO DAILY #30 tab Sevelamer Carbonate [Renvela] 800 mg PO TID #90 tab - Follow Up Plan Condition: STABLE Disposition: HOME/ ROUTINE Instructions: Dialysis Diet , Atrial Fibrillation (DC), Hemodialysis (DC), Coronary Heart Disease (DC), Atrial Flutter (DC), End Stage Kidney Disease (DC) Additional Instructions: 1). Schedule follow up with your Primary Care Physician Dr. Bennett to help coordinate your health care. Please bring your discharge paperwork with you to your appointment with Dr. Bennett for his review. 2). Through Dr. Bennett's office you will need to arrange the following: Repeat Ultrasound of Kidneys in 6 to 12 months to make sure that your cysts have not grown in size. Referral and recommendation for Ear, Nose, and Throat specialist of Dr. Bennett' s choice for second opinion concerning your cough. Referral for outpatient physical therapy as you declined to be transferred to subacute rehab from the hospital. 3). Schedule follow up with your Lung Pysician Dr. Cyr by calling his office at [phone]. This follow up should take place in the next 10 days. 4). Schedule follow up with your Heart Physician Dr. Kirk by calling his office at [phone]. This follow up should take place in the next 10 days. 5). Schedule follow up with Vascular Surgeon Dr. Mauricio as instructed by Dr. Bennett for repeat imaging of your abdomen for monitoring of your abdominal aneurysm which should take place in the next 6 [address] Mauricio's office number is [phone]. 6). Please have the following prescriptions filled at your pharmacy on your way home from the hospital and take as directed. These are the only medications that you should be taking: Eliquis 5 mg, 1 tablet by mouth 2x/day (breakfast and dinner), Dispense #60, NO refills Aspirin 81 mg, 1 tablet by mouth 1x/day (lunch), Dispense #30, NO refills Sensipar 30 mg, 1 tablet by mouth 1x/day (breakfast), Dispense #30, NO refills Colace 100 mg, 1 tablet by mouth 3x/day (breakfast, lunch, dinner), Dispense #90 , NO refills Advair 250/50 mcg/actuation, 1 inhalation by mouth 2x/day (breakfast and dinner) , Dispense #1, NO refills Ipratropium 17 mcg/actuation, 2 inhalations by mouth every 6 hours ONLY NEEDED for severe shortness of breath/wheezing, Dispense #1, NO refills Losartan 50 mg, 1 tablet by mouth 1x/day (lunch), Dispense #30, NO refills Metoprolol Tartrate 25 mg, 1 tablet by mouth 2x/day (breakfast and dinner), Dispense #60, NO refills Singulair 10 mg, 1 tablet by mouth 1x/day (dinner), Dispense #30, NO refills Crestor 5 mg, 1 tablet by mouth 1x/day (dinner), Dispense #30, NO refills Renvela 800 mg, 1 tablet by mouth 3x/day (breakfast, lunch, dinner), Dispense # 90, NO refills Amlodipine 5 mg, 1 tablet by mouth 1x/day (lunch), Dispense #30, NO refills Prednisone 10 mg, 5 tablets by mouth 1x/day (breakfast) on 01/18/18, 4 tablets by mouth 1x/day (breakfast) on 01/19/18, 3 tablets by mouth 1x/day (breakfast) on 01/20/18, 2 tablets by mouth 1x/day (breakfast) on 01/21/18, 1 tablet by mouth 1x/day (breakfast) on 01/22/18, Dispense #15, NO refills 7). Please follow the instructions above. Failure to do so will cause serious harm to your health. 8). Please take care and be well. Referrals: Bobby Cyr MD [Staff Provider] - Surendra Kirk MD [Staff Provider] - Silvestre Bennett DO [Doctor Osteopathy] - <Julius Horn - Last Filed: 01/17/18 20:36> Provider - Provider Date of Admission: 01/12/18 16:22 Attending physician: Julius Horn MD Time Spent in preparation of Discharge (in minutes): 40 Hospital Course - Lab Results Lab Results: Micro Results 01/13/18 Unknown Blood-Venous Blood Culture - Preliminary NO GROWTH AFTER 4 DAYS 01/13/18 Unknown Blood-Venous Blood Culture - Preliminary NO GROWTH AFTER 4 DAYS 01/14/18 14:00 Sputum Gram Stain - Final 01/14/18 14:00 Sputum Sputum Culture - Final Most Recent Lab Values WBC 15.8 K/uL (4.8-10.8) H 01/17/18 07:30 RBC 3.13 Mil/uL (4.40-5.90) L 01/17/18 07:30 Hgb 10.2 g/dL (12.0-18.0) L 01/17/18 07:30 Hct 30.6 % (35.0-51.0) L 01/17/18 07:30 MCV 97.7 fL (80.0-94.0) H 01/17/18 07:30 MCH 32.8 pg (27.0-31.0) H 01/17/18 07:30 MCHC 33.5 g/dL (33.0-37.0) 01/17/18 07:30 RDW 16.4 % (11.5-14.5) H 01/17/18 07:30 Plt Count 196 K/uL (130-400) 01/17/18 07:30 MPV 10.7 fL (7.2-11.7) 01/17/18 07:30 Neut % (Auto) 87.9 % (50.0-75.0) H 01/17/18 07:30 Lymph % (Auto) 6.6 % (20.0-40.0) L 01/17/18 07:30 [place] % (Auto) 5.4 % (0.0-10.0) 01/17/18 07:30 Eos % (Auto) 0.0 % (0.0-4.0) 01/17/18 07:30 Baso % (Auto) 0.1 % (0.0-2.0) 01/17/18 07:30 Neut # (Auto) 13.8 K/uL (1.8-7.0) H 01/17/18 07:30 Lymph # (Auto) 1.0 K/uL (1.0-4.3) 01/17/18 07:30 [place] # (Auto) 0.9 K/uL (0.0-0.8) H 01/17/18 07:30 Eos # (Auto) 0.0 K/uL (0.0-0.7) 01/17/18 07:30 Baso # (Auto) 0.0 K/uL (0.0-0.2) 01/17/18 07:30 Neutrophils % (Manual) 86 % (50-75) H 01/17/18 07:30 Band Neutrophils % 8 % (0-2) H 01/16/18 07:19 Lymphocytes % (Manual) 8 % (20-40) L 01/17/18 07:30 Reactive Lymphs % 1 % (0-0) H 01/17/18 07:30 Monocytes % (Manual) 4 % (0-10) 01/17/18 07:30 Myelocytes % 1 % (0-0) H 01/17/18 07:30 Nucleated RBC % 1 % (0-0) H 01/17/18 07:30 Platelet Estimate Normal (NORMAL) 01/17/18 07:30 Large Platelets Present 01/17/18 07:30 Hypochromasia (manual) Slight 01/17/18 07:30 Poikilocytosis (manual Slight 01/17/18 07:30 Basophilic Stippling Slight 01/16/18 07:19 Anisocytosis (manual) Slight 01/17/18 07:30 Microcytosis (manual) Slight 01/17/18 07:30 Macrocytosis (manual) Slight 01/17/18 07:30 Target Cells Slight 01/12/18 12:10 Tear Drop Cells Slight 01/13/18 08:11 Ovalocytes Slight 01/16/18 07:19 PT 16.4 SECONDS (9.7-12.2) H 01/13/18 08:11 INR 1.4 01/13/18 08:11 APTT 28 SECONDS (21-34) 01/13/18 08:11 D-Dimer, Quantitative 1892 ng/mlDDU (0-243) H 01/12/18 12:10 Puncture Site Rra 01/12/18 12:05 pCO2 34 mm/Hg (35-45) L 01/12/18 12:05 pO2 76 mm/Hg (80-100) L 01/12/18 12:05 HCO3 30.6 mmol/L (21-28) H 01/12/18 12:05 ABG pH 7.55 (7.35-7.45) H 01/12/18 12:05 ABG Total CO2 30.7 mmol/L (22-28) H 01/12/18 12:05 ABG O2 Saturation 97.3 % (95-98) 01/12/18 12:05 ABG Base Excess 7.3 mmol/L (-2.0-3.0) H 01/12/18 12:05 Luis Test Po 01/12/18 12:05 ABG Potassium 3.7 mmol/L (3.6-5.2) 01/12/18 12:05 A-a O2 Difference 31.0 mm/Hg 01/12/18 12:05 Respiratory Index 0.4 01/12/18 12:05 Sodium 140.0 mmol/l (132-148) 01/12/18 12:05 Chloride 100.0 mmol/L (98-107) 01/12/18 12:05 Glucose 129 mg/dl (75-110) H 01/12/18 12:05 Lactate 3.3 mmol/L (0.7-2.1) H 01/12/18 12:05 FiO2 21.0 % 01/12/18 12:05 Sodium 137 mmol/L (132-148) 01/17/18 07:30 Potassium 4.1 mmol/L (3.6-5.2) 01/17/18 07:30 Chloride 88 mmol/L (98-107) L 01/17/18 07:30 Carbon Dioxide 27 mmol/L (22-30) 01/17/18 07:30 Anion Gap 26 (10-20) H 01/17/18 07:30 BUN 73 mg/dL (9-20) H 01/17/18 07:30 Creatinine 6.9 mg/dL (0.8-1.5) H 01/17/18 07:30 Est GFR ( Amer) 9 01/17/18 07:30 Est GFR (Non-Af Amer) 8 01/17/18 07:30 Random Glucose 167 mg/dL (75-110) H 01/17/18 07:30 Hemoglobin A1c 5.4 % (4.2-6.5) 01/13/18 08:11 Calcium 8.0 mg/dl (8.6-10.4) L 01/17/18 07:30 Phosphorus 5.1 mg/dL (2.5-4.5) H 01/17/18 07:30 Magnesium 2.4 mg/dL (1.6-2.3) H 01/17/18 07:30 Total Bilirubin 0.9 mg/dL (0.2-1.3) 01/17/18 07:30 AST 85 U/L (17-59) H D 01/17/18 07:30 ALT 127 U/L (21-72) H 01/17/18 07:30 Alkaline Phosphatase 158 U/L (38-126) H 01/17/18 07:30 Total Creatine Kinase 139 U/L (55-170) 01/13/18 01:14 CK-MB (Mass) 0.59 ng/mL (0.0-3.38) 01/13/18 01:14 Troponin I 0.3460 ng/mL (0.00-0.120) H* 01/13/18 01:14 NT-Pro-B Natriuret Pep 00240 pg/mL (0-900) H 01/12/18 12:10 Total Protein 7.4 g/dL (6.3-8.3) 01/17/18 07:30 Albumin 3.9 g/dL (3.5-5.0) 01/17/18 07:30 Globulin 3.5 gm/dL (2.2-3.9) 01/17/18 07:30 Albumin/Globulin Ratio 1.1 (1.0-2.1) 01/17/18 07:30 Triglycerides 114 mg/dL (0-149) 01/13/18 08:11 Cholesterol 94 mg/dL (0-199) 01/13/18 08:11 LDL Cholesterol Direct 34 mg/dL (0-129) 01/13/18 08:11 HDL Cholesterol 26 mg/dL (30-70) L 01/13/18 08:11 Procalcitonin 2.08 NG/ML (0.19-0.49) H 01/13/18 08:11 Arterial Blood Potassium 3.7 mmol/L (3.6-5.2) 01/12/18 12:05 Influenza Typ A,B (EIA) Negative for flu a/b (NEGATIVE) 01/12/18 21:50 Attending/Attestation - Attestation I have personally seen and examined this patient.: Yes I have fully participated in the care of the patient.: Yes I have reviewed all pertinent clinical information, including history, physical exam and plan: Yes
--- NOTE | 2018-01-17 17:55 | CON ---
DATE: 01/17/2018 HISTORY OF PRESENT ILLNESS: The patient is an 83-year-old man admitted to the hospital with respiratory problems, has been on dialysis for a number of years by means of left arm fistula, which has been his only access. PAST MEDICAL HISTORY: Includes coronary artery bypass surgery done a few years ago with vein harvest in the left leg. Other than that, he has been in fairly good health except for being on dialysis for a number of years. FAMILY HISTORY: Significant for his sister who is also affected with renal insufficiency. PHYSICAL EXAMINATION: GENERAL: Shows palpable aneurysm. VITAL SIGNS: His height is 6 feet 4 inches, 183 pounds. EXTREMITIES: Femoral pulses are palpable, both popliteals are palpable, right more so than the left. No palpable aneurysm below the knee. IMPRESSION: My impression is that the patient has a 4.4 cm aneurysm measured on ultrasound exam. My recommendation is that this be monitored. I will not recommend any surgical intervention. He has been evaluated previously, but the measurements from his previous evaluation are not available. He should see me in the next 6 months. Followup examination is done. If this increases in size or approaches 5 cm, I would recommend endovascular intervention. Cornelio Mauricio Jr., MD
== END 2018-01-17 14:13 | disposition home or self-care (01) | DRG 202 ==
LOC: C.ER 10:44 → C.9E 16:22 → C.6T 17:48
PROVIDERS: ADMIT Family Medicine; ATTEND Family Medicine
DX: J20.9 Acute bronchitis, unspecified (principal); N18.6 End stage renal disease; I48.92 Unspecified atrial flutter; I12.0 Hypertensive chronic kidney disease with stage 5 chronic kidney disease or end stage renal disease; I71.4 Abdominal aortic aneurysm, without rupture; N28.1 Cyst of kidney, acquired; R09.02 Hypoxemia; T36.1X5A Adverse effect of cephalosporins and other beta-lactam antibiotics, initial encounter; T38.0X5A Adverse effect of glucocorticoids and synthetic analogues, initial encounter; D64.9 Anemia, unspecified; D72.829 Elevated white blood cell count, unspecified; E78.00 Pure hypercholesterolemia, unspecified; E78.5 Hyperlipidemia, unspecified; I08.0 Rheumatic disorders of both mitral and aortic valves; I25.10 Atherosclerotic heart disease of native coronary artery without angina pectoris; I27.20 Pulmonary hypertension, unspecified; I48.91 Unspecified atrial fibrillation; Z79.82 Long term (current) use of aspirin; Z79.01 Long term (current) use of anticoagulants; Z95.1 Presence of aortocoronary bypass graft; Z95.2 Presence of prosthetic heart valve; Z95.5 Presence of coronary angioplasty implant and graft; Z99.2 Dependence on renal dialysis